=== PATIENT | female | born 1935 | race Caucasian/White ===

== ENCOUNTER 2022-03-22 15:18 | Inpatient (IN) ==
--- NOTE | 2022-03-22 15:30 | DR.SOBA ---
HPI Time Seen Time Seen by Provider: 03/22/22 15:38 Complaints Chief Complaint Doctors Comments: 86 y/o female, h/o COPD, CHF, brought in via EMS with respiratory distress. Pt awake, but in respiratory distress. Unable to verbalize complaints. Unknown how long she has been sick. Does not nod to quest ions. Pulse ox 75% on EMS arrival. 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 Social History Do you use any recreational Drugs:: No ROS Review of Systems Unable to Obtain Due To: Altered mental status PE Vital Signs Vitals: Temperature 97.7 F Pulse Rate 90 Respiratory Rate 25 Blood Pressure [Right Arm] 105/53 Blood Pressure 126/58 O2 Sat by Pulse Oximetry 98 General Limitations: Altered Mental Status General Appearance: In Distress and Other (awake, tachyneic) Eyes Eye exam: PERRL and EOMI ENT ENT Exam: Normal Exam Neck Neck Exam: Normal Inspection Chest Chest Inspection: Symmetric Chest Wall Rise Respiratory Respiratory Exam: Respiratory Distress Respiratory Exam: Left: Rales and Right: Decreased Breath Sounds Cardiovascular Cardiovascular Exam: Regular Rate, Normal Rhythm and Normal Heart Sounds Abdominal Exam Abdominal Exam: Soft; negative Tenderness Extremities Extremities Exam: negative Tenderness and Edema Neurologic Neurological Exam: Other (awake, non verbal) Skin Skin Exam: Warm and Dry MDM Differential Diagnosis Differential Diagnosis: COPD, Pneumonia, Pneumothorax, Pulmonary embolism, Respiratory Failure and Respiratory Insufficiency COURSE Treatment Treatment: 86 y/o female, with COPD, presents with respiratory distress. + altered, unable to provide history, complaints. W/u initiated. Taken off NRB, put on NC. Not oxygenating well on NC. Changed to bipap. 1657 - CXR shows R PTX, about 40%. Call put out to surgery for chest tube. Changed back to NRB for now. 1828 - Dr Vela placed R chest tube. Repeat CXR better. Good pulse ox on 3 L NC now. Call put otu to Dr Portillo, covering for Dr Posada, will admit. ROR Labs Reviewed Laboratory Results Reviewed?: Yes Result Diagrams: 03/22/22 15:50 03/22/22 15:50 Laboratory: WBC 8.0 X10^3/uL (3.6-10.0) 03/22/22 15:50 RBC 3.66 X10^6/uL (3.5-5.4) 03/22/22 15:50 Hgb 9.8 g/dL (12.0-16.0) L 03/22/22 15:50 Hct 30.7 % (36.0-47.0) L 03/22/22 15:50 MCV 83.8 fL (80.0-100.0) 03/22/22 15:50 MCH 26.7 pg (27.0-34.0) L 03/22/22 15:50 MCHC 31.8 g/dL (33.0-35.0) L 03/22/22 15:50 RDW 20.4 % (11.6-16.5) H 03/22/22 15:50 Plt Count 205 X10^3/uL (150.0-450.0) 03/22/22 15:50 Plt Count Comment Adequate (ADEQUATE) 03/22/22 15:50 MPV 9.3 fL (7.4-11.0) 03/22/22 15:50 Neut % (Auto) 46.2 % (42.0-75.0) 03/22/22 15:50 Lymph % (Auto) 41.3 % (21.0-51.0) 03/22/22 15:50 [place] % (Auto) 11.4 % (0.0-13.0) 03/22/22 15:50 Eos % (Auto) 0.8 % (0.9-2.9) L 03/22/22 15:50 Baso % (Auto) 0.3 % (0.2-1.0) 03/22/22 15:50 Neut # (Auto) 3.7 x10^3/uL (2.2-4.8) 03/22/22 15:50 Lymph # (Auto) 3.3 X10^3/uL (1.3-2.9) H 03/22/22 15:50 [place] # (Auto) 0.9 x10^3/uL (0.3-0.8) H 03/22/22 15:50 Eos # (Auto) 0.1 x10^3/uL (0.0-0.2) 03/22/22 15:50 Baso # (Auto) 0.0 X10^3/uL (0.0-0.1) 03/22/22 15:50 Absolute Nucleated RBC 0.2 /100WBC 03/22/22 15:50 Plt Morphology Comment Normal (NORMAL) 03/22/22 15:50 RBC Morphology Abnormal (NORMAL) A 03/22/22 15:50 Hypochromasia Slight A 03/22/22 15:50 Anisocytosis 1+ A 03/22/22 15:50 Sample Site Rbra 03/22/22 15:32 ABG pH 7.110 (7.35-7.45) L* 03/22/22 15:32 ABG pCO2 Not Reportable 03/22/22 15:32 ABG pO2 38.0 mmHg (80.0-100.0) L* 03/22/22 15:32 ABG HCO3 Not Reportable 03/22/22 15:32 ABG O2 Saturation Not Reportable 03/22/22 15:32 ABG Base Excess Not Reportable 03/22/22 15:32 Nabeel Test N/a 03/22/22 15:32 A-a Gradient Not Reportable 03/22/22 15:32 FiO2 32.0 03/22/22 15:32 Blood Gas Comments Pt soha well elj 03/22/22 15:32 Sodium 137 mmol/L (136-145) 03/22/22 15:50 Corrected Sodium 140 mmol/L (136-145) 03/22/22 15:50 Potassium 4.3 mmol/L (3.5-5.1) 03/22/22 15:50 Chloride 96 mmol/L (98-107) L 03/22/22 15:50 Carbon Dioxide 40.8 mmol/L (21-32) H 03/22/22 15:50 BUN 35 mg/dL (7-18) H 03/22/22 15:50 Creatinine 1.16 mg/dL (0.55-1.02) H 03/22/22 15:50 Est GFR (MDRD) Af Amer 57 (>60) L 03/22/22 15:50 Est GFR (MDRD) Non-Af 47 (>60) L 03/22/22 15:50 Glucose 221 mg/dL (65-99) H 03/22/22 15:50 Lactic Acid 1.7 mmol/L (0.4-2.0) 03/22/22 15:50 Calcium 8.6 mg/dL (8.5-10.1) 03/22/22 15:50 Corrected Calcium 9.2 mg/dL (8.5-10.1) 03/22/22 15:50 Total Bilirubin 0.40 mg/dL (0.2-1.0) 03/22/22 15:50 AST 26 Units/L (15-37) 03/22/22 15:50 ALT 14 Units/L (12-78) 03/22/22 15:50 Alkaline Phosphatase 68 Units/L (46-116) 03/22/22 15:50 Creatine Kinase 60 Units/L (26-192) 03/22/22 15:50 CK-MB (CK-2) < 1.0 ng/mL (0-4.0) 03/22/22 15:50 CK/CKMB % Calc 1.7 % (<4) 03/22/22 15:50 Troponin I High Sens 26.6 ng/L (4.0-60.0) 03/22/22 15:50 B-Natriuretic Peptide 125 pg/mL (0-79) H 03/22/22 15:50 Total Protein 7.2 g/dL (6.4-8.2) 03/22/22 15:50 Albumin 3.2 g/dL (3.4-5.0) L 03/22/22 15:50 Globulin 4.0 g/dL (2.5-4.5) 03/22/22 15:50 Albumin/Globulin Ratio 0.8 Ratio (1.1-2.1) L 03/22/22 15:50 SARS-CoV-2 (PCR) Negative (NEGATIVE) 03/22/22 16:10 Influenza Type A (PCR) Negative (NEGATIVE) 03/22/22 16:10 Influenza Type B (PCR) Negative (NEGATIVE) 03/22/22 16:10 RSV (PCR) Negative (NEGATIVE) 03/22/22 16:10 XRAY XRAY Interpreted by: Both X-ray Results: + R sided PTX, 40-50%. EKG Rate: 102 [place]: RAD Rhythm: ST Block: None ST: Nonsp Opioid Opioid Risk Tool Age (Burak box if 16-45): No History of Preadolescent Sexual Abuse: No Total: 0 Total Score Risk Category: Low Risk Copyright: Kahlil GAINES predicting aberrant behaviors Diagnosis Discharge Problem: Spontaneous pneumothorax, COPD exacerbation
[2022-03-22] MEDS ORDERED: SOLU-Medrol 125 MG VIAL IVP ONE (15:38)
[2022-03-22] MEDS ORDERED: DUONEB 0.5 MG/3 MG (3 mL) NEB ONE ×2 (15:38→15:47)
[2022-03-22] MEDS ORDERED: SOLU-Medrol 125 MG VIAL ONE (15:48)
[2022-03-22 16:17] LABS: BASOPHILS % (AUTO) 0.3 % (0.2-1.0); EOSINOPHILS # (AUTO) 0.1 x10^3/uL (0.0-0.2); EOSINOPHILS % (AUTO) 0.8 % (0.9-2.9); HEMATOCRIT 30.7 % (36.0-47.0); HEMOGLOBIN 9.8 g/dL (12.0-16.0); LYMPHOCYTES # (AUTO) 3.3 X10^3/uL (1.3-2.9); LYMPHOCYTES % (AUTO) 41.3 % (21.0-51.0); MEAN CORPUSCULAR HEMOGLOBIN 26.7 pg (27.0-34.0); MEAN CORPUSCULAR HGB CONC 31.8 g/dL (33.0-35.0); MEAN CORPUSCULAR VOLUME 83.8 fL (80.0-100.0); MEAN PLATELET VOLUME 9.3 fL (7.4-11.0); MONOCYTES # (AUTO) 0.9 x10^3/uL (0.3-0.8); MONOCYTES % (AUTO) 11.4 % (0.0-13.0); NEUTROPHILS # (AUTO) 3.7 x10^3/uL (2.2-4.8); NEUTROPHILS % (AUTO) 46.2 % (42.0-75.0); RED BLOOD COUNT 3.66 X10^6/uL (3.5-5.4); RED CELL DISTRIBUTION WIDTH 20.4 % (11.6-16.5)
[2022-03-22 16:41] LABS: ALANINE AMINOTRANSFERASE 14 Units/L (12-78); ALBUMIN 3.2 g/dL (3.4-5.0); ALKALINE PHOSPHATASE 68 Units/L (46-116); ASPARTATE AMINO TRANSFERASE 26 Units/L (15-37); BLOOD UREA NITROGEN 35 mg/dL (7-18); CALCIUM 8.6 mg/dL (8.5-10.1); CARBON DIOXIDE 40.8 mmol/L (21-32); CHLORIDE 96 mmol/L (98-107); CKMB % 1.7 % (<4); COR CA(FOR HYPOALB) 9.2 mg/dL (8.5-10.1); COR NA(FOR HYPERGLY) 140 mmol/L (136-145); CREATINE KINASE 60 Units/L (26-192); CREATINE KINASE MB < 1.0 ng/mL (0-4.0); CREATININE 1.16 mg/dL (0.55-1.02); SODIUM 137 mmol/L (136-145); TOTAL PROTEIN 7.2 g/dL (6.4-8.2); eGFR NON BLACK RACES 47 (>60)
[2022-03-22 16:50] LABS: PLATELET MORPHOLOGY COMMENT NORMAL (NORMAL)
[2022-03-22 16:51] LABS: ANISOCYTOSIS 1+; HYPOCHROMASIA SLIGHT
[2022-03-22 16:59] LABS: LACTIC ACID 1.7 mmol/L (0.4-2.0)
--- NOTE | 2022-03-22 17:38 | RAD ---
HISTORY:Shortness of breathStudy:Single-view chestComparison:09/24/2021Findings:There is a large right pneumothorax of approximately 50%. No mediastinal shift to suggest tension. Left lung is clear. Heart size is normal. Aorta is tortuous and calcified.IMPRESSION:Large right pneumothorax of approximately 50 %.Electronically signed by: KHUSHBU BROCK (Mar 22, 2022 17:37:26)
--- NOTE | 2022-03-22 18:07 | RAD ---
HISTORY:Chest tube placementStudy:Single-view chestComparison:Earlier same dayFindings:Interval placement of right chest tube and re-expansion of the right lung. Tube terminates at the right apex. There is no discernible pneumothorax seen. Left lung is clear.IMPRESSION:Interval right chest tube placement with resolution of right pneumothorax.Electronically signed by: KHUSHBU BROCK (Mar 22, 2022 18:06:23)
[2022-03-22 20:20] LABS: ABG BASE EXCESS 12.5 mmol/L (-2.0-2.0)
[2022-03-22 20:21] LABS: ABG ALLEN TEST POS; ABG HCO3 43.5 mmol/L (22-26)
[2022-03-22] MEDS: NS 1,000 ML IV 1,000 ML IV SCH (20:28)
[2022-03-22] MEDS: PULMICORT NEB TX 0.5 MG NEB SCH (20:51)
[2022-03-22] MEDS: DUONEB 0.5 MG/3 MG (3 mL) NEB SCH (20:51)
[2022-03-22] MEDS ORDERED: ATIVAN TAB 0.5 MG PO SCH (21:00)
[2022-03-22] MEDS ORDERED: ATIVAN INJ 2 MG VIAL IVP SCH (21:00)
[2022-03-22 21:35] LABS: CKMB % 1.8 % (<4); CREATINE KINASE MB 2.1 ng/mL (0-4.0)
--- NOTE | 2022-03-22 22:07 | RAD ---
STUDY: CHEST, 1 VIEWCOMPARISON: 03/22/2022HISTORY: chest tube placement, pneumothorax, copd exacerbationFINDINGS:A right chest tube has been placed with tip projecting over the right upper lung zone. Residual right-sided pneumothorax remains.Cardiomediastinal contour is stable. No pleural effusion is seen. No evidence of a left-sided pneumothorax.IMPRESSION:Right chest tube is been placed with residual right pneumothorax remainingElectronically signed by: Lobito Jain (Mar 22, 2022 22:05:52)
[2022-03-22] MEDS ORDERED: ATIVAN INJ 2 MG VIAL IVP PRN (23:45)
[2022-03-23] MEDS ORDERED: DUONEB 0.5 MG/3 MG (3 mL) NEB SCH
[2022-03-23] MEDS: DUONEB 0.5 MG/3 MG (3 mL) NEB SCH ×6 (00:27→20:30)
[2022-03-23] MEDS: ELIQUIS PO SCH ×3 (01:14→21:10)
[2022-03-23] MEDS: COREG TAB 3.125 MG PO SCH ×3 (01:14→21:09)
[2022-03-23] MEDS: LASIX PO SCH ×3 (01:15→21:10)
[2022-03-23] MEDS: LIPITOR TAB 10 MG PO SCH ×2 (01:16→21:10)
[2022-03-23 03:07] LABS: BASOPHILS % (AUTO) 0.1 % (0.2-1.0); HEMATOCRIT 27.2 % (36.0-47.0); HEMOGLOBIN 8.7 g/dL (12.0-16.0); LYMPHOCYTES # (AUTO) 0.7 X10^3/uL (1.3-2.9); LYMPHOCYTES % (AUTO) 8.8 % (21.0-51.0); MEAN CORPUSCULAR HEMOGLOBIN 26.5 pg (27.0-34.0); MEAN CORPUSCULAR HGB CONC 32.1 g/dL (33.0-35.0); MEAN CORPUSCULAR VOLUME 82.6 fL (80.0-100.0); MEAN PLATELET VOLUME 9.4 fL (7.4-11.0); MONOCYTES # (AUTO) 0.3 x10^3/uL (0.3-0.8); MONOCYTES % (AUTO) 3.7 % (0.0-13.0); NEUTROPHILS # (AUTO) 6.9 x10^3/uL (2.2-4.8); NEUTROPHILS % (AUTO) 87.4 % (42.0-75.0); RED BLOOD COUNT 3.29 X10^6/uL (3.5-5.4); RED CELL DISTRIBUTION WIDTH 20.3 % (11.6-16.5); WHITE BLOOD COUNT 7.9 X10^3/uL (3.6-10.0)
[2022-03-23 03:34] LABS: ALANINE AMINOTRANSFERASE 14 Units/L (12-78); ALBUMIN 2.9 g/dL (3.4-5.0); ALKALINE PHOSPHATASE 69 Units/L (46-116); ASPARTATE AMINO TRANSFERASE 24 Units/L (15-37); BLOOD UREA NITROGEN 37 mg/dL (7-18); CALCIUM 8.5 mg/dL (8.5-10.1); CARBON DIOXIDE 36.2 mmol/L (21-32); CHLORIDE 101 mmol/L (98-107); CKMB % 1.5 % (<4); COR CA(FOR HYPOALB) 9.4 mg/dL (8.5-10.1); COR NA(FOR HYPERGLY) 142 mmol/L (136-145); CREATINE KINASE 131 Units/L (26-192); CREATININE 0.79 mg/dL (0.55-1.02); PLATELET MORPHOLOGY COMMENT NORMAL (NORMAL); SODIUM 141 mmol/L (136-145); TOTAL PROTEIN 6.5 g/dL (6.4-8.2); eGFR NON BLACK RACES > 60 (>60)
[2022-03-23 03:35] LABS: ANISOCYTOSIS 1+; HYPOCHROMASIA SLIGHT
[2022-03-23 05:31] LABS: ABG BASE EXCESS 10.8 mmol/L (-2.0-2.0)
[2022-03-23 05:32] LABS: ABG ALLEN TEST POS; ABG HCO3 39.2 mmol/L (22-26)
[2022-03-23] MEDS: MORPHINE SULFATE INJ 4 MG IVP PRN (08:45)
[2022-03-23] MEDS: PULMICORT NEB TX 0.5 MG NEB SCH ×2 (09:05→20:30)
[2022-03-23] MEDS ORDERED: TYLENOL 325 MG TAB PO PRN (09:08)
[2022-03-23] MEDS: NS 1,000 ML IV 1,000 ML IV SCH (09:33)
--- NOTE | 2022-03-23 10:26 | RAD ---
HISTORYChest 2STUDYAP [id number]/23/2022FINDINGSStable position of right sub apical chest tube. No definite or significant pneumothorax or other extrapulmonary air identified. Heart size normal. No developing infiltrate, pleural fluid or atelectasis. Minimal subcutaneous emphysema right chest wall.IMPRESSIONNo significant pneumothorax demonstrated.Electronically signed by: JACKIE REED (Mar 23, 2022 10:26:14)
--- NOTE | 2022-03-23 11:51 | DR.PROGNOT ---
Hospital Progress Notes - Progress Note for Day of: Progress Note Date: 03/23/22 - Chief Complaint Chief Complaint: stable and comfortable .. s/p placement of RT chest tube for spontaneous pneumothorax .. chest X Ray showed small resedual pneumothorax today. afebrile and stale VSs. - Past Medical Family Social History Past Med/Fam/Surg Hx: No changes since H&P Allergies: Allergies codeine Allergy (Verified 09/24/21 07:06) - Review Of Systems ROS: No change since H&P - Vital Signs Vital Signs: Temperature 97.2 F Pulse Rate 97 Respiratory Rate 20 Blood Pressure [Right Arm] 105/53 Blood Pressure 110/56 O2 Sat by Pulse Oximetry 95 - Physical Exam Oriented: Normal Eyes: Normal Ear: Normal Nose: Normal Respiratory: Right (clear lung , chest tube in place with minimal fluid drainage .. ) Cardiovascular: Normal : Normal Speech Pattern: Clear, Appropriate - Laboratory and Diagnostics Result Diagrams: 03/23/22 02:40 03/23/22 02:40 Labs: Laboratory WBC 7.9 X10^3/uL (3.6-10.0) 03/23/22 02:40 RBC 3.29 X10^6/uL (3.5-5.4) L 03/23/22 02:40 Hgb 8.7 g/dL (12.0-16.0) L 03/23/22 02:40 Hct 27.2 % (36.0-47.0) L 03/23/22 02:40 MCV 82.6 fL (80.0-100.0) 03/23/22 02:40 MCH 26.5 pg (27.0-34.0) L 03/23/22 02:40 MCHC 32.1 g/dL (33.0-35.0) L 03/23/22 02:40 RDW 20.3 % (11.6-16.5) H 03/23/22 02:40 Plt Count 168 X10^3/uL (150.0-450.0) 03/23/22 02:40 Plt Count Comment Adequate (ADEQUATE) 03/23/22 02:40 MPV 9.4 fL (7.4-11.0) 03/23/22 02:40 Neut % (Auto) 87.4 % (42.0-75.0) H 03/23/22 02:40 Lymph % (Auto) 8.8 % (21.0-51.0) L 03/23/22 02:40 [place] % (Auto) 3.7 % (0.0-13.0) 03/23/22 02:40 Eos % (Auto) 0.0 % (0.9-2.9) L 03/23/22 02:40 Baso % (Auto) 0.1 % (0.2-1.0) L 03/23/22 02:40 Neut # (Auto) 6.9 x10^3/uL (2.2-4.8) H 03/23/22 02:40 Lymph # (Auto) 0.7 X10^3/uL (1.3-2.9) L 03/23/22 02:40 [place] # (Auto) 0.3 x10^3/uL (0.3-0.8) 03/23/22 02:40 Eos # (Auto) 0.0 x10^3/uL (0.0-0.2) 03/23/22 02:40 Baso # (Auto) 0.0 X10^3/uL (0.0-0.1) 03/23/22 02:40 Absolute Nucleated RBC 0.0 /100WBC 03/23/22 02:40 Plt Morphology Comment Normal (NORMAL) 03/23/22 02:40 RBC Morphology Abnormal (NORMAL) A 03/23/22 02:40 Hypochromasia Slight A 03/23/22 02:40 Anisocytosis 1+ A 03/23/22 02:40 Sample Site Lrad 03/23/22 05:25 ABG pH 7.350 (7.35-7.45) 03/23/22 05:25 ABG pCO2 71.0 mmHg (35.0-45.0) H* 03/23/22 05:25 ABG pO2 69.0 mmHg (80.0-100.0) L 03/23/22 05:25 ABG HCO3 39.2 mmol/L (22-26) H* 03/23/22 05:25 ABG O2 Saturation 93.0 % (90-100) 03/23/22 05:25 ABG Base Excess 10.8 mmol/L (-2.0-2.0) H 03/23/22 05:25 Nabeel Test Pos 03/23/22 05:25 A-a Gradient 92.0 mmHg 03/23/22 05:25 FiO2 35.0 03/23/22 05:25 Blood Gas Comments João well ms 03/23/22 05:25 Sodium 141 mmol/L (136-145) 03/23/22 02:40 Corrected Sodium 142 mmol/L (136-145) 03/23/22 02:40 Potassium 4.1 mmol/L (3.5-5.1) 03/23/22 02:40 Chloride 101 mmol/L (98-107) 03/23/22 02:40 Carbon Dioxide 36.2 mmol/L (21-32) H 03/23/22 02:40 BUN 37 mg/dL (7-18) H 03/23/22 02:40 Creatinine 0.79 mg/dL (0.55-1.02) 03/23/22 02:40 Est GFR (MDRD) Af Amer > 60 (>60) 03/23/22 02:40 Est GFR (MDRD) Non-Af > 60 (>60) 03/23/22 02:40 Glucose 125 mg/dL (65-99) H 03/23/22 02:40 Lactic Acid 1.7 mmol/L (0.4-2.0) 03/22/22 15:50 Calcium 8.5 mg/dL (8.5-10.1) 03/23/22 02:40 Corrected Calcium 9.4 mg/dL (8.5-10.1) 03/23/22 02:40 Total Bilirubin 0.40 mg/dL (0.2-1.0) 03/23/22 02:40 AST 24 Units/L (15-37) 03/23/22 02:40 ALT 14 Units/L (12-78) 03/23/22 02:40 Alkaline Phosphatase 69 Units/L (46-116) 03/23/22 02:40 Creatine Kinase 131 Units/L (26-192) 03/23/22 02:40 CK-MB (CK-2) 2.0 ng/mL (0-4.0) 03/23/22 02:40 CK/CKMB % Calc 1.5 % (<4) 03/23/22 02:40 Troponin I High Sens 81.4 ng/L (4.0-60.0) H* 03/23/22 02:40 B-Natriuretic Peptide 125 pg/mL (0-79) H 03/22/22 15:50 Total Protein 6.5 g/dL (6.4-8.2) 03/23/22 02:40 Albumin 2.9 g/dL (3.4-5.0) L 03/23/22 02:40 Globulin 3.6 g/dL (2.5-4.5) 03/23/22 02:40 Albumin/Globulin Ratio 0.8 Ratio (1.1-2.1) L 03/23/22 02:40 SARS-CoV-2 (PCR) Negative (NEGATIVE) 03/22/22 16:10 Influenza Type A (PCR) Negative (NEGATIVE) 03/22/22 16:10 Influenza Type B (PCR) Negative (NEGATIVE) 03/22/22 16:10 RSV (PCR) Negative (NEGATIVE) 03/22/22 16:10 - Assessment and Plan 1: recurrent spontaneous pneuomothorax .. ( had one years ago .. COPD . s/p placement of RT chest tube . same plan . - Problem Patient Problems: Patient Problems Spontaneous pneumothorax (Acute) J93.83 COPD exacerbation (Acute) J44.1
[2022-03-23] MEDS: ULTRAM PO PRN (17:14)
[2022-03-23] MEDS ORDERED: BUTT CREAM (COMPOUND) ONE (19:07)
[2022-03-23] MEDS: BUTT CREAM (COMPOUND) TOP PRN (19:15)
--- NOTE | 2022-03-23 20:36 | DR.H&P ---
H&P History & Physical for Day of: H&P Date: 03/23/22 Chief Complaint Chief Complaint: Respiratory distress. Allergies Allergies Allergy/AdvReac Type Severity Reaction Status Date / Time codeine Allergy Verified 09/24/21 07:06 History of Present Illness History of Present Illness: This is an 86-year-old white female who presented to [facility] emergency department via EMS for respiratory distress. She was noted to have to be hypoxic come in with SPO2 of 75% on room air. Chest x-ray was done and revealed she had a right-sided pneumothorax with approximately 50% collapsed lung. She is a poor historian and is difficult obtaining a history from her. Dr. Mc our general surgeon saw the patient in the emergency department and placed a chest tube in the right lung and repeat x-ray after that showed it had re-expanded. Not long after getting to the ICU she got into respiratory distress again and she was put back on BiPAP. Her O2 sats came back up after she was started on the BiPAP. Past Medical History Past Medical History: COPD Past Surgical History Surgical History: Hysterectomy and Ortho Surgery Family History Family Medical History: Cancer Social History Does patient currently use any type of tobacco product: Yes Have you used tobacco products in the last 12 months: Yes Type of Tobacco Use: VAPE Does any household member use tobacco: Yes Alcohol Use: None Drug Use: None Medications Home Medications: codeine Allergy (Verified 09/24/21 07:06) CONTINUE taking the following medications apixaban [Eliquis] 5 mg PO BID 03/22/22 [History] atorvastatin [Lipitor] 10 mg PO HS 03/22/22 [History] carvedilol [Coreg] 3.125 mg PO BID 03/22/22 [History] furosemide [Lasix] 20 mg PO BID 03/22/22 [History] lorazepam 0.5 mg PO BID 03/22/22 [History] potassium chloride 10 meq PO BID 03/22/22 [History] Labs Result Diagrams: 03/23/22 02:40 03/23/22 02:40 Labs: Laboratory WBC 7.9 X10^3/uL (3.6-10.0) 03/23/22 02:40 RBC 3.29 X10^6/uL (3.5-5.4) L 03/23/22 02:40 Hgb 8.7 g/dL (12.0-16.0) L 03/23/22 02:40 Hct 27.2 % (36.0-47.0) L 03/23/22 02:40 MCV 82.6 fL (80.0-100.0) 03/23/22 02:40 MCH 26.5 pg (27.0-34.0) L 03/23/22 02:40 MCHC 32.1 g/dL (33.0-35.0) L 03/23/22 02:40 RDW 20.3 % (11.6-16.5) H 03/23/22 02:40 Plt Count 168 X10^3/uL (150.0-450.0) 03/23/22 02:40 Plt Count Comment Adequate (ADEQUATE) 03/23/22 02:40 MPV 9.4 fL (7.4-11.0) 03/23/22 02:40 Neut % (Auto) 87.4 % (42.0-75.0) H 03/23/22 02:40 Lymph % (Auto) 8.8 % (21.0-51.0) L 03/23/22 02:40 [place] % (Auto) 3.7 % (0.0-13.0) 03/23/22 02:40 Eos % (Auto) 0.0 % (0.9-2.9) L 03/23/22 02:40 Baso % (Auto) 0.1 % (0.2-1.0) L 03/23/22 02:40 Neut # (Auto) 6.9 x10^3/uL (2.2-4.8) H 03/23/22 02:40 Lymph # (Auto) 0.7 X10^3/uL (1.3-2.9) L 03/23/22 02:40 [place] # (Auto) 0.3 x10^3/uL (0.3-0.8) 03/23/22 02:40 Eos # (Auto) 0.0 x10^3/uL (0.0-0.2) 03/23/22 02:40 Baso # (Auto) 0.0 X10^3/uL (0.0-0.1) 03/23/22 02:40 Absolute Nucleated RBC 0.0 /100WBC 03/23/22 02:40 Plt Morphology Comment Normal (NORMAL) 03/23/22 02:40 RBC Morphology Abnormal (NORMAL) A 03/23/22 02:40 Hypochromasia Slight A 03/23/22 02:40 Anisocytosis 1+ A 03/23/22 02:40 Sample Site Lrad 03/23/22 05:25 ABG pH 7.350 (7.35-7.45) 03/23/22 05:25 ABG pCO2 71.0 mmHg (35.0-45.0) H* 03/23/22 05:25 ABG pO2 69.0 mmHg (80.0-100.0) L 03/23/22 05:25 ABG HCO3 39.2 mmol/L (22-26) H* 03/23/22 05:25 ABG O2 Saturation 93.0 % (90-100) 03/23/22 05:25 ABG Base Excess 10.8 mmol/L (-2.0-2.0) H 03/23/22 05:25 Nabeel Test Pos 03/23/22 05:25 A-a Gradient 92.0 mmHg 03/23/22 05:25 FiO2 35.0 03/23/22 05:25 Blood Gas Comments João well ms 03/23/22 05:25 Sodium 141 mmol/L (136-145) 03/23/22 02:40 Corrected Sodium 142 mmol/L (136-145) 03/23/22 02:40 Potassium 4.1 mmol/L (3.5-5.1) 03/23/22 02:40 Chloride 101 mmol/L (98-107) 03/23/22 02:40 Carbon Dioxide 36.2 mmol/L (21-32) H 03/23/22 02:40 BUN 37 mg/dL (7-18) H 03/23/22 02:40 Creatinine 0.79 mg/dL (0.55-1.02) 03/23/22 02:40 Est GFR (MDRD) Af Amer > 60 (>60) 03/23/22 02:40 Est GFR (MDRD) Non-Af > 60 (>60) 03/23/22 02:40 Glucose 125 mg/dL (65-99) H 03/23/22 02:40 Lactic Acid 1.7 mmol/L (0.4-2.0) 03/22/22 15:50 Calcium 8.5 mg/dL (8.5-10.1) 03/23/22 02:40 Corrected Calcium 9.4 mg/dL (8.5-10.1) 03/23/22 02:40 Total Bilirubin 0.40 mg/dL (0.2-1.0) 03/23/22 02:40 AST 24 Units/L (15-37) 03/23/22 02:40 ALT 14 Units/L (12-78) 03/23/22 02:40 Alkaline Phosphatase 69 Units/L (46-116) 03/23/22 02:40 Creatine Kinase 131 Units/L (26-192) 03/23/22 02:40 CK-MB (CK-2) 2.0 ng/mL (0-4.0) 03/23/22 02:40 CK/CKMB % Calc 1.5 % (<4) 03/23/22 02:40 Troponin I High Sens 81.4 ng/L (4.0-60.0) H* 03/23/22 02:40 B-Natriuretic Peptide 125 pg/mL (0-79) H 03/22/22 15:50 Total Protein 6.5 g/dL (6.4-8.2) 03/23/22 02:40 Albumin 2.9 g/dL (3.4-5.0) L 03/23/22 02:40 Globulin 3.6 g/dL (2.5-4.5) 03/23/22 02:40 Albumin/Globulin Ratio 0.8 Ratio (1.1-2.1) L 03/23/22 02:40 SARS-CoV-2 (PCR) Negative (NEGATIVE) 03/22/22 16:10 Influenza Type A (PCR) Negative (NEGATIVE) 03/22/22 16:10 Influenza Type B (PCR) Negative (NEGATIVE) 03/22/22 16:10 RSV (PCR) Negative (NEGATIVE) 03/22/22 16:10 Review of Systems Constitutional: Weakness Eyes: No Symptoms Reported ENT: No Symptoms Reported Respiratory: Shortness of Breath Cardiovascular: No Symptoms Reported Gastrointestinal: No Symptoms Reported Genitourinary: No Symptoms Reported Musculoskeletal: Back Pain Skin: No Symptoms Reported Neurological: No Symptoms Reported Physical Exam Vital Signs: Temperature 97.5 F Pulse Rate 90 Respiratory Rate 25 Blood Pressure [Right Arm] 105/53 Blood Pressure 138/58 O2 Sat by Pulse Oximetry 97 Oriented: Normal Eyes: Normal Ear: Normal Nose: Normal Throat: Normal Respiratory: Diminished Throughout, RUL Diminished, RML Diminished and RLL Diminished Cardiovascular: Normal : Normal Auscultation: Bowel Sounds: Normal Palpation: Normal Tenderness: Normal Skin: Normal Musculoskeletal: Back:Thoracic and Back:Lumbar Psychiatric: Normal Mood Description: Calm Affect: Normal Speech Pattern: Appropriate Assessment/Plan (1) Spontaneous pneumothorax: Status: Acute Plan: Continue with chest tube at this time and repeat chest x-ray in the morning as well as an ABG. (2) COPD exacerbation: Status: Acute Plan: Jet nebs, IV Solu-Medrol and IV antibiotics. Review H&P Reviewed: Yes Patient was examined?: Yes
[2022-03-23] MEDS: SOLU-Medrol 125 MG VIAL IVP SCH (21:12)
[2022-03-24] MEDS: DUONEB 0.5 MG/3 MG (3 mL) NEB SCH ×7 (00:39→20:05)
[2022-03-24] MEDS: SOLU-Medrol 125 MG VIAL IVP SCH ×3 (05:19→21:06)
[2022-03-24 05:29] LABS: BASOPHILS % (AUTO) 0.1 % (0.2-1.0); HEMATOCRIT 23.7 % (36.0-47.0); HEMOGLOBIN 7.8 g/dL (12.0-16.0); LYMPHOCYTES # (AUTO) 0.7 X10^3/uL (1.3-2.9); LYMPHOCYTES % (AUTO) 10.7 % (21.0-51.0); MEAN CORPUSCULAR HEMOGLOBIN 26.9 pg (27.0-34.0); MEAN CORPUSCULAR VOLUME 81.5 fL (80.0-100.0); MEAN PLATELET VOLUME 9.4 fL (7.4-11.0); MONOCYTES # (AUTO) 0.1 x10^3/uL (0.3-0.8); MONOCYTES % (AUTO) 2.1 % (0.0-13.0); NEUTROPHILS # (AUTO) 5.5 x10^3/uL (2.2-4.8); NEUTROPHILS % (AUTO) 87.1 % (42.0-75.0); RED BLOOD COUNT 2.91 X10^6/uL (3.5-5.4); RED CELL DISTRIBUTION WIDTH 20.7 % (11.6-16.5); WHITE BLOOD COUNT 6.4 X10^3/uL (3.6-10.0)
[2022-03-24 05:33] LABS: ABG BASE EXCESS 15.6 mmol/L (-2.0-2.0)
[2022-03-24 05:34] LABS: ABG ALLEN TEST POS; ABG HCO3 41.7 mmol/L (22-26)
[2022-03-24 05:44] LABS: ANISOCYTOSIS 1+; HYPOCHROMASIA 1+; PLATELET MORPHOLOGY COMMENT NORMAL (NORMAL)
[2022-03-24 05:57] LABS: ALANINE AMINOTRANSFERASE 14 Units/L (12-78); ALBUMIN 2.5 g/dL (3.4-5.0); ALKALINE PHOSPHATASE 51 Units/L (46-116); ASPARTATE AMINO TRANSFERASE 21 Units/L (15-37); BLOOD UREA NITROGEN 29 mg/dL (7-18); CALCIUM 8.2 mg/dL (8.5-10.1); CARBON DIOXIDE 36.9 mmol/L (21-32); CHLORIDE 102 mmol/L (98-107); COR CA(FOR HYPOALB) 9.4 mg/dL (8.5-10.1); COR NA(FOR HYPERGLY) 145 mmol/L (136-145); CREATINE KINASE 105 Units/L (26-192); CREATINE KINASE MB < 1.0 ng/mL (0-4.0); CREATININE 0.62 mg/dL (0.55-1.02); SODIUM 144 mmol/L (136-145); TOTAL PROTEIN 5.8 g/dL (6.4-8.2); eGFR NON BLACK RACES > 60 (>60)
--- NOTE | 2022-03-24 06:25 | RAD ---
HISTORYHypoxia, pneumothoraxSTUDYChest AP [id number]/24/2022FINDINGSTher e is a right chest tube in place with its tip in the right apical hemithorax. No definite visible pneumothorax. Heart size is normal. [place] are normal. Lungs are hyperinflated but free of acute infiltrates. Minimal residual subcutaneous emphysema right upper hemithorax. Linear density paralleling the mid left chest wall is likely skin fold artifact. No pleural effusions are identified.IMPRESSIONNo residual or recurrent right pneumothoraxLungs hyperinflated but free of acute infiltratesElectronically signed by: MARISSA DICKERSON (Mar 24, 2022 06:25:29)
[2022-03-24] MEDS: LASIX PO SCH ×2 (08:31→20:36)
[2022-03-24] MEDS: ELIQUIS PO SCH ×2 (08:31→20:36)
[2022-03-24] MEDS: COREG TAB 3.125 MG PO SCH ×2 (08:31→20:36)
[2022-03-24] MEDS: LEVAQUIN PREMIX IV 500 MG 500 MG/100 ML BAG IV SCH (08:32)
[2022-03-24] MEDS: PULMICORT NEB TX 0.5 MG NEB SCH ×2 (08:53→20:05)
[2022-03-24] MEDS ORDERED: KLOR-CON PO PRN (09:36)
[2022-03-24] MEDS ORDERED: POTASSIUM CHL 60 MEQ/NS 0.45% 500 ML IV PRN (09:36)
[2022-03-24] MEDS ORDERED: POTASSIUM CHLORIDE LIQ 20 MEQ UDC PO PRN (09:36)
[2022-03-24] MEDS ORDERED: MICRO K EXTEN CAP 10 MEQ PO PRN (09:36)
[2022-03-24] MEDS ORDERED: K-RIDER 10 MEQ/NS 100 ML 10 MEQ/100 ML BAG IV PRN (09:36)
[2022-03-24] MEDS ORDERED: POTASSIUM CHL 40 MEQ/NS 0.45% 500 ML IV PRN (09:36)
[2022-03-24] MEDS: K-DUR TAB 20 MEQ PO PRN (11:04)
[2022-03-24] MEDS: NS 1,000 ML IV 1,000 ML IV SCH ×3 (11:04→20:14)
[2022-03-24] MEDS: ULTRAM PO PRN ×2 (11:07→21:06)
--- NOTE | 2022-03-24 15:34 | DR.PROGNOT ---
Hospital Progress Notes - Progress Note for Day of: Progress Note Date: 03/24/22 - Chief Complaint Chief Complaint: stable and comfortable .. s/p placement of RT chest tube for spontaneous pneumothorax .. chest X Ray showed no pneumothorax with expanded lung. afebrile and stale VSs. - Past Medical Family Social History Past Med/Fam/Surg Hx: No changes since H&P Allergies: Allergies codeine Allergy (Verified 09/24/21 07:06) - Review Of Systems ROS: No change since H&P - Vital Signs Vital Signs: Temperature 97.6 F Pulse Rate 98 Respiratory Rate 26 Blood Pressure [Right Arm] 105/53 Blood Pressure 148/66 O2 Sat by Pulse Oximetry 98 - Physical Exam Oriented: Normal Eyes: Normal Ear: Normal Nose: Normal Throat: Normal Respiratory: Right (clear lung , chest tube in place with minimal fluid drain age .. ) Cardiovascular: Normal : Normal GI:Auscultation: Normal GI:Palpation: Normal GI: Tenderness: Normal Skin: Normal Musculoskeletal: Back:Thoracic, Back:Lumbar Psychiatric: Normal Mood Description: Calm Affect: Normal Speech Pattern: Appropriate - Laboratory and Diagnostics Result Diagrams: 03/24/22 04:00 03/24/22 04:00 Labs: 03/22/22 15:50 Blood Blood Culture - Preliminary 03/22/22 16:02 Blood Blood Culture - Preliminary Laboratory WBC 6.4 X10^3/uL (3.6-10.0) 03/24/22 04:00 RBC 2.91 X10^6/uL (3.5-5.4) L 03/24/22 04:00 Hgb 7.8 g/dL (12.0-16.0) L 03/24/22 04:00 Hct 23.7 % (36.0-47.0) L 03/24/22 04:00 MCV 81.5 fL (80.0-100.0) 03/24/22 04:00 MCH 26.9 pg (27.0-34.0) L 03/24/22 04:00 MCHC 33.0 g/dL (33.0-35.0) 03/24/22 04:00 RDW 20.7 % (11.6-16.5) H 03/24/22 04:00 Plt Count 158 X10^3/uL (150.0-450.0) 03/24/22 04:00 Plt Count Comment Adequate (ADEQUATE) 03/24/22 04:00 MPV 9.4 fL (7.4-11.0) 03/24/22 04:00 Neut % (Auto) 87.1 % (42.0-75.0) H 03/24/22 04:00 Lymph % (Auto) 10.7 % (21.0-51.0) L 03/24/22 04:00 [place] % (Auto) 2.1 % (0.0-13.0) 03/24/22 04:00 Eos % (Auto) 0.0 % (0.9-2.9) L 03/24/22 04:00 Baso % (Auto) 0.1 % (0.2-1.0) L 03/24/22 04:00 Neut # (Auto) 5.5 x10^3/uL (2.2-4.8) H 03/24/22 04:00 Lymph # (Auto) 0.7 X10^3/uL (1.3-2.9) L 03/24/22 04:00 Trinity # (Auto) 0.1 x10^3/uL (0.3-0.8) L 03/24/22 04:00 Eos # (Auto) 0.0 x10^3/uL (0.0-0.2) 03/24/22 04:00 Baso # (Auto) 0.0 X10^3/uL (0.0-0.1) 03/24/22 04:00 Absolute Nucleated RBC 0.1 /100WBC 03/24/22 04:00 Plt Morphology Comment Normal (NORMAL) 03/24/22 04:00 RBC Morphology Abnormal (NORMAL) A 03/24/22 04:00 Hypochromasia 1+ A 03/24/22 04:00 Anisocytosis 1+ A 03/24/22 04:00 Sample Site Lr 03/24/22 05:00 ABG pH 7.480 (7.35-7.45) H 03/24/22 05:00 ABG pCO2 56.0 mmHg (35.0-45.0) H* 03/24/22 05:00 ABG pO2 72.0 mmHg (80.0-100.0) L 03/24/22 05:00 ABG HCO3 41.7 mmol/L (22-26) H* 03/24/22 05:00 ABG O2 Saturation 95.0 % (90-100) 03/24/22 05:00 ABG Base Excess 15.6 mmol/L (-2.0-2.0) H 03/24/22 05:00 Nabeel Test Pos 03/24/22 05:00 A-a Gradient 58.0 mmHg 03/24/22 05:00 FiO2 28.0 03/24/22 05:00 Blood Gas Comments João well sw 03/24/22 05:00 Sodium 144 mmol/L (136-145) 03/24/22 04:00 Corrected Sodium 145 mmol/L (136-145) 03/24/22 04:00 Potassium 3.6 mmol/L (3.5-5.1) 03/24/22 04:00 Chloride 102 mmol/L (98-107) 03/24/22 04:00 Carbon Dioxide 36.9 mmol/L (21-32) H 03/24/22 04:00 BUN 29 mg/dL (7-18) H 03/24/22 04:00 Creatinine 0.62 mg/dL (0.55-1.02) 03/24/22 04:00 Est GFR (MDRD) Af Amer > 60 (>60) 03/24/22 04:00 Est GFR (MDRD) Non-Af > 60 (>60) 03/24/22 04:00 Glucose 160 mg/dL (65-99) H 03/24/22 04:00 Lactic Acid 1.7 mmol/L (0.4-2.0) 03/22/22 15:50 Calcium 8.2 mg/dL (8.5-10.1) L 03/24/22 04:00 Corrected Calcium 9.4 mg/dL (8.5-10.1) 03/24/22 04:00 Total Bilirubin 0.20 mg/dL (0.2-1.0) 03/24/22 04:00 AST 21 Units/L (15-37) 03/24/22 04:00 ALT 14 Units/L (12-78) 03/24/22 04:00 Alkaline Phosphatase 51 Units/L (46-116) 03/24/22 04:00 Creatine Kinase 105 Units/L (26-192) 03/24/22 04:00 CK-MB (CK-2) < 1.0 ng/mL (0-4.0) 03/24/22 04:00 CK/CKMB % Calc 1.0 % (<4) 03/24/22 04:00 Troponin I High Sens 41.6 ng/L (4.0-60.0) 03/24/22 04:00 B-Natriuretic Peptide 125 pg/mL (0-79) H 03/22/22 15:50 Total Protein 5.8 g/dL (6.4-8.2) L 03/24/22 04:00 Albumin 2.5 g/dL (3.4-5.0) L 03/24/22 04:00 Globulin 3.3 g/dL (2.5-4.5) 03/24/22 04:00 Albumin/Globulin Ratio 0.8 Ratio (1.1-2.1) L 03/24/22 04:00 SARS-CoV-2 (PCR) Negative (NEGATIVE) 03/22/22 16:10 Influenza Type A (PCR) Negative (NEGATIVE) 03/22/22 16:10 Influenza Type B (PCR) Negative (NEGATIVE) 03/22/22 16:10 RSV (PCR) Negative (NEGATIVE) 03/22/22 16:10 - Assessment and Plan 1: recurrent spontaneous pneuomothorax .. ( had one years ago .. COPD . s/p placement of RT chest tube . same plan . - Problem Patient Problems: Patient Problems Spontaneous pneumothorax (Acute) J93.83 COPD exacerbation (Acute) J44.1
[2022-03-24 16:25] LABS: HEMATOCRIT 24.5 % (36.0-47.0); HEMOGLOBIN 7.9 g/dL (12.0-16.0)
[2022-03-24] MEDS: LIPITOR TAB 10 MG PO SCH (20:36)
[2022-03-25] MEDS: DUONEB 0.5 MG/3 MG (3 mL) NEB SCH ×6 (00:10→20:17)
[2022-03-25] MEDS: NS 1,000 ML IV 1,000 ML IV SCH ×2 (03:28→17:02)
[2022-03-25 04:59] LABS: BASOPHILS % (AUTO) 0.1 % (0.2-1.0); HEMATOCRIT 22.9 % (36.0-47.0); HEMOGLOBIN 7.4 g/dL (12.0-16.0); LYMPHOCYTES # (AUTO) 0.5 X10^3/uL (1.3-2.9); LYMPHOCYTES % (AUTO) 16.1 % (21.0-51.0); MEAN CORPUSCULAR HEMOGLOBIN 26.5 pg (27.0-34.0); MEAN CORPUSCULAR HGB CONC 32.3 g/dL (33.0-35.0); MEAN PLATELET VOLUME 9.4 fL (7.4-11.0); MONOCYTES # (AUTO) 0.2 x10^3/uL (0.3-0.8); MONOCYTES % (AUTO) 6.2 % (0.0-13.0); NEUTROPHILS # (AUTO) 2.6 x10^3/uL (2.2-4.8); NEUTROPHILS % (AUTO) 77.6 % (42.0-75.0); RED CELL DISTRIBUTION WIDTH 20.4 % (11.6-16.5); WHITE BLOOD COUNT 3.3 X10^3/uL (3.6-10.0)
[2022-03-25 05:05] LABS: ALANINE AMINOTRANSFERASE 10 Units/L (12-78); ALBUMIN 2.3 g/dL (3.4-5.0); ALKALINE PHOSPHATASE 44 Units/L (46-116); ASPARTATE AMINO TRANSFERASE 16 Units/L (15-37); BLOOD UREA NITROGEN 17 mg/dL (7-18); CALCIUM 7.9 mg/dL (8.5-10.1); CARBON DIOXIDE 38.6 mmol/L (21-32); CHLORIDE 104 mmol/L (98-107); COR CA(FOR HYPOALB) 9.3 mg/dL (8.5-10.1); COR NA(FOR HYPERGLY) 147 mmol/L (136-145); CREATININE 0.58 mg/dL (0.55-1.02); SODIUM 145 mmol/L (136-145); TOTAL PROTEIN 5.4 g/dL (6.4-8.2); eGFR NON BLACK RACES > 60 (>60)
[2022-03-25 05:09] LABS: ANISOCYTOSIS 1+; HYPOCHROMASIA 1+; PLATELET MORPHOLOGY COMMENT NORMAL (NORMAL)
--- NOTE | 2022-03-25 06:02 | RAD ---
HISTORYSOB Relevant Clinical InformationSTUDYCHEST, 1 [id number] trachea is midline. Right chest tube unchanged. The cardiac silhouette is unremarkable.Chronic interstitial lung changes with flattening of the diaphragm consistent with COPD is observed. No pneumothorax. The lungs are clear without focal infiltrate or effusion. The bony thorax is unremarkable.IMPRESSIONCOPD.Right chest tube unchanged.No pneumothorax..Electronically signed by: Sekou Bae (Mar 25, 2022 06:01:52)
[2022-03-25] MEDS: SOLU-Medrol 125 MG VIAL IVP SCH ×3 (06:07→21:04)
[2022-03-25] MEDS: PULMICORT NEB TX 0.5 MG NEB SCH ×2 (08:55→20:17)
[2022-03-25] MEDS: COREG TAB 3.125 MG PO SCH ×2 (09:30→21:41)
[2022-03-25] MEDS: ELIQUIS PO SCH ×2 (09:31→21:41)
[2022-03-25] MEDS: LASIX PO SCH ×2 (09:31→21:41)
[2022-03-25] MEDS: LEVAQUIN PREMIX IV 500 MG 500 MG/100 ML BAG IV SCH (09:31)
[2022-03-25] MEDS: K-DUR TAB 20 MEQ PO PRN (09:32)
--- NOTE | 2022-03-25 10:06 | PCM.PROG ---
Progress Note - Progress Note for Day of Date of Exam: 03/24/22 - Subjective Subjective: WAS ADMITTED FOR A SPONTANEOUS RIGHT SIDED PNEUMOTHORAX AND COPD EXACERBATION. INITIAL CHEST XRAY SHOWED A 50% COLLAPSED LUNG. SATURATIONS WERE IN THE 70s. INSERTED A CHEST TUBE. TODAY, SHE IS ALERT AND ORIENTED, LYING IN BED ON MORNING ROUNDS. SHE DENIES CURRENT COMPLA INTS. SHE IS CURRENTLY UTILIZING OXYGEN VIA NASAL CANNULA AT 2 LPM. ON EXAMINATION, HEART IS REGULAR IN RATE AND RHYTHM. BILATERAL LUNGS NOTED WITH DIMINISHED LUNG SOUNDS THROUGHOUT. RIGHT SIDED CHEST TUBE NOTED. HRE VITALS THIS MORNING ARE: 97.6-87-12-99%-116/57. LABS WERE OBTAINED. ABNORMAL LAB VALUES INCLUDED THE FOLLOWING: RBC 2.91, HGB 7.8, HCT 23.7, CARBON DIOXIDE 36.9, BUN 29, GLUCOSE 160, CALCIUM 8.2, TOTAL PROTEIN 5.8, ALBUMIN 2.5. ABG OBTAINED AND REVEALED: PH 7.480, PC02 56, P02 72, HC03 41.7, 02 SAT 95, A-A GRADIENT 58, FI02 28.0. BLOOD CULTURES ARE PENDING. A CHEST XRAY WAS OBTAINED AND REVEALED: No residual or recurrent right pneumothorax. Lungs hyperinflated but free of acute infiltrates. SHE IS CURRENTLY RECEIVING NORMAL SALINE AT 80 ML/HR, LEVAQUIN 500MG IV DAILY, SOLU-MEDROL 80MG IV Q8H, DUONEBS Q4H, PULMICORT NEBS BID, MORPHINE 2-5MG IV Q4H PRN, THE POTASSIUM PROTOCOL, AND HER HOME MEDICATIONS WERE RESUMED. WE WILL CONTINUE WITH CURRENT PLAN OF CARE TODAY. OTHERWISE, WE PLAN TO FOLLOW-UP WITH AM LABS AND CONTINUE TO MONITOR. TIME SPENT ON CLINICAL ASSESSMENT, REVIEWING LABS AND IMAGING, DECISION MAKING, AND DOCUMENTATION GREATER THAN 45 MINUTES. - Past Medical Family Social History Past Med/Fam/Surg Hx: No changes since H&P Allergies: Allergies codeine Allergy (Verified 09/24/21 07:06) - Review of Systems ROS: No change since H&P - Vital Signs and I&O's Vital Signs: Temperature 97.2 F Pulse Rate 89 Respiratory Rate 15 Blood Pressure [Right Arm] 105/53 Blood Pressure 137/61 O2 Sat by Pulse Oximetry 99 Intake and Output: Intake & Output 04/23/03/23/22 03/24/22 03/25/22 11:59 11:59 11:59 11:59 Intake Total 781 / 781 3009 / 3009 3523 / 3523 Output Total 562 / 562 722 / 722 1348 / 1348 Balance 219 / 219 2287 / 2287 2175 / 2175 - Physical Exam Oriented: Normal Eyes: Normal Ear: Normal Nose: Normal Throat: Normal Respiratory: Right (clear lung , chest tube in place with minimal fluid drainage .. ), Diminished Cardiovascular: Normal : Normal Auscultation: Bowel Sounds: Normal Palpation: Normal Tenderness: Normal Skin: Normal Musculoskeletal: Back:Thoracic, Back:Lumbar Psychiatric: Normal Mood Description: Calm Affect: Normal Speech Pattern: Clear, Appropriate - Laboratory and Diagnostics Result Diagrams: 03/25/22 04:15 03/25/22 04:15 Labs: 03/22/22 15:50 Blood Blood Culture - Preliminary 03/22/22 16:02 Blood Blood Culture - Preliminary Laboratory WBC 3.3 X10^3/uL (3.6-10.0) L 03/25/22 04:15 RBC 2.80 X10^6/uL (3.5-5.4) L 03/25/22 04:15 Hgb 7.4 g/dL (12.0-16.0) L 03/25/22 04:15 Hct 22.9 % (36.0-47.0) L 03/25/22 04:15 MCV 82.0 fL (80.0-100.0) 03/25/22 04:15 MCH 26.5 pg (27.0-34.0) L 03/25/22 04:15 MCHC 32.3 g/dL (33.0-35.0) L 03/25/22 04:15 RDW 20.4 % (11.6-16.5) H 03/25/22 04:15 Plt Count 169 X10^3/uL (150.0-450.0) 03/25/22 04:15 Plt Count Comment Adequate (ADEQUATE) 03/25/22 04:15 MPV 9.4 fL (7.4-11.0) 03/25/22 04:15 Neut % (Auto) 77.6 % (42.0-75.0) H 03/25/22 04:15 Lymph % (Auto) 16.1 % (21.0-51.0) L 03/25/22 04:15 [place] % (Auto) 6.2 % (0.0-13.0) 03/25/22 04:15 Eos % (Auto) 0.0 % (0.9-2.9) L 03/25/22 04:15 Baso % (Auto) 0.1 % (0.2-1.0) L 03/25/22 04:15 Neut # (Auto) 2.6 x10^3/uL (2.2-4.8) 03/25/22 04:15 Lymph # (Auto) 0.5 X10^3/uL (1.3-2.9) L 03/25/22 04:15 [place] # (Auto) 0.2 x10^3/uL (0.3-0.8) L 03/25/22 04:15 Eos # (Auto) 0.0 x10^3/uL (0.0-0.2) 03/25/22 04:15 Baso # (Auto) 0.0 X10^3/uL (0.0-0.1) 03/25/22 04:15 Absolute Nucleated RBC 0.1 /100WBC 03/25/22 04:15 Plt Morphology Comment Normal (NORMAL) 03/25/22 04:15 RBC Morphology Abnormal (NORMAL) A 03/25/22 04:15 Hypochromasia 1+ A 03/25/22 04:15 Anisocytosis 1+ A 03/25/22 04:15 Sample Site Lr 03/24/22 05:00 ABG pH 7.480 (7.35-7.45) H 03/24/22 05:00 ABG pCO2 56.0 mmHg (35.0-45.0) H* 03/24/22 05:00 ABG pO2 72.0 mmHg (80.0-100.0) L 03/24/22 05:00 ABG HCO3 41.7 mmol/L (22-26) H* 03/24/22 05:00 ABG O2 Saturation 95.0 % (90-100) 03/24/22 05:00 ABG Base Excess 15.6 mmol/L (-2.0-2.0) H 03/24/22 05:00 Nabeel Test Pos 03/24/22 05:00 A-a Gradient 58.0 mmHg 03/24/22 05:00 FiO2 28.0 03/24/22 05:00 Blood Gas Comments João well sw 03/24/22 05:00 Sodium 145 mmol/L (136-145) 03/25/22 04:15 Corrected Sodium 147 mmol/L (136-145) H 03/25/22 04:15 Potassium 3.3 mmol/L (3.5-5.1) L 03/25/22 04:15 Chloride 104 mmol/L (98-107) 03/25/22 04:15 Carbon Dioxide 38.6 mmol/L (21-32) H 03/25/22 04:15 BUN 17 mg/dL (7-18) 03/25/22 04:15 Creatinine 0.58 mg/dL (0.55-1.02) 03/25/22 04:15 Est GFR (MDRD) Af Amer > 60 (>60) 03/25/22 04:15 Est GFR (MDRD) Non-Af > 60 (>60) 03/25/22 04:15 Glucose 175 mg/dL (65-99) H 03/25/22 04:15 Lactic Acid 1.7 mmol/L (0.4-2.0) 03/22/22 15:50 Calcium 7.9 mg/dL (8.5-10.1) L 03/25/22 04:15 Corrected Calcium 9.3 mg/dL (8.5-10.1) 03/25/22 04:15 Total Bilirubin 0.20 mg/dL (0.2-1.0) 03/25/22 04:15 AST 16 Units/L (15-37) 03/25/22 04:15 ALT 10 Units/L (12-78) L 03/25/22 04:15 Alkaline Phosphatase 44 Units/L (46-116) L 03/25/22 04:15 Creatine Kinase 105 Units/L (26-192) 03/24/22 04:00 CK-MB (CK-2) < 1.0 ng/mL (0-4.0) 03/24/22 04:00 CK/CKMB % Calc 1.0 % (<4) 03/24/22 04:00 Troponin I High Sens 41.6 ng/L (4.0-60.0) 03/24/22 04:00 B-Natriuretic Peptide 125 pg/mL (0-79) H 03/22/22 15:50 Total Protein 5.4 g/dL (6.4-8.2) L 03/25/22 04:15 Albumin 2.3 g/dL (3.4-5.0) L 03/25/22 04:15 Globulin 3.1 g/dL (2.5-4.5) 03/25/22 04:15 Albumin/Globulin Ratio 0.7 Ratio (1.1-2.1) L 03/25/22 04:15 SARS-CoV-2 (PCR) Negative (NEGATIVE) 03/22/22 16:10 Influenza Type A (PCR) Negative (NEGATIVE) 03/22/22 16:10 Influenza Type B (PCR) Negative (NEGATIVE) 03/22/22 16:10 RSV (PCR) Negative (NEGATIVE) 03/22/22 16:10 - Plan (1) Spontaneous pneumothorax Status: Acute Plan: Continue with chest tube at this time and repeat chest x-ray in the morning. (2) COPD exacerbation Status: Acute Plan: Jet nebs, IV Solu-Medrol and IV antibiotics. (3) HTN (hypertension) Status: Chronic Qualifiers: Hypertension type: primary hypertension Qualified Code(s): I10 - Essential (primary) hypertension (4) CHF (congestive heart failure) Status: Chronic Qualifiers: Heart failure chronicity: chronic
--- NOTE | 2022-03-25 13:08 | PCM.PROG ---
Progress Note - Progress Note for Day of Date of Exam: 03/25/22 - Subjective Subjective: WAS ADMITTED FOR A SPONTANEOUS RIGHT SIDED PNEUMOTHORAX AND COPD EXACERBATION. INITIAL CHEST XRAY SHOWED A 50% COLLAPSED LUNG. SATURATIONS WERE IN THE 70s. INSERTED A CHEST TUBE. TODAY, SHE IS ALERT AND ORIENTED, LYING IN BED ON MORNING ROUNDS. SHE DENIES CURRENT COMPLA INTS. SHE IS CURRENTLY UTILIZING OXYGEN VIA NASAL CANNULA AT 2 LPM. ON EXAMINATION, HEART IS REGULAR IN RATE AND RHYTHM. BILATERAL LUNGS NOTED WITH DIMINISHED LUNG SOUNDS THROUGHOUT. RIGHT SIDED CHEST TUBE NOTED. HER VITALS THIS MORNING ARE: 97.2-93-24-92%-157/67. LABS WERE OBTAINED. ABNORMAL LAB VALUES INCLUDED THE FOLLOWING: WBC 3.3, RBC 2.80, HGB 7.4, HCT 22.9, POTASSIUM 3.3, CARBON DIOXIDE 38.6, GLUCOSE 175, CALCIUM 7.9, ALT 10, ALK PHOS 44, TOTAL PROTEIN 5.4, ALBUMIN 2.3. BLOOD CULTURES ARE PENDING. A CHEST XRAY WAS OBTAINED AND REVEALED: COPD. Right chest tube unchanged. No pneumothorax. SHE IS CURRENTLY RECEIVING NORMAL SALINE AT 80 ML/HR, LEVAQUIN 500MG IV DAILY, SOLU- MEDROL 80MG IV Q8H, DUONEBS Q4H, PULMICORT NEBS BID, MORPHINE 2-5MG IV Q4H PRN, THE POTASSIUM PROTOCOL, AND HER HOME MEDICATIONS WERE RESUMED. WE WILL CONTINUE WITH CURRENT PLAN OF CARE TODAY. OTHERWISE, WE PLAN TO FOLLOW-UP WITH AM LABS AND CONTINUE TO MONITOR. WILL CONTINUE TO FOLLOW PATIENT WELL. TIME SPENT ON CLINICAL ASSESSMENT, REVIEWING LABS AND IMAGING, DECISION MAKING, AND DOCUMENTATION GREATER THAN 45 MINUTES. - Past Medical Family Social History Past Med/Fam/Surg Hx: No changes since H&P Allergies: Allergies codeine Allergy (Verified 09/24/21 07:06) - Review of Systems ROS: No change since H&P - Vital Signs and I&O's Vital Signs: Temperature 97.2 F Pulse Rate 82 Respiratory Rate 14 Blood Pressure [Right Arm] 105/53 Blood Pressure 138/83 O2 Sat by Pulse Oximetry 100 Intake and Output: Intake & Output 03/23/22 03/24/22 03/25/22 03/26/22 11:59 11:59 11:59 11:59 Intake Total 781 / 781 3009 / 3009 3523 / 3523 Output Total 562 / 562 722 / 722 1348 / 1348 Balance 219 / 219 2287 / 2287 2175 / 2175 - Physical Exam Oriented: Normal Eyes: Normal Ear: Normal Nose: Normal Throat: Normal Respiratory: Right (clear lung , chest tube in place with minimal fluid drainage .. ), Diminished Cardiovascular: Normal : Normal Auscultation: Bowel Sounds: Normal Tenderness: Normal Skin: Normal Musculoskeletal: Back:Thoracic, Back:Lumbar Psychiatric: Normal Mood Description: Calm Affect: Normal Speech Pattern: Clear, Appropriate - Laboratory and Diagnostics Result Diagrams: 03/25/22 04:15 03/25/22 04:15 Labs: 03/22/22 15:50 Blood Blood Culture - Preliminary 03/22/22 16:02 Blood Blood Culture - Preliminary Laboratory WBC 3.3 X10^3/uL (3.6-10.0) L 03/25/22 04:15 RBC 2.80 X10^6/uL (3.5-5.4) L 03/25/22 04:15 Hgb 7.4 g/dL (12.0-16.0) L 03/25/22 04:15 Hct 22.9 % (36.0-47.0) L 03/25/22 04:15 MCV 82.0 fL (80.0-100.0) 03/25/22 04:15 MCH 26.5 pg (27.0-34.0) L 03/25/22 04:15 MCHC 32.3 g/dL (33.0-35.0) L 03/25/22 04:15 RDW 20.4 % (11.6-16.5) H 03/25/22 04:15 Plt Count 169 X10^3/uL (150.0-450.0) 03/25/22 04:15 Plt Count Comment Adequate (ADEQUATE) 03/25/22 04:15 MPV 9.4 fL (7.4-11.0) 03/25/22 04:15 Neut % (Auto) 77.6 % (42.0-75.0) H 03/25/22 04:15 Lymph % (Auto) 16.1 % (21.0-51.0) L 03/25/22 04:15 [place] % (Auto) 6.2 % (0.0-13.0) 03/25/22 04:15 Eos % (Auto) 0.0 % (0.9-2.9) L 03/25/22 04:15 Baso % (Auto) 0.1 % (0.2-1.0) L 03/25/22 04:15 Neut # (Auto) 2.6 x10^3/uL (2.2-4.8) 03/25/22 04:15 Lymph # (Auto) 0.5 X10^3/uL (1.3-2.9) L 03/25/22 04:15 [place] # (Auto) 0.2 x10^3/uL (0.3-0.8) L 03/25/22 04:15 Eos # (Auto) 0.0 x10^3/uL (0.0-0.2) 03/25/22 04:15 Baso # (Auto) 0.0 X10^3/uL (0.0-0.1) 03/25/22 04:15 Absolute Nucleated RBC 0.1 /100WBC 03/25/22 04:15 Plt Morphology Comment Normal (NORMAL) 03/25/22 04:15 RBC Morphology Abnormal (NORMAL) A 03/25/22 04:15 Hypochromasia 1+ A 03/25/22 04:15 Anisocytosis 1+ A 03/25/22 04:15 Sample Site Lr 03/24/22 05:00 ABG pH 7.480 (7.35-7.45) H 03/24/22 05:00 ABG pCO2 56.0 mmHg (35.0-45.0) H* 03/24/22 05:00 ABG pO2 72.0 mmHg (80.0-100.0) L 03/24/22 05:00 ABG HCO3 41.7 mmol/L (22-26) H* 03/24/22 05:00 ABG O2 Saturation 95.0 % (90-100) 03/24/22 05:00 ABG Base Excess 15.6 mmol/L (-2.0-2.0) H 03/24/22 05:00 Nabeel Test Pos 03/24/22 05:00 A-a Gradient 58.0 mmHg 03/24/22 05:00 FiO2 28.0 03/24/22 05:00 Blood Gas Comments João well sw 03/24/22 05:00 Sodium 145 mmol/L (136-145) 03/25/22 04:15 Corrected Sodium 147 mmol/L (136-145) H 03/25/22 04:15 Potassium 3.3 mmol/L (3.5-5.1) L 03/25/22 04:15 Chloride 104 mmol/L (98-107) 03/25/22 04:15 Carbon Dioxide 38.6 mmol/L (21-32) H 03/25/22 04:15 BUN 17 mg/dL (7-18) 03/25/22 04:15 Creatinine 0.58 mg/dL (0.55-1.02) 03/25/22 04:15 Est GFR (MDRD) Af Amer > 60 (>60) 03/25/22 04:15 Est GFR (MDRD) Non-Af > 60 (>60) 03/25/22 04:15 Glucose 175 mg/dL (65-99) H 03/25/22 04:15 Lactic Acid 1.7 mmol/L (0.4-2.0) 03/22/22 15:50 Calcium 7.9 mg/dL (8.5-10.1) L 03/25/22 04:15 Corrected Calcium 9.3 mg/dL (8.5-10.1) 03/25/22 04:15 Total Bilirubin 0.20 mg/dL (0.2-1.0) 03/25/22 04:15 AST 16 Units/L (15-37) 03/25/22 04:15 ALT 10 Units/L (12-78) L 03/25/22 04:15 Alkaline Phosphatase 44 Units/L (46-116) L 03/25/22 04:15 Creatine Kinase 105 Units/L (26-192) 03/24/22 04:00 CK-MB (CK-2) < 1.0 ng/mL (0-4.0) 03/24/22 04:00 CK/CKMB % Calc 1.0 % (<4) 03/24/22 04:00 Troponin I High Sens 41.6 ng/L (4.0-60.0) 03/24/22 04:00 B-Natriuretic Peptide 125 pg/mL (0-79) H 03/22/22 15:50 Total Protein 5.4 g/dL (6.4-8.2) L 03/25/22 04:15 Albumin 2.3 g/dL (3.4-5.0) L 03/25/22 04:15 Globulin 3.1 g/dL (2.5-4.5) 03/25/22 04:15 Albumin/Globulin Ratio 0.7 Ratio (1.1-2.1) L 03/25/22 04:15 SARS-CoV-2 (PCR) Negative (NEGATIVE) 03/22/22 16:10 Influenza Type A (PCR) Negative (NEGATIVE) 03/22/22 16:10 Influenza Type B (PCR) Negative (NEGATIVE) 03/22/22 16:10 RSV (PCR) Negative (NEGATIVE) 03/22/22 16:10 - Plan (1) Spontaneous pneumothorax Status: Acute Plan: Continue with chest tube at this time and repeat chest x-ray in the morning. (2) COPD exacerbation Status: Acute Plan: Jet nebs, IV Solu-Medrol and IV antibiotics. (3) HTN (hypertension) Status: Chronic Qualifiers: Hypertension type: primary hypertension Qualified Code(s): I10 - Essential (primary) hypertension (4) CHF (congestive heart failure) Status: Chronic Qualifiers: Heart failure chronicity: chronic
--- NOTE | 2022-03-25 14:34 | DR.PROGNOT ---
Hospital Progress Notes - Progress Note for Day of: Progress Note Date: 03/25/22 - Chief Complaint Chief Complaint: stable and comfortable .. s/p placement of RT chest tube for spontaneous pneumothorax .. chest X Ray showed no pneumothorax with expanded lung. afebrile and stable VSs. - Past Medical Family Social History Past Med/Fam/Surg Hx: No changes since H&P Allergies: Allergies codeine Allergy (Verified 09/24/21 07:06) - Review Of Systems ROS: No change since H&P - Vital Signs Vital Signs: Temperature 97.2 F Pulse Rate 82 Respiratory Rate 14 Blood Pressure [Right Arm] 105/53 Blood Pressure 138/83 O2 Sat by Pulse Oximetry 100 - Physical Exam Oriented: Normal Eyes: Normal Ear: Normal Nose: Normal Throat: Normal Respiratory: Right (clear lung , chest tube in place with minimal fluid shyam inage .. ), Diminished Cardiovascular: Normal : Normal GI:Auscultation: Normal GI:Palpation: Normal GI: Tenderness: Normal Skin: Normal Musculoskeletal: Back:Thoracic, Back:Lumbar Psychiatric: Normal Mood Description: Calm Affect: Normal Speech Pattern: Clear, Appropriate - Laboratory and Diagnostics Result Diagrams: 03/25/22 04:15 03/25/22 04:15 Labs: 03/22/22 15:50 Blood Blood Culture - Preliminary 03/22/22 16:02 Blood Blood Culture - Preliminary Laboratory WBC 3.3 X10^3/uL (3.6-10.0) L 03/25/22 04:15 RBC 2.80 X10^6/uL (3.5-5.4) L 03/25/22 04:15 Hgb 7.4 g/dL (12.0-16.0) L 03/25/22 04:15 Hct 22.9 % (36.0-47.0) L 03/25/22 04:15 MCV 82.0 fL (80.0-100.0) 03/25/22 04:15 MCH 26.5 pg (27.0-34.0) L 03/25/22 04:15 MCHC 32.3 g/dL (33.0-35.0) L 03/25/22 04:15 RDW 20.4 % (11.6-16.5) H 03/25/22 04:15 Plt Count 169 X10^3/uL (150.0-450.0) 03/25/22 04:15 Plt Count Comment Adequate (ADEQUATE) 03/25/22 04:15 MPV 9.4 fL (7.4-11.0) 03/25/22 04:15 Neut % (Auto) 77.6 % (42.0-75.0) H 03/25/22 04:15 Lymph % (Auto) 16.1 % (21.0-51.0) L 03/25/22 04:15 [place] % (Auto) 6.2 % (0.0-13.0) 03/25/22 04:15 Eos % (Auto) 0.0 % (0.9-2.9) L 03/25/22 04:15 Baso % (Auto) 0.1 % (0.2-1.0) L 03/25/22 04:15 Neut # (Auto) 2.6 x10^3/uL (2.2-4.8) 03/25/22 04:15 Lymph # (Auto) 0.5 X10^3/uL (1.3-2.9) L 03/25/22 04:15 [place] # (Auto) 0.2 x10^3/uL (0.3-0.8) L 03/25/22 04:15 Eos # (Auto) 0.0 x10^3/uL (0.0-0.2) 03/25/22 04:15 Baso # (Auto) 0.0 X10^3/uL (0.0-0.1) 03/25/22 04:15 Absolute Nucleated RBC 0.1 /100WBC 03/25/22 04:15 Plt Morphology Comment Normal (NORMAL) 03/25/22 04:15 RBC Morphology Abnormal (NORMAL) A 03/25/22 04:15 Hypochromasia 1+ A 03/25/22 04:15 Anisocytosis 1+ A 03/25/22 04:15 Sample Site Lr 03/24/22 05:00 ABG pH 7.480 (7.35-7.45) H 03/24/22 05:00 ABG pCO2 56.0 mmHg (35.0-45.0) H* 03/24/22 05:00 ABG pO2 72.0 mmHg (80.0-100.0) L 03/24/22 05:00 ABG HCO3 41.7 mmol/L (22-26) H* 03/24/22 05:00 ABG O2 Saturation 95.0 % (90-100) 03/24/22 05:00 ABG Base Excess 15.6 mmol/L (-2.0-2.0) H 03/24/22 05:00 Nabeel Test Pos 03/24/22 05:00 A-a Gradient 58.0 mmHg 03/24/22 05:00 FiO2 28.0 03/24/22 05:00 Blood Gas Comments João well sw 03/24/22 05:00 Sodium 145 mmol/L (136-145) 03/25/22 04:15 Corrected Sodium 147 mmol/L (136-145) H 03/25/22 04:15 Potassium 3.3 mmol/L (3.5-5.1) L 03/25/22 04:15 Chloride 104 mmol/L (98-107) 03/25/22 04:15 Carbon Dioxide 38.6 mmol/L (21-32) H 03/25/22 04:15 BUN 17 mg/dL (7-18) 03/25/22 04:15 Creatinine 0.58 mg/dL (0.55-1.02) 03/25/22 04:15 Est GFR (MDRD) Af Amer > 60 (>60) 03/25/22 04:15 Est GFR (MDRD) Non-Af > 60 (>60) 03/25/22 04:15 Glucose 175 mg/dL (65-99) H 03/25/22 04:15 Lactic Acid 1.7 mmol/L (0.4-2.0) 03/22/22 15:50 Calcium 7.9 mg/dL (8.5-10.1) L 03/25/22 04:15 Corrected Calcium 9.3 mg/dL (8.5-10.1) 03/25/22 04:15 Total Bilirubin 0.20 mg/dL (0.2-1.0) 03/25/22 04:15 AST 16 Units/L (15-37) 03/25/22 04:15 ALT 10 Units/L (12-78) L 03/25/22 04:15 Alkaline Phosphatase 44 Units/L (46-116) L 03/25/22 04:15 Creatine Kinase 105 Units/L (26-192) 03/24/22 04:00 CK-MB (CK-2) < 1.0 ng/mL (0-4.0) 03/24/22 04:00 CK/CKMB % Calc 1.0 % (<4) 03/24/22 04:00 Troponin I High Sens 41.6 ng/L (4.0-60.0) 03/24/22 04:00 B-Natriuretic Peptide 125 pg/mL (0-79) H 03/22/22 15:50 Total Protein 5.4 g/dL (6.4-8.2) L 03/25/22 04:15 Albumin 2.3 g/dL (3.4-5.0) L 03/25/22 04:15 Globulin 3.1 g/dL (2.5-4.5) 03/25/22 04:15 Albumin/Globulin Ratio 0.7 Ratio (1.1-2.1) L 03/25/22 04:15 SARS-CoV-2 (PCR) Negative (NEGATIVE) 03/22/22 16:10 Influenza Type A (PCR) Negative (NEGATIVE) 03/22/22 16:10 Influenza Type B (PCR) Negative (NEGATIVE) 03/22/22 16:10 RSV (PCR) Negative (NEGATIVE) 03/22/22 16:10 - Assessment and Plan 1: recurrent spontaneous pneuomothorax .. ( had one years ago .. COPD . s/p placement of RT chest tube . same plan . - Problem Patient Problems: Patient Problems HTN (hypertension) (Chronic) I10 CHF (congestive heart failure) (Chronic) I50.9 Spontaneous pneumothorax (Acute) J93.83 COPD exacerbation (Acute) J44.1
[2022-03-25 15:49] LABS: MAGNESIUM 1.8 mg/dL (1.7-2.9)
[2022-03-25] MEDS: MAGNESIUM SULFATE 1 GRAM/100 mL PREMIX 1 G/100 ML BAG IV PRN ×2 (16:52→22:36)
[2022-03-25] MEDS: MAGIC MOUTHWASH (Orig. Formula) MT PRN (17:55)
[2022-03-25] MEDS: ULTRAM PO PRN (21:30)
[2022-03-25] MEDS: LIPITOR TAB 10 MG PO SCH (21:41)
[2022-03-26] MEDS: DUONEB 0.5 MG/3 MG (3 mL) NEB SCH ×7 (00:26→20:41)
[2022-03-26] MEDS: MORPHINE SULFATE INJ 4 MG IVP PRN ×3 (04:35→22:06)
[2022-03-26] MEDS: NS 1,000 ML IV 1,000 ML IV SCH ×3 (04:46→21:07)
[2022-03-26] MEDS: SOLU-Medrol 125 MG VIAL IVP SCH ×3 (05:00→21:08)
[2022-03-26 05:11] LABS: BASOPHILS % (AUTO) 0.1 % (0.2-1.0); HEMATOCRIT 24.9 % (36.0-47.0); HEMOGLOBIN 8.2 g/dL (12.0-16.0); LYMPHOCYTES # (AUTO) 0.6 X10^3/uL (1.3-2.9); LYMPHOCYTES % (AUTO) 11.3 % (21.0-51.0); MEAN CORPUSCULAR HEMOGLOBIN 26.8 pg (27.0-34.0); MEAN CORPUSCULAR HGB CONC 32.9 g/dL (33.0-35.0); MEAN CORPUSCULAR VOLUME 81.5 fL (80.0-100.0); MEAN PLATELET VOLUME 8.9 fL (7.4-11.0); MONOCYTES # (AUTO) 0.3 x10^3/uL (0.3-0.8); NEUTROPHILS # (AUTO) 4.4 x10^3/uL (2.2-4.8); NEUTROPHILS % (AUTO) 82.6 % (42.0-75.0); RED BLOOD COUNT 3.06 X10^6/uL (3.5-5.4); RED CELL DISTRIBUTION WIDTH 20.6 % (11.6-16.5); WHITE BLOOD COUNT 5.4 X10^3/uL (3.6-10.0)
[2022-03-26 05:30] LABS: ALANINE AMINOTRANSFERASE 12 Units/L (12-78); ALBUMIN 2.4 g/dL (3.4-5.0); ALKALINE PHOSPHATASE 48 Units/L (46-116); ASPARTATE AMINO TRANSFERASE 17 Units/L (15-37); BLOOD UREA NITROGEN 14 mg/dL (7-18); CALCIUM 8.1 mg/dL (8.5-10.1); CARBON DIOXIDE 36.9 mmol/L (21-32); CHLORIDE 105 mmol/L (98-107); COR CA(FOR HYPOALB) 9.4 mg/dL (8.5-10.1); COR NA(FOR HYPERGLY) 146 mmol/L (136-145); CREATININE 0.69 mg/dL (0.55-1.02); MAGNESIUM 2.6 mg/dL (1.7-2.9); SODIUM 144 mmol/L (136-145); TOTAL PROTEIN 5.8 g/dL (6.4-8.2); eGFR NON BLACK RACES > 60 (>60)
[2022-03-26 05:33] LABS: ANISOCYTOSIS 1+; HYPOCHROMASIA SLIGHT; PLATELET MORPHOLOGY COMMENT NORMAL (NORMAL)
--- NOTE | 2022-03-26 06:37 | RAD ---
HISTORYFollow-up pneumoniaSTUDYChest AP [id number]/2022FINDINGSPati ent is rotated to the left. Heart size is normal. Aorta is calcified. [place] are normal. There is a right chest tube in place. No definite residual or recurrent pneumothorax is identified. Lungs are hyperinflated. Right lung and left upper lung girard appear free of acute infiltrates. There is increased density in the left lung base when compared to the prior examination. This may represent an early infiltrate. Follow-up of this area is recommended. No definite pleural effusions are identified. Bony thorax is unremarkable.IMPRESSIONIncreasing density in the left lung base suggestive of developing infiltrateRemainder of the lung girard are hyperinflated but clear.No residual or recurrent right pneumothoraxElectronically signed by: MARISSA DICKERSON (Mar 26, 2022 06:37:06)
[2022-03-26] MEDS: PULMICORT NEB TX 0.5 MG NEB SCH ×2 (08:05→20:41)
[2022-03-26] MEDS: MICRO K EXTEN CAP 10 MEQ PO SCH ×2 (09:50→20:45)
[2022-03-26] MEDS: COREG TAB 3.125 MG PO SCH ×2 (09:50→20:43)
[2022-03-26] MEDS: ELIQUIS PO SCH ×2 (09:51→20:43)
[2022-03-26] MEDS: LASIX PO SCH ×2 (09:53→20:44)
[2022-03-26] MEDS: LEVAQUIN PREMIX IV 500 MG 500 MG/100 ML BAG IV SCH (09:53)
[2022-03-26] MEDS: ULTRAM PO PRN ×2 (13:20→21:06)
[2022-03-26] MEDS ORDERED: NORCO 5/325 MG TAB PO PRN (14:45)
--- NOTE | 2022-03-26 16:08 | DR.PROGNOT ---
Hospital Progress Notes - Progress Note for Day of: Progress Note Date: 03/26/22 - Chief Complaint Chief Complaint: stable and comfortable .. s/p placement of RT chest tube for spontaneous pneumothorax .. chest X Ray showed no pneumothorax with expanded lung. afebrile and stable VSs. - Past Medical Family Social History Past Med/Fam/Surg Hx: No changes since H&P Allergies: Allergies codeine Allergy (Verified 09/24/21 07:06) - Review Of Systems ROS: No change since H&P - Vital Signs Vital Signs: Temperature 98.1 F Pulse Rate 83 Respiratory Rate 23 Blood Pressure [Right Arm] 105/53 Blood Pressure 134/78 O2 Sat by Pulse Oximetry 93 - Physical Exam Oriented: Normal Eyes: Normal Ear: Normal Nose: Normal Throat: Normal Respiratory: Right (clear lung , chest tube in place with minimal fluid shyam inage .. ), Diminished Cardiovascular: Normal : Normal GI:Auscultation: Normal GI:Palpation: Normal GI: Tenderness: Normal Skin: Normal Musculoskeletal: Back:Thoracic, Back:Lumbar Psychiatric: Normal Mood Description: Calm Affect: Normal Speech Pattern: Clear, Appropriate - Laboratory and Diagnostics Result Diagrams: 03/26/22 03:45 03/26/22 03:45 Labs: 03/22/22 15:50 Blood Blood Culture - Preliminary 03/22/22 16:02 Blood Blood Culture - Preliminary Laboratory WBC 5.4 X10^3/uL (3.6-10.0) 03/26/22 03:45 RBC 3.06 X10^6/uL (3.5-5.4) L 03/26/22 03:45 Hgb 8.2 g/dL (12.0-16.0) L 03/26/22 03:45 Hct 24.9 % (36.0-47.0) L 03/26/22 03:45 MCV 81.5 fL (80.0-100.0) 03/26/22 03:45 MCH 26.8 pg (27.0-34.0) L 03/26/22 03:45 MCHC 32.9 g/dL (33.0-35.0) L 03/26/22 03:45 RDW 20.6 % (11.6-16.5) H 03/26/22 03:45 Plt Count 208 X10^3/uL (150.0-450.0) 03/26/22 03:45 Plt Count Comment Adequate (ADEQUATE) 03/26/22 03:45 MPV 8.9 fL (7.4-11.0) 03/26/22 03:45 Neut % (Auto) 82.6 % (42.0-75.0) H 03/26/22 03:45 Lymph % (Auto) 11.3 % (21.0-51.0) L 03/26/22 03:45 Robeson % (Auto) 6.0 % (0.0-13.0) 03/26/22 03:45 Eos % (Auto) 0.0 % (0.9-2.9) L 03/26/22 03:45 Baso % (Auto) 0.1 % (0.2-1.0) L 03/26/22 03:45 Neut # (Auto) 4.4 x10^3/uL (2.2-4.8) 03/26/22 03:45 Lymph # (Auto) 0.6 X10^3/uL (1.3-2.9) L 03/26/22 03:45 Robeson # (Auto) 0.3 x10^3/uL (0.3-0.8) 03/26/22 03:45 Eos # (Auto) 0.0 x10^3/uL (0.0-0.2) 03/26/22 03:45 Baso # (Auto) 0.0 X10^3/uL (0.0-0.1) 03/26/22 03:45 Absolute Nucleated RBC 0.1 /100WBC 03/26/22 03:45 Plt Morphology Comment Normal (NORMAL) 03/26/22 03:45 RBC Morphology Abnormal (NORMAL) A 03/26/22 03:45 Hypochromasia Slight A 03/26/22 03:45 Anisocytosis 1+ A 03/26/22 03:45 Sample Site Lr 03/24/22 05:00 ABG pH 7.480 (7.35-7.45) H 03/24/22 05:00 ABG pCO2 56.0 mmHg (35.0-45.0) H* 03/24/22 05:00 ABG pO2 72.0 mmHg (80.0-100.0) L 03/24/22 05:00 ABG HCO3 41.7 mmol/L (22-26) H* 03/24/22 05:00 ABG O2 Saturation 95.0 % (90-100) 03/24/22 05:00 ABG Base Excess 15.6 mmol/L (-2.0-2.0) H 03/24/22 05:00 Nabeel Test Pos 03/24/22 05:00 A-a Gradient 58.0 mmHg 03/24/22 05:00 FiO2 28.0 03/24/22 05:00 Blood Gas Comments João well sw 03/24/22 05:00 Sodium 144 mmol/L (136-145) 03/26/22 03:45 Corrected Sodium 146 mmol/L (136-145) H 03/26/22 03:45 Potassium 3.9 mmol/L (3.5-5.1) 03/26/22 03:45 Chloride 105 mmol/L (98-107) 03/26/22 03:45 Carbon Dioxide 36.9 mmol/L (21-32) H 03/26/22 03:45 BUN 14 mg/dL (7-18) 03/26/22 03:45 Creatinine 0.69 mg/dL (0.55-1.02) 03/26/22 03:45 Est GFR (MDRD) Af Amer > 60 (>60) 03/26/22 03:45 Est GFR (MDRD) Non-Af > 60 (>60) 03/26/22 03:45 Glucose 187 mg/dL (65-99) H 03/26/22 03:45 Lactic Acid 1.7 mmol/L (0.4-2.0) 03/22/22 15:50 Calcium 8.1 mg/dL (8.5-10.1) L 03/26/22 03:45 Corrected Calcium 9.4 mg/dL (8.5-10.1) 03/26/22 03:45 Magnesium 2.6 mg/dL (1.7-2.9) 03/26/22 03:45 Total Bilirubin 0.20 mg/dL (0.2-1.0) 03/26/22 03:45 AST 17 Units/L (15-37) 03/26/22 03:45 ALT 12 Units/L (12-78) 03/26/22 03:45 Alkaline Phosphatase 48 Units/L (46-116) 03/26/22 03:45 Creatine Kinase 105 Units/L (26-192) 03/24/22 04:00 CK-MB (CK-2) < 1.0 ng/mL (0-4.0) 03/24/22 04:00 CK/CKMB % Calc 1.0 % (<4) 03/24/22 04:00 Troponin I High Sens 41.6 ng/L (4.0-60.0) 03/24/22 04:00 B-Natriuretic Peptide 433 pg/mL (0-79) H 03/26/22 03:45 Total Protein 5.8 g/dL (6.4-8.2) L 03/26/22 03:45 Albumin 2.4 g/dL (3.4-5.0) L 03/26/22 03:45 Globulin 3.4 g/dL (2.5-4.5) 03/26/22 03:45 Albumin/Globulin Ratio 0.7 Ratio (1.1-2.1) L 03/26/22 03:45 SARS-CoV-2 (PCR) Negative (NEGATIVE) 03/22/22 16:10 Influenza Type A (PCR) Negative (NEGATIVE) 03/22/22 16:10 Influenza Type B (PCR) Negative (NEGATIVE) 03/22/22 16:10 RSV (PCR) Negative (NEGATIVE) 03/22/22 16:10 - Assessment and Plan 1: recurrent spontaneous pneuomothorax .. s/p placement of RT chest tube . to clamp chest tube in am .. - Problem Patient Problems: Patient Problems HTN (hypertension) (Chronic) I10 CHF (congestive heart failure) (Chronic) I50.9 Spontaneous pneumothorax (Acute) J93.83 COPD exacerbation (Acute) J44.1
[2022-03-26] MEDS: LIPITOR TAB 10 MG PO SCH (20:44)
[2022-03-27] MEDS: DUONEB 0.5 MG/3 MG (3 mL) NEB SCH ×6 (00:34→21:20)
[2022-03-27] MEDS: ULTRAM PO PRN ×3 (04:15→14:48)
[2022-03-27 05:04] LABS: BASOPHILS % (AUTO) 0.1 % (0.2-1.0); HEMATOCRIT 24.5 % (36.0-47.0); HEMOGLOBIN 7.9 g/dL (12.0-16.0); LYMPHOCYTES # (AUTO) 0.6 X10^3/uL (1.3-2.9); LYMPHOCYTES % (AUTO) 10.8 % (21.0-51.0); MEAN CORPUSCULAR HEMOGLOBIN 26.1 pg (27.0-34.0); MEAN CORPUSCULAR HGB CONC 32.1 g/dL (33.0-35.0); MEAN CORPUSCULAR VOLUME 81.4 fL (80.0-100.0); MEAN PLATELET VOLUME 9.1 fL (7.4-11.0); MONOCYTES # (AUTO) 0.7 x10^3/uL (0.3-0.8); MONOCYTES % (AUTO) 12.4 % (0.0-13.0); NEUTROPHILS # (AUTO) 4.3 x10^3/uL (2.2-4.8); NEUTROPHILS % (AUTO) 76.7 % (42.0-75.0); RED BLOOD COUNT 3.01 X10^6/uL (3.5-5.4); RED CELL DISTRIBUTION WIDTH 21.1 % (11.6-16.5); WHITE BLOOD COUNT 5.6 X10^3/uL (3.6-10.0)
[2022-03-27] MEDS: NS 1,000 ML IV 1,000 ML IV SCH ×3 (05:11→17:45)
[2022-03-27] MEDS: SOLU-Medrol 125 MG VIAL IVP SCH (05:12)
[2022-03-27 05:16] LABS: ALANINE AMINOTRANSFERASE 15 Units/L (12-78); ALBUMIN 2.3 g/dL (3.4-5.0); ALKALINE PHOSPHATASE 45 Units/L (46-116); ASPARTATE AMINO TRANSFERASE 15 Units/L (15-37); BLOOD UREA NITROGEN 16 mg/dL (7-18); CARBON DIOXIDE 36.7 mmol/L (21-32); CHLORIDE 104 mmol/L (98-107); COR CA(FOR HYPOALB) 9.4 mg/dL (8.5-10.1); COR NA(FOR HYPERGLY) 144 mmol/L (136-145); SODIUM 143 mmol/L (136-145); TOTAL PROTEIN 5.4 g/dL (6.4-8.2); eGFR NON BLACK RACES > 60 (>60)
[2022-03-27 05:28] LABS: ANISOCYTOSIS 1+; HYPOCHROMASIA SLIGHT; PLATELET MORPHOLOGY COMMENT NORMAL (NORMAL)
--- NOTE | 2022-03-27 06:17 | RAD ---
HISTORYShortness of breath, follow-up pneumothoraxSTUDYChest AP [id number]/27/2022FINDINGSHear t size is normal. Ladonna are normal. Aorta is calcified. There is a right chest tube in place. No definite residual or recurrent pneumothorax is identified. Lungs are hyperinflated. Right lung and left upper lung girard are clear. Once again noted is a small left lower lobe infiltrate present and unchanged. There is now small left pleural effusion present. No pneumothorax identified. Bony thorax is unremarkable.IMPRESSIONSmall left lower lobe infiltrate unchangedNew small left pleural effusionNo definite significant recurrent right pneumothoraxElectronically signed by: MARISSA DICKERSON (Mar 27, 2022 06:17:06)
[2022-03-27] MEDS: PULMICORT NEB TX 0.5 MG NEB SCH ×2 (08:05→21:20)
--- NOTE | 2022-03-27 09:09 | DR.PROGNOT ---
Hospital Progress Notes - Progress Note for Day of: Progress Note Date: 03/27/22 - Chief Complaint Chief Complaint: stable and comfortable .. s/p placement of RT chest tube for spontaneous pneumothorax .. chest X Ray showed no pneumothorax with expanded lung. chest tube was clamped . - Past Medical Family Social History Past Med/Fam/Surg Hx: No changes since H&P Allergies: Allergies codeine Allergy (Verified 09/24/21 07:06) - Review Of Systems ROS: No change since H&P - Vital Signs Vital Signs: Temperature 97.8 F Pulse Rate 79 Respiratory Rate 10 Blood Pressure [Right Arm] 105/53 Blood Pressure 152/68 O2 Sat by Pulse Oximetry 97 - Physical Exam Oriented: Normal Eyes: Normal Ear: Normal Nose: Normal Throat: Normal Respiratory: Right (clear lung , chest tube in place with minimal fluid drai nage .. ), Diminished Cardiovascular: Normal : Normal GI:Auscultation: Normal GI:Palpation: Normal GI: Tenderness: Normal Skin: Normal Musculoskeletal: Back:Thoracic, Back:Lumbar Psychiatric: Normal Mood Description: Calm Affect: Normal Speech Pattern: Clear, Appropriate - Laboratory and Diagnostics Result Diagrams: 03/27/22 03:53 03/27/22 03:53 Labs: 03/22/22 15:50 Blood Blood Culture - Preliminary 03/22/22 16:02 Blood Blood Culture - Preliminary Laboratory WBC 5.6 X10^3/uL (3.6-10.0) 03/27/22 03:53 RBC 3.01 X10^6/uL (3.5-5.4) L 03/27/22 03:53 Hgb 7.9 g/dL (12.0-16.0) L 03/27/22 03:53 Hct 24.5 % (36.0-47.0) L 03/27/22 03:53 MCV 81.4 fL (80.0-100.0) 03/27/22 03:53 MCH 26.1 pg (27.0-34.0) L 03/27/22 03:53 MCHC 32.1 g/dL (33.0-35.0) L 03/27/22 03:53 RDW 21.1 % (11.6-16.5) H 03/27/22 03:53 Plt Count 239 X10^3/uL (150.0-450.0) 03/27/22 03:53 Plt Count Comment Adequate (ADEQUATE) 03/27/22 03:53 MPV 9.1 fL (7.4-11.0) 03/27/22 03:53 Neut % (Auto) 76.7 % (42.0-75.0) H 03/27/22 03:53 Lymph % (Auto) 10.8 % (21.0-51.0) L 03/27/22 03:53 [place] % (Auto) 12.4 % (0.0-13.0) 03/27/22 03:53 Eos % (Auto) 0.0 % (0.9-2.9) L 03/27/22 03:53 Baso % (Auto) 0.1 % (0.2-1.0) L 03/27/22 03:53 Neut # (Auto) 4.3 x10^3/uL (2.2-4.8) 03/27/22 03:53 Lymph # (Auto) 0.6 X10^3/uL (1.3-2.9) L 03/27/22 03:53 [place] # (Auto) 0.7 x10^3/uL (0.3-0.8) 03/27/22 03:53 Eos # (Auto) 0.0 x10^3/uL (0.0-0.2) 03/27/22 03:53 Baso # (Auto) 0.0 X10^3/uL (0.0-0.1) 03/27/22 03:53 Absolute Nucleated RBC 0.3 /100WBC 03/27/22 03:53 Plt Morphology Comment Normal (NORMAL) 03/27/22 03:53 RBC Morphology Abnormal (NORMAL) A 03/27/22 03:53 Hypochromasia Slight A 03/27/22 03:53 Anisocytosis 1+ A 03/27/22 03:53 Sample Site Lr 03/24/22 05:00 ABG pH 7.480 (7.35-7.45) H 03/24/22 05:00 ABG pCO2 56.0 mmHg (35.0-45.0) H* 03/24/22 05:00 ABG pO2 72.0 mmHg (80.0-100.0) L 03/24/22 05:00 ABG HCO3 41.7 mmol/L (22-26) H* 03/24/22 05:00 ABG O2 Saturation 95.0 % (90-100) 03/24/22 05:00 ABG Base Excess 15.6 mmol/L (-2.0-2.0) H 03/24/22 05:00 Nabeel Test Pos 03/24/22 05:00 A-a Gradient 58.0 mmHg 03/24/22 05:00 FiO2 28.0 03/24/22 05:00 Blood Gas Comments João well sw 03/24/22 05:00 Sodium 143 mmol/L (136-145) 03/27/22 03:53 Corrected Sodium 144 mmol/L (136-145) 03/27/22 03:53 Potassium 3.6 mmol/L (3.5-5.1) 03/27/22 03:53 Chloride 104 mmol/L (98-107) 03/27/22 03:53 Carbon Dioxide 36.7 mmol/L (21-32) H 03/27/22 03:53 BUN 16 mg/dL (7-18) 03/27/22 03:53 Creatinine 0.60 mg/dL (0.55-1.02) 03/27/22 03:53 Est GFR (MDRD) Af Amer > 60 (>60) 03/27/22 03:53 Est GFR (MDRD) Non-Af > 60 (>60) 03/27/22 03:53 Glucose 150 mg/dL (65-99) H 03/27/22 03:53 Lactic Acid 1.7 mmol/L (0.4-2.0) 03/22/22 15:50 Calcium 8.0 mg/dL (8.5-10.1) L 03/27/22 03:53 Corrected Calcium 9.4 mg/dL (8.5-10.1) 03/27/22 03:53 Magnesium 2.6 mg/dL (1.7-2.9) 03/26/22 03:45 Total Bilirubin 0.30 mg/dL (0.2-1.0) 03/27/22 03:53 AST 15 Units/L (15-37) 03/27/22 03:53 ALT 15 Units/L (12-78) 03/27/22 03:53 Alkaline Phosphatase 45 Units/L (46-116) L 03/27/22 03:53 Creatine Kinase 105 Units/L (26-192) 03/24/22 04:00 CK-MB (CK-2) < 1.0 ng/mL (0-4.0) 03/24/22 04:00 CK/CKMB % Calc 1.0 % (<4) 03/24/22 04:00 Troponin I High Sens 41.6 ng/L (4.0-60.0) 03/24/22 04:00 B-Natriuretic Peptide 433 pg/mL (0-79) H 03/26/22 03:45 Total Protein 5.4 g/dL (6.4-8.2) L 03/27/22 03:53 Albumin 2.3 g/dL (3.4-5.0) L 03/27/22 03:53 Globulin 3.1 g/dL (2.5-4.5) 03/27/22 03:53 Albumin/Globulin Ratio 0.7 Ratio (1.1-2.1) L 03/27/22 03:53 SARS-CoV-2 (PCR) Negative (NEGATIVE) 03/22/22 16:10 Influenza Type A (PCR) Negative (NEGATIVE) 03/22/22 16:10 Influenza Type B (PCR) Negative (NEGATIVE) 03/22/22 16:10 RSV (PCR) Negative (NEGATIVE) 03/22/22 16:10 - Assessment and Plan 1: recurrent spontaneous pneuomothorax .. s/p placement of RT chest tube . to clamp chest tube this am and repeat chest xray at noon ... - Problem Patient Problems: Patient Problems HTN (hypertension) (Chronic) I10 CHF (congestive heart failure) (Chronic) I50.9 Spontaneous pneumothorax (Acute) J93.83 COPD exacerbation (Acute) J44.1
[2022-03-27] MEDS: ELIQUIS PO SCH ×2 (09:24→20:18)
[2022-03-27] MEDS: LEVAQUIN PREMIX IV 500 MG 500 MG/100 ML BAG IV SCH (09:25)
[2022-03-27] MEDS: COREG TAB 3.125 MG PO SCH ×2 (09:25→20:17)
[2022-03-27] MEDS: MICRO K EXTEN CAP 10 MEQ PO SCH ×2 (09:25→20:18)
[2022-03-27] MEDS: LASIX PO SCH ×2 (09:26→20:18)
--- NOTE | 2022-03-27 12:56 | RAD ---
HISTORYChest tube placementSTUDYAP chestCOMPARISON4:44 a.m. 03/27/2022FINDINGSSimilar appearance of right chest tube without significant pneumothorax. Persistent small left pleural effusion with infiltrate. Increasing airspace involvement in the medial right lower lobe. Heart size remains normal.IMPRESSIONNo interval change except for apparent increasing airspace involvement in the right lower lung which may reflect pneumonia/atelectasis. Stable appearance of infiltrate and pleural fluid at the left base. Continued follow-up suggested.Electronically signed by: JACKIE REED (Mar 27, 2022 12:55:54)
--- NOTE | 2022-03-27 13:26 | PCM.PROG ---
Progress Note - Progress Note for Day of Date of Exam: 03/26/22 - Subjective Subjective: WAS ADMITTED FOR A SPONTANEOUS RIGHT SIDED PNEUMOTHORAX AND COPD EXACERBATION. INITIAL CHEST XRAY SHOWED A 50% COLLAPSED LUNG. SATURATIONS WERE IN THE 70s. INSERTED A CHEST TUBE. TODAY, SHE IS ALERT AND ORIENTED, LYING IN BED ON MORNING ROUNDS. SHE REPORTS SLIGHT INCREASE IN SHORTNESS OF BREATH TODAY. SHE IS CURRENTLY UTILIZING OXYGEN VIA NASAL CANNULA AT 2 LPM. ON EXAMINATION, HEART IS REGULAR IN RATE AND RHYTHM. BILATERAL LUNGS NOTED WITH DIMINISHED LUNG SOUNDS THROUGHOUT. RIGHT SIDED CHEST TUBE NOTED. HER VITALS THIS MORNING ARE: 97.7-70-18-92%-138/62. LABS WERE OBTAINED. ABNORMAL LAB VALUES INCLUDED THE FOLLOWING: RBC 3.06, HGB 8.2, HCT 24.9, CORRECTED SODIUM 146, CARBON DIOXIDE 36.9, GLUCOSE 187, CALCIUM 8.1, BNP 433, TOTAL PROTEIN 5.8, ALBUMIN 2.4. BLOOD CULTURES ARE PENDING. A CHEST XRAY WAS OBTAINED AND REVEALED: Increasing density in the left lung base suggestive of developing infiltrate. Remainder of the lung girard are hyperinflated but clear. No residual or recurrent right pneumothorax. SHE IS CURRENTLY RECEIVING NORMAL SALINE AT 80 ML/HR, LEVAQUIN 500MG IV DAILY, SOLU-MEDROL 80MG IV Q8H, DUONEBS Q4H, PULMICORT NEBS BID, MORPHINE 2-5MG IV Q4H PRN, THE POTASSIUM PROTOCOL, AND HER HOME MEDICATIONS WERE RESUMED. WE WILL CONTINUE WITH CURRENT PLAN OF CARE TODAY. OTHERWISE, WE PLAN TO FOLLOW-UP WITH AM LABS AND CONTINUE TO MONITOR. WILL CONTINUE TO FOLLOW PATIENT WELL. TIME SPENT ON CLINICAL ASSESSMENT, REVIEWING LABS AND IMAGING, DECISION MAKING, AND DOCUMENTATION GREATER THAN 45 MINUTES. - Past Medical Family Social History Past Med/Fam/Surg Hx: No changes since H&P Allergies: Allergies codeine Allergy (Verified 09/24/21 07:06) - Review of Systems ROS: No change since H&P - Vital Signs and I&O's Vital Signs: Temperature 98.1 F Pulse Rate 85 Respiratory Rate 18 Blood Pressure [Right Arm] 105/53 Blood Pressure 159/65 O2 Sat by Pulse Oximetry 93 Intake and Output: Intake & Output 03/25/22 03/26/22 03/27/22 03/28/22 11:59 11:59 11:59 11:59 Intake Total 3523 / 3523 2529 / 2529 1445 / 1445 Output Total 1348 / 1348 1518 / 1518 1352 / 1352 Balance 2175 / 2175 1011 / 1011 / 93 - Physical Exam Oriented: Normal Eyes: Normal Ear: Normal Nose: Normal Throat: Normal Respiratory: Right (clear lung , chest tube in place with minimal fluid drainage .. ), Diminished Cardiovascular: Normal : Normal Auscultation: Bowel Sounds: Normal Tenderness: Normal Skin: Normal Musculoskeletal: Back:Thoracic, Back:Lumbar Psychiatric: Normal Mood Description: Calm Affect: Normal Speech Pattern: Clear, Appropriate - Laboratory and Diagnostics Result Diagrams: 03/27/22 03:53 03/27/22 03:53 Labs: 03/22/22 15:50 Blood Blood Culture - Preliminary 03/22/22 16:02 Blood Blood Culture - Preliminary Laboratory WBC 5.6 X10^3/uL (3.6-10.0) 03/27/22 03:53 RBC 3.01 X10^6/uL (3.5-5.4) L 03/27/22 03:53 Hgb 7.9 g/dL (12.0-16.0) L 03/27/22 03:53 Hct 24.5 % (36.0-47.0) L 03/27/22 03:53 MCV 81.4 fL (80.0-100.0) 03/27/22 03:53 MCH 26.1 pg (27.0-34.0) L 03/27/22 03:53 MCHC 32.1 g/dL (33.0-35.0) L 03/27/22 03:53 RDW 21.1 % (11.6-16.5) H 03/27/22 03:53 Plt Count 239 X10^3/uL (150.0-450.0) 03/27/22 03:53 Plt Count Comment Adequate (ADEQUATE) 03/27/22 03:53 MPV 9.1 fL (7.4-11.0) 03/27/22 03:53 Neut % (Auto) 76.7 % (42.0-75.0) H 03/27/22 03:53 Lymph % (Auto) 10.8 % (21.0-51.0) L 03/27/22 03:53 [place] % (Auto) 12.4 % (0.0-13.0) 03/27/22 03:53 Eos % (Auto) 0.0 % (0.9-2.9) L 03/27/22 03:53 Baso % (Auto) 0.1 % (0.2-1.0) L 03/27/22 03:53 Neut # (Auto) 4.3 x10^3/uL (2.2-4.8) 03/27/22 03:53 Lymph # (Auto) 0.6 X10^3/uL (1.3-2.9) L 03/27/22 03:53 [place] # (Auto) 0.7 x10^3/uL (0.3-0.8) 03/27/22 03:53 Eos # (Auto) 0.0 x10^3/uL (0.0-0.2) 03/27/22 03:53 Baso # (Auto) 0.0 X10^3/uL (0.0-0.1) 03/27/22 03:53 Absolute Nucleated RBC 0.3 /100WBC 03/27/22 03:53 Plt Morphology Comment Normal (NORMAL) 03/27/22 03:53 RBC Morphology Abnormal (NORMAL) A 03/27/22 03:53 Hypochromasia Slight A 03/27/22 03:53 Anisocytosis 1+ A 03/27/22 03:53 Sample Site Lr 03/24/22 05:00 ABG pH 7.480 (7.35-7.45) H 03/24/22 05:00 ABG pCO2 56.0 mmHg (35.0-45.0) H* 03/24/22 05:00 ABG pO2 72.0 mmHg (80.0-100.0) L 03/24/22 05:00 ABG HCO3 41.7 mmol/L (22-26) H* 03/24/22 05:00 ABG O2 Saturation 95.0 % (90-100) 03/24/22 05:00 ABG Base Excess 15.6 mmol/L (-2.0-2.0) H 03/24/22 05:00 Nabeel Test Pos 03/24/22 05:00 A-a Gradient 58.0 mmHg 03/24/22 05:00 FiO2 28.0 03/24/22 05:00 Blood Gas Comments João well sw 03/24/22 05:00 Sodium 143 mmol/L (136-145) 03/27/22 03:53 Corrected Sodium 144 mmol/L (136-145) 03/27/22 03:53 Potassium 3.6 mmol/L (3.5-5.1) 03/27/22 03:53 Chloride 104 mmol/L (98-107) 03/27/22 03:53 Carbon Dioxide 36.7 mmol/L (21-32) H 03/27/22 03:53 BUN 16 mg/dL (7-18) 03/27/22 03:53 Creatinine 0.60 mg/dL (0.55-1.02) 03/27/22 03:53 Est GFR (MDRD) Af Amer > 60 (>60) 03/27/22 03:53 Est GFR (MDRD) Non-Af > 60 (>60) 03/27/22 03:53 Glucose 150 mg/dL (65-99) H 03/27/22 03:53 Lactic Acid 1.7 mmol/L (0.4-2.0) 03/22/22 15:50 Calcium 8.0 mg/dL (8.5-10.1) L 03/27/22 03:53 Corrected Calcium 9.4 mg/dL (8.5-10.1) 03/27/22 03:53 Magnesium 2.6 mg/dL (1.7-2.9) 03/26/22 03:45 Total Bilirubin 0.30 mg/dL (0.2-1.0) 03/27/22 03:53 AST 15 Units/L (15-37) 03/27/22 03:53 ALT 15 Units/L (12-78) 03/27/22 03:53 Alkaline Phosphatase 45 Units/L (46-116) L 03/27/22 03:53 Creatine Kinase 105 Units/L (26-192) 03/24/22 04:00 CK-MB (CK-2) < 1.0 ng/mL (0-4.0) 03/24/22 04:00 CK/CKMB % Calc 1.0 % (<4) 03/24/22 04:00 Troponin I High Sens 41.6 ng/L (4.0-60.0) 03/24/22 04:00 B-Natriuretic Peptide 433 pg/mL (0-79) H 03/26/22 03:45 Total Protein 5.4 g/dL (6.4-8.2) L 03/27/22 03:53 Albumin 2.3 g/dL (3.4-5.0) L 03/27/22 03:53 Globulin 3.1 g/dL (2.5-4.5) 03/27/22 03:53 Albumin/Globulin Ratio 0.7 Ratio (1.1-2.1) L 03/27/22 03:53 SARS-CoV-2 (PCR) Negative (NEGATIVE) 03/22/22 16:10 Influenza Type A (PCR) Negative (NEGATIVE) 03/22/22 16:10 Influenza Type B (PCR) Negative (NEGATIVE) 03/22/22 16:10 RSV (PCR) Negative (NEGATIVE) 03/22/22 16:10 - Plan (1) Spontaneous pneumothorax Status: Acute Plan: Continue with chest tube at this time and repeat chest x-ray in the morning. (2) COPD exacerbation Status: Acute Plan: Jet nebs, IV Solu-Medrol and IV antibiotics. (3) HTN (hypertension) Status: Chronic Qualifiers: Hypertension type: primary hypertension Qualified Code(s): I10 - Essential (primary) hypertension (4) CHF (congestive heart failure) Status: Chronic Qualifiers: Heart failure chronicity: chronic
[2022-03-27] MEDS: SOLU-Medrol 40 MG VIAL IVP SCH ×2 (14:48→21:12)
--- NOTE | 2022-03-27 15:00 | RAD ---
HISTORYStatus post chest tube removalSTUDYChest AP [id number] April 2022 11:49 a.m.FINDINGSHeart size is normal. Ladonna are normal. Right lung and left upper lung girard are now clear. The subtle increased density in the right base on the prior examination is no longer identified. Small left lower lobe infiltrate and small left pleural effusion are unchanged. The right chest tube has been removed. No recurrent pneumothorax is identified. Bony thorax is unremarkable.IMPRESSIONNo recurrent right pneumothorax status post removal of right chest tubeNo change small left basilar lung infiltrate and small left pleural effusionRight lung base now clearElectronically signed by: MARISSA DICKERSON (Mar 27, 2022 15:00:21)
--- NOTE | 2022-03-27 15:06 | DR.PROGNOT ---
Hospital Progress Notes - Progress Note for Day of: Progress Note Date: 03/27/22 - Chief Complaint Chief Complaint: stable and comfortable .. no pneumothorax after clamping the tube .. it was removed with good expanded lung on X Ray .. - Past Medical Family Social History Past Med/Fam/Surg Hx: No changes since H&P Allergies: Allergies codeine Allergy (Verified 09/24/21 07:06) - Review Of Systems ROS: No change since H&P - Vital Signs Vital Signs: Temperature 98.1 F Pulse Rate 85 Respiratory Rate 23 Blood Pressure [Right Arm] 105/53 Blood Pressure 159/65 O2 Sat by Pulse Oximetry 93 - Physical Exam Oriented: Normal Eyes: Normal Ear: Normal Nose: Normal Throat: Normal Respiratory: Right (clear lung , chest tube in place with minimal fluid drainage .. ), Diminished Cardiovascular: Normal : Normal GI:Auscultation: Normal GI:Palpation: Normal GI: Tenderness: Normal Skin: Normal Musculoskeletal: Back:Thoracic, Back:Lumbar Psychiatric: Normal Mood Description: Calm Affect: Normal Speech Pattern: Clear, Appropriate - Laboratory and Diagnostics Result Diagrams: 03/27/22 03:53 03/27/22 03:53 Labs: 03/22/22 15:50 Blood Blood Culture - Preliminary 03/22/22 16:02 Blood Blood Culture - Preliminary Laboratory WBC 5.6 X10^3/uL (3.6-10.0) 03/27/22 03:53 RBC 3.01 X10^6/uL (3.5-5.4) L 03/27/22 03:53 Hgb 7.9 g/dL (12.0-16.0) L 03/27/22 03:53 Hct 24.5 % (36.0-47.0) L 03/27/22 03:53 MCV 81.4 fL (80.0-100.0) 03/27/22 03:53 MCH 26.1 pg (27.0-34.0) L 03/27/22 03:53 MCHC 32.1 g/dL (33.0-35.0) L 03/27/22 03:53 RDW 21.1 % (11.6-16.5) H 03/27/22 03:53 Plt Count 239 X10^3/uL (150.0-450.0) 03/27/22 03:53 Plt Count Comment Adequate (ADEQUATE) 03/27/22 03:53 MPV 9.1 fL (7.4-11.0) 03/27/22 03:53 Neut % (Auto) 76.7 % (42.0-75.0) H 03/27/22 03:53 Lymph % (Auto) 10.8 % (21.0-51.0) L 03/27/22 03:53 [place] % (Auto) 12.4 % (0.0-13.0) 03/27/22 03:53 Eos % (Auto) 0.0 % (0.9-2.9) L 03/27/22 03:53 Baso % (Auto) 0.1 % (0.2-1.0) L 03/27/22 03:53 Neut # (Auto) 4.3 x10^3/uL (2.2-4.8) 03/27/22 03:53 Lymph # (Auto) 0.6 X10^3/uL (1.3-2.9) L 03/27/22 03:53 [place] # (Auto) 0.7 x10^3/uL (0.3-0.8) 03/27/22 03:53 Eos # (Auto) 0.0 x10^3/uL (0.0-0.2) 03/27/22 03:53 Baso # (Auto) 0.0 X10^3/uL (0.0-0.1) 03/27/22 03:53 Absolute Nucleated RBC 0.3 /100WBC 03/27/22 03:53 Plt Morphology Comment Normal (NORMAL) 03/27/22 03:53 RBC Morphology Abnormal (NORMAL) A 03/27/22 03:53 Hypochromasia Slight A 03/27/22 03:53 Anisocytosis 1+ A 03/27/22 03:53 Sample Site Lr 03/24/22 05:00 ABG pH 7.480 (7.35-7.45) H 03/24/22 05:00 ABG pCO2 56.0 mmHg (35.0-45.0) H* 03/24/22 05:00 ABG pO2 72.0 mmHg (80.0-100.0) L 03/24/22 05:00 ABG HCO3 41.7 mmol/L (22-26) H* 03/24/22 05:00 ABG O2 Saturation 95.0 % (90-100) 03/24/22 05:00 ABG Base Excess 15.6 mmol/L (-2.0-2.0) H 03/24/22 05:00 Nabeel Test Pos 03/24/22 05:00 A-a Gradient 58.0 mmHg 03/24/22 05:00 FiO2 28.0 03/24/22 05:00 Blood Gas Comments João well sw 03/24/22 05:00 Sodium 143 mmol/L (136-145) 03/27/22 03:53 Corrected Sodium 144 mmol/L (136-145) 03/27/22 03:53 Potassium 3.6 mmol/L (3.5-5.1) 03/27/22 03:53 Chloride 104 mmol/L (98-107) 03/27/22 03:53 Carbon Dioxide 36.7 mmol/L (21-32) H 03/27/22 03:53 BUN 16 mg/dL (7-18) 03/27/22 03:53 Creatinine 0.60 mg/dL (0.55-1.02) 03/27/22 03:53 Est GFR (MDRD) Af Amer > 60 (>60) 03/27/22 03:53 Est GFR (MDRD) Non-Af > 60 (>60) 03/27/22 03:53 Glucose 150 mg/dL (65-99) H 03/27/22 03:53 Lactic Acid 1.7 mmol/L (0.4-2.0) 03/22/22 15:50 Calcium 8.0 mg/dL (8.5-10.1) L 03/27/22 03:53 Corrected Calcium 9.4 mg/dL (8.5-10.1) 03/27/22 03:53 Magnesium 2.6 mg/dL (1.7-2.9) 03/26/22 03:45 Total Bilirubin 0.30 mg/dL (0.2-1.0) 03/27/22 03:53 AST 15 Units/L (15-37) 03/27/22 03:53 ALT 15 Units/L (12-78) 03/27/22 03:53 Alkaline Phosphatase 45 Units/L (46-116) L 03/27/22 03:53 Creatine Kinase 105 Units/L (26-192) 03/24/22 04:00 CK-MB (CK-2) < 1.0 ng/mL (0-4.0) 03/24/22 04:00 CK/CKMB % Calc 1.0 % (<4) 03/24/22 04:00 Troponin I High Sens 41.6 ng/L (4.0-60.0) 03/24/22 04:00 B-Natriuretic Peptide 433 pg/mL (0-79) H 03/26/22 03:45 Total Protein 5.4 g/dL (6.4-8.2) L 03/27/22 03:53 Albumin 2.3 g/dL (3.4-5.0) L 03/27/22 03:53 Globulin 3.1 g/dL (2.5-4.5) 03/27/22 03:53 Albumin/Globulin Ratio 0.7 Ratio (1.1-2.1) L 03/27/22 03:53 SARS-CoV-2 (PCR) Negative (NEGATIVE) 03/22/22 16:10 Influenza Type A (PCR) Negative (NEGATIVE) 03/22/22 16:10 Influenza Type B (PCR) Negative (NEGATIVE) 03/22/22 16:10 RSV (PCR) Negative (NEGATIVE) 03/22/22 16:10 - Assessment and Plan 1: recurrent spontaneous pneuomothorax .. lung is clear after removing C- T . to observe today and could be D/C in am .. - Problem Patient Problems: Patient Problems HTN (hypertension) (Chronic) I10 CHF (congestive heart failure) (Chronic) I50.9 Spontaneous pneumothorax (Acute) J93.83 COPD exacerbation (Acute) J44.1
[2022-03-27] MEDS: LIPITOR TAB 10 MG PO SCH (20:18)
[2022-03-27] MEDS: XANAX PO PRN (20:19)
[2022-03-28] MEDS: DUONEB 0.5 MG/3 MG (3 mL) NEB SCH ×6 (00:05→21:33)
[2022-03-28 05:03] LABS: BASOPHILS % (AUTO) 0.1 % (0.2-1.0); HEMATOCRIT 24.6 % (36.0-47.0); LYMPHOCYTES # (AUTO) 0.7 X10^3/uL (1.3-2.9); LYMPHOCYTES % (AUTO) 13.5 % (21.0-51.0); MEAN CORPUSCULAR HEMOGLOBIN 26.3 pg (27.0-34.0); MEAN CORPUSCULAR HGB CONC 32.4 g/dL (33.0-35.0); MEAN CORPUSCULAR VOLUME 81.2 fL (80.0-100.0); MEAN PLATELET VOLUME 8.6 fL (7.4-11.0); MONOCYTES # (AUTO) 0.5 x10^3/uL (0.3-0.8); MONOCYTES % (AUTO) 9.9 % (0.0-13.0); NEUTROPHILS # (AUTO) 4.2 x10^3/uL (2.2-4.8); NEUTROPHILS % (AUTO) 76.5 % (42.0-75.0); RED BLOOD COUNT 3.03 X10^6/uL (3.5-5.4); RED CELL DISTRIBUTION WIDTH 20.8 % (11.6-16.5); WHITE BLOOD COUNT 5.5 X10^3/uL (3.6-10.0)
[2022-03-28 05:16] LABS: ALANINE AMINOTRANSFERASE 14 Units/L (12-78); ALBUMIN 2.2 g/dL (3.4-5.0); ALKALINE PHOSPHATASE 45 Units/L (46-116); ASPARTATE AMINO TRANSFERASE 18 Units/L (15-37); BLOOD UREA NITROGEN 16 mg/dL (7-18); CALCIUM 7.7 mg/dL (8.5-10.1); CARBON DIOXIDE 37.4 mmol/L (21-32); CHLORIDE 102 mmol/L (98-107); COR CA(FOR HYPOALB) 9.1 mg/dL (8.5-10.1); COR NA(FOR HYPERGLY) 142 mmol/L (136-145); CREATININE 0.61 mg/dL (0.55-1.02); MAGNESIUM 2.1 mg/dL (1.7-2.9); SODIUM 141 mmol/L (136-145); TOTAL PROTEIN 5.1 g/dL (6.4-8.2); eGFR NON BLACK RACES > 60 (>60)
[2022-03-28] MEDS: SOLU-Medrol 40 MG VIAL IVP SCH (05:31)
[2022-03-28 05:45] LABS: ANISOCYTOSIS SLIGHT; HYPOCHROMASIA SLIGHT; PLATELET MORPHOLOGY COMMENT NORMAL (NORMAL); TARGET CELLS PRESENT
--- NOTE | 2022-03-28 05:53 | RAD ---
HISTORYSOB Relevant Clinical InformationSTUDYCHEST, 1 [id number]/28/2022FINDINGSThe trachea is midline. The cardiac silhouette is unremarkable. COPD. There is blunting of the left costophrenic angle again noted due to small effusion. No pneumothorax. The bony thorax is unremarkable.IMPRESSIONCOPD.Small left pleural effusion.No pneumothorax.Electronically signed by: Sekou Bae (Mar 28, 2022 05:52:25)
[2022-03-28] MEDS: NS 1,000 ML IV 1,000 ML IV SCH ×3 (06:10→20:21)
[2022-03-28] MEDS: PULMICORT NEB TX 0.5 MG NEB SCH ×2 (08:15→21:33)
[2022-03-28] MEDS: LASIX PO SCH ×2 (09:29→20:20)
[2022-03-28] MEDS: COREG TAB 3.125 MG PO SCH ×2 (09:29→20:19)
[2022-03-28] MEDS: LEVAQUIN PREMIX IV 500 MG 500 MG/100 ML BAG IV SCH (09:29)
[2022-03-28] MEDS: ELIQUIS PO SCH ×2 (09:29→20:19)
[2022-03-28] MEDS: MICRO K EXTEN CAP 10 MEQ PO SCH ×2 (09:29→20:19)
--- NOTE | 2022-03-28 12:22 | PCM.PROG ---
Progress Note - Progress Note for Day of Date of Exam: 03/27/22 - Subjective Subjective: WAS ADMITTED FOR A SPONTANEOUS RIGHT SIDED PNEUMOTHORAX AND COPD EXACERBATION. INITIAL CHEST XRAY SHOWED A 50% COLLAPSED LUNG. SATURATIONS WERE IN THE 70s. INSERTED A CHEST TUBE. TODAY, SHE IS ALERT AND ORIENTED, LYING IN BED ON MORNING ROUNDS. SHE REPORTS SLIGHT INCREASE IN SHORTNESS OF BREATH TODAY. SHE IS CURRENTLY UTILIZING OXYGEN VIA NASAL CANNULA AT 2 LPM. ON EXAMINATION, HEART IS REGULAR IN RATE AND RHYTHM. BILATERAL LUNGS NOTED WITH DIMINISHED LUNG SOUNDS THROUGHOUT. RIGHT SIDED CHEST TUBE NOTED. HER VITALS THIS MORNING ARE: 98.1-88-13-95%-171/80. LABS WERE OBTAINED. ABNORMAL LAB VALUES INCLUDED THE FOLLOWING: RBC 3.01, HGB 7.9, HCT 24.5, CARBON DIOXIDE 36.7, GLUCOSE 150, CALCIUM 8.0, ALK PHOS 45, TOTAL PROTEIN 5.4, ALBUMIN 2.3. BLOOD CULTURES ARE PENDING. A CHEST XRAY WAS OBTAINED AND REVEALED: Small left lower lobe infiltrate unchanged. New small left pleural effusion. No definite significant recurrent right pneumothorax. SHE IS CURRENTLY RECEIVING NORMAL SALINE AT 80 ML/HR, LEVAQUIN 500MG IV DAILY, SOLU-MEDROL 80MG IV Q8H, DUONEBS Q4H, PULMICORT NEBS BID, MORPHINE 2-5MG IV Q4H PRN, THE POTASSIUM PROTOCOL, AND HER HOME MEDICATIONS WERE RESUMED. WE WILL CONTINUE WITH CURRENT PLAN OF CARE TODAY. PLANS TO REMOVE CHEST TUBE TODAY. WE ARE IN AGREEMENT WITH PLANS. OTHERWISE, WE PLAN TO FOLLOW-UP WITH AM LABS AND CONTINUE TO MONITOR. TIME SPENT ON CLINICAL ASSESSMENT, REVIEWING LABS AND IMAGING, DECISION MAKING, AND DOCUMENTATION GREATER THAN 45 MINUTES. - Past Medical Family Social History Past Med/Fam/Surg Hx: No changes since H&P Allergies: Allergies codeine Allergy (Verified 09/24/21 07:06) - Review of Systems ROS: No change since H&P - Vital Signs and I&O's Vital Signs: Temperature 97.6 F Pulse Rate 106 Respiratory Rate 12 Blood Pressure [Right Arm] 105/53 Blood Pressure 122/65 O2 Sat by Pulse Oximetry 90 Intake and Output: Intake & Output 03/26/22 03/27/22 03/28/22 03/29/22 11:59 11:59 11:59 11:59 Intake Total 2529 / 2529 1445 / 1445 1235 / 1235 Output Total 1518 / 1518 1352 / 1352 2300 / 2300 Balance 1011 / 1011 93 / 93 -1065 / -1065 - Physical Exam Oriented: Normal Eyes: Normal Ear: Normal Nose: Normal Throat: Normal Respiratory: Diminished Cardiovascular: Normal : Normal Auscultation: Bowel Sounds: Normal Palpation: Normal Tenderness: Normal Skin: Normal Musculoskeletal: Back:Thoracic, Back:Lumbar Psychiatric: Normal Mood Description: Calm Affect: Normal Speech Pattern: Clear, Appropriate - Laboratory and Diagnostics Result Diagrams: 03/28/22 04:48 03/28/22 04:48 Labs: 03/22/22 16:02 Blood Blood Culture - Final 03/22/22 15:50 Blood Blood Culture - Final Laboratory WBC 5.5 X10^3/uL (3.6-10.0) 03/28/22 04:48 RBC 3.03 X10^6/uL (3.5-5.4) L 03/28/22 04:48 Hgb 8.0 g/dL (12.0-16.0) L 03/28/22 04:48 Hct 24.6 % (36.0-47.0) L 03/28/22 04:48 MCV 81.2 fL (80.0-100.0) 03/28/22 04:48 MCH 26.3 pg (27.0-34.0) L 03/28/22 04:48 MCHC 32.4 g/dL (33.0-35.0) L 03/28/22 04:48 RDW 20.8 % (11.6-16.5) H 03/28/22 04:48 Plt Count 234 X10^3/uL (150.0-450.0) 03/28/22 04:48 Plt Count Comment Adequate (ADEQUATE) 03/28/22 04:48 MPV 8.6 fL (7.4-11.0) 03/28/22 04:48 Neut % (Auto) 76.5 % (42.0-75.0) H 03/28/22 04:48 Lymph % (Auto) 13.5 % (21.0-51.0) L 03/28/22 04:48 [place] % (Auto) 9.9 % (0.0-13.0) 03/28/22 04:48 Eos % (Auto) 0.0 % (0.9-2.9) L 03/28/22 04:48 Baso % (Auto) 0.1 % (0.2-1.0) L 03/28/22 04:48 Neut # (Auto) 4.2 x10^3/uL (2.2-4.8) 03/28/22 04:48 Lymph # (Auto) 0.7 X10^3/uL (1.3-2.9) L 03/28/22 04:48 [place] # (Auto) 0.5 x10^3/uL (0.3-0.8) 03/28/22 04:48 Eos # (Auto) 0.0 x10^3/uL (0.0-0.2) 03/28/22 04:48 Baso # (Auto) 0.0 X10^3/uL (0.0-0.1) 03/28/22 04:48 Absolute Nucleated RBC 0.2 /100WBC 03/28/22 04:48 Plt Morphology Comment Normal (NORMAL) 03/28/22 04:48 RBC Morphology Abnormal (NORMAL) A 03/28/22 04:48 Hypochromasia Slight A 03/28/22 04:48 Anisocytosis Slight A 03/28/22 04:48 Target Cells Present 03/28/22 04:48 Sample Site Lr 03/24/22 05:00 ABG pH 7.480 (7.35-7.45) H 03/24/22 05:00 ABG pCO2 56.0 mmHg (35.0-45.0) H* 03/24/22 05:00 ABG pO2 72.0 mmHg (80.0-100.0) L 03/24/22 05:00 ABG HCO3 41.7 mmol/L (22-26) H* 03/24/22 05:00 ABG O2 Saturation 95.0 % (90-100) 03/24/22 05:00 ABG Base Excess 15.6 mmol/L (-2.0-2.0) H 03/24/22 05:00 Nabeel Test Pos 03/24/22 05:00 A-a Gradient 58.0 mmHg 03/24/22 05:00 FiO2 28.0 03/24/22 05:00 Blood Gas Comments Jooã well sw 03/24/22 05:00 Sodium 141 mmol/L (136-145) 03/28/22 04:48 Corrected Sodium 142 mmol/L (136-145) 03/28/22 04:48 Potassium 3.8 mmol/L (3.5-5.1) 03/28/22 04:48 Chloride 102 mmol/L (98-107) 03/28/22 04:48 Carbon Dioxide 37.4 mmol/L (21-32) H 03/28/22 04:48 BUN 16 mg/dL (7-18) 03/28/22 04:48 Creatinine 0.61 mg/dL (0.55-1.02) 03/28/22 04:48 Est GFR (MDRD) Af Amer > 60 (>60) 03/28/22 04:48 Est GFR (MDRD) Non-Af > 60 (>60) 03/28/22 04:48 Glucose 130 mg/dL (65-99) H 03/28/22 04:48 Lactic Acid 1.7 mmol/L (0.4-2.0) 03/22/22 15:50 Calcium 7.7 mg/dL (8.5-10.1) L 03/28/22 04:48 Corrected Calcium 9.1 mg/dL (8.5-10.1) 03/28/22 04:48 Magnesium 2.1 mg/dL (1.7-2.9) 03/28/22 04:48 Total Bilirubin 0.30 mg/dL (0.2-1.0) 03/28/22 04:48 AST 18 Units/L (15-37) 03/28/22 04:48 ALT 14 Units/L (12-78) 03/28/22 04:48 Alkaline Phosphatase 45 Units/L (46-116) L 03/28/22 04:48 Creatine Kinase 105 Units/L (26-192) 03/24/22 04:00 CK-MB (CK-2) < 1.0 ng/mL (0-4.0) 03/24/22 04:00 CK/CKMB % Calc 1.0 % (<4) 03/24/22 04:00 Troponin I High Sens 41.6 ng/L (4.0-60.0) 03/24/22 04:00 B-Natriuretic Peptide 433 pg/mL (0-79) H 03/26/22 03:45 Total Protein 5.1 g/dL (6.4-8.2) L 03/28/22 04:48 Albumin 2.2 g/dL (3.4-5.0) L 03/28/22 04:48 Globulin 2.9 g/dL (2.5-4.5) 03/28/22 04:48 Albumin/Globulin Ratio 0.8 Ratio (1.1-2.1) L 03/28/22 04:48 SARS-CoV-2 (PCR) Negative (NEGATIVE) 03/22/22 16:10 Influenza Type A (PCR) Negative (NEGATIVE) 03/22/22 16:10 Influenza Type B (PCR) Negative (NEGATIVE) 03/22/22 16:10 RSV (PCR) Negative (NEGATIVE) 03/22/22 16:10 - Plan (1) Spontaneous pneumothorax Status: Acute Plan: Continue with chest tube at this time and repeat chest x-ray in the morning. (2) COPD exacerbation Status: Acute Plan: Jet nebs, IV Solu-Medrol and IV antibiotics. (3) HTN (hypertension) Status: Chronic Qualifiers: Hypertension type: primary hypertension Qualified Code(s): I10 - Essential (primary) hypertension (4) CHF (congestive heart failure) Status: Chronic Qualifiers: Heart failure chronicity: chronic
[2022-03-28] MEDS: K-DUR TAB 20 MEQ PO PRN (16:43)
[2022-03-28] MEDS: XANAX PO PRN (20:19)
[2022-03-28] MEDS: LIPITOR TAB 10 MG PO SCH (20:19)
[2022-03-28] MEDS: MAGIC MOUTHWASH (Orig. Formula) MT PRN (20:34)
[2022-03-28] MEDS: BUTT CREAM (COMPOUND) TOP PRN (20:35)
--- NOTE | 2022-03-28 23:19 | PCM.PROG ---
Progress Note - Progress Note for Day of Date of Exam: 03/28/22 - Subjective Subjective: WAS ADMITTED FOR A SPONTANEOUS RIGHT SIDED PNEUMOTHORAX AND COPD EXACERBATION. INITIAL CHEST XRAY SHOWED A 50% COLLAPSED LUNG. SATURATIONS WERE IN THE 70s. INSERTED A CHEST TUBE. CHEST TUBE WAS REMOVED YESTERDAY. TODAY, SHE IS ALERT AND ORIENTED, LYING IN BED ON MORNING ROUNDS. SHE CONTINUES WITH COMPLAINTS OF SHORTNESS OF BREATH AND GENERALIZED WEAKNESS. SHE IS CURRENTLY UTILIZING OXYGEN VIA NASAL CANNULA AT 2 LPM. ON EXAMINATION, HEART IS REGULAR IN RATE AND RHYTHM. BILATERAL LUNGS NOTED WITH DIMINISHED LUNG SOUNDS THROUGHOUT. RIGHT SIDED CHEST TUBE NOTED. HER VITALS THIS MORNING ARE: 97.9-84-25-95%-154/62. LABS WERE OBTAINED. ABNORMAL LAB VALUES INCLUDED THE FOLLOWING: RBC 3.03, HGB 8.0, HCT 24.6, CARBON DIOXIDE 37.4, GLUCOSE 130, CALCIUM 7.7, ALK PHOS 45, TOTAL PROTEIN 5.1, ALBUMIN 2.2. A CHEST XRAY WAS OBTAINED AND REVEALED: COPD. Small left pleural effusion. No pneumothorax. SHE IS CURRENTLY RECEIVING NORMAL SALINE AT 80 ML/HR, LEVAQUIN 500MG IV DAILY, SOLU-MEDROL 80MG IV Q8H, DUONEBS Q4H, PULMICORT NEBS BID, MORPHINE 2-5MG IV Q4H PRN, THE POTASSIUM PROTOCOL, AND HER HOME MEDICATIONS WERE RESUMED. WE WILL CONTINUE WITH CURRENT PLAN OF CARE TODAY. PHYSICAL THERAPY HAS BEEN WORKING WITH PATIENT AND FEELS THAT SHE WOULD BENEFIT FROM AN EXTENDED P [place]RI[place] OF INPATIENT PHYSICAL THERAPY. WE WILL PLAN TO TRANSITION PATIENT TO SWINGBED STATUS FOR PHYSICAL THERAPY AND REHAB WHEN SHE IS STABLE. OTHERWISE, WE PLAN TO FOLLOW-UP WITH AM LABS AND CHEST XRAY AND CONTINUE TO MONITOR. TIME SPENT ON CLINICAL ASSESSMENT, REVIEWING LABS AND IMAGING, DECISION MAKING, AND DOCUMENTATION GREATER THAN 45 MINUTES. - Past Medical Family Social History Past Med/Fam/Surg Hx: No changes since H&P Allergies: Allergies codeine Allergy (Verified 09/24/21 07:06) - Review of Systems ROS: No change since H&P - Vital Signs and I&O's Vital Signs: Temperature 99.4 F Pulse Rate 86 Respiratory Rate 24 Blood Pressure [Right Arm] 105/53 Blood Pressure 170/72 O2 Sat by Pulse Oximetry 95 Intake and Output: Intake & Output 03/26/22 03/27/22 03/28/22 03/29/22 11:59 11:59 11:59 11:59 Intake Total 2529 / 2529 1445 / 1445 1235 / 1235 591 / 591 Output Total 1518 / 1518 1352 / 1352 2300 / 2300 400 / 400 Balance 1011 / 1011 93 / 93 -1065 / -1065 191 / 191 - Physical Exam Oriented: Normal Eyes: Normal Ear: Normal Nose: Normal Throat: Normal Respiratory: Diminished Cardiovascular: Normal : Normal Auscultation: Bowel Sounds: Normal Palpation: Normal Tenderness: Normal Skin: Normal Musculoskeletal: Back:Thoracic, Back:Lumbar Psychiatric: Normal Mood Description: Calm Affect: Normal Speech Pattern: Clear, Appropriate - Laboratory and Diagnostics Result Diagrams: 03/28/22 04:48 03/28/22 04:48 Labs: 03/22/22 16:02 Blood Blood Culture - Final 03/22/22 15:50 Blood Blood Culture - Final Laboratory WBC 5.5 X10^3/uL (3.6-10.0) 03/28/22 04:48 RBC 3.03 X10^6/uL (3.5-5.4) L 03/28/22 04:48 Hgb 8.0 g/dL (12.0-16.0) L 03/28/22 04:48 Hct 24.6 % (36.0-47.0) L 03/28/22 04:48 MCV 81.2 fL (80.0-100.0) 03/28/22 04:48 MCH 26.3 pg (27.0-34.0) L 03/28/22 04:48 MCHC 32.4 g/dL (33.0-35.0) L 03/28/22 04:48 RDW 20.8 % (11.6-16.5) H 03/28/22 04:48 Plt Count 234 X10^3/uL (150.0-450.0) 03/28/22 04:48 Plt Count Comment Adequate (ADEQUATE) 03/28/22 04:48 MPV 8.6 fL (7.4-11.0) 03/28/22 04:48 Neut % (Auto) 76.5 % (42.0-75.0) H 03/28/22 04:48 Lymph % (Auto) 13.5 % (21.0-51.0) L 03/28/22 04:48 [place] % (Auto) 9.9 % (0.0-13.0) 03/28/22 04:48 Eos % (Auto) 0.0 % (0.9-2.9) L 03/28/22 04:48 Baso % (Auto) 0.1 % (0.2-1.0) L 03/28/22 04:48 Neut # (Auto) 4.2 x10^3/uL (2.2-4.8) 03/28/22 04:48 Lymph # (Auto) 0.7 X10^3/uL (1.3-2.9) L 03/28/22 04:48 [place] # (Auto) 0.5 x10^3/uL (0.3-0.8) 03/28/22 04:48 Eos # (Auto) 0.0 x10^3/uL (0.0-0.2) 03/28/22 04:48 Baso # (Auto) 0.0 X10^3/uL (0.0-0.1) 03/28/22 04:48 Absolute Nucleated RBC 0.2 /100WBC 03/28/22 04:48 Plt Morphology Comment Normal (NORMAL) 03/28/22 04:48 RBC Morphology Abnormal (NORMAL) A 03/28/22 04:48 Hypochromasia Slight A 03/28/22 04:48 Anisocytosis Slight A 03/28/22 04:48 Target Cells Present 03/28/22 04:48 Sample Site Lr 03/24/22 05:00 ABG pH 7.480 (7.35-7.45) H 03/24/22 05:00 ABG pCO2 56.0 mmHg (35.0-45.0) H* 03/24/22 05:00 ABG pO2 72.0 mmHg (80.0-100.0) L 03/24/22 05:00 ABG HCO3 41.7 mmol/L (22-26) H* 03/24/22 05:00 ABG O2 Saturation 95.0 % (90-100) 03/24/22 05:00 ABG Base Excess 15.6 mmol/L (-2.0-2.0) H 03/24/22 05:00 Nabeel Test Pos 03/24/22 05:00 A-a Gradient 58.0 mmHg 03/24/22 05:00 FiO2 28.0 03/24/22 05:00 Blood Gas Comments João well sw 03/24/22 05:00 Sodium 141 mmol/L (136-145) 03/28/22 04:48 Corrected Sodium 142 mmol/L (136-145) 03/28/22 04:48 Potassium 3.8 mmol/L (3.5-5.1) 03/28/22 04:48 Chloride 102 mmol/L (98-107) 03/28/22 04:48 Carbon Dioxide 37.4 mmol/L (21-32) H 03/28/22 04:48 BUN 16 mg/dL (7-18) 03/28/22 04:48 Creatinine 0.61 mg/dL (0.55-1.02) 03/28/22 04:48 Est GFR (MDRD) Af Amer > 60 (>60) 03/28/22 04:48 Est GFR (MDRD) Non-Af > 60 (>60) 03/28/22 04:48 Glucose 130 mg/dL (65-99) H 03/28/22 04:48 Lactic Acid 1.7 mmol/L (0.4-2.0) 03/22/22 15:50 Calcium 7.7 mg/dL (8.5-10.1) L 03/28/22 04:48 Corrected Calcium 9.1 mg/dL (8.5-10.1) 03/28/22 04:48 Magnesium 2.1 mg/dL (1.7-2.9) 03/28/22 04:48 Total Bilirubin 0.30 mg/dL (0.2-1.0) 03/28/22 04:48 AST 18 Units/L (15-37) 03/28/22 04:48 ALT 14 Units/L (12-78) 03/28/22 04:48 Alkaline Phosphatase 45 Units/L (46-116) L 03/28/22 04:48 Creatine Kinase 105 Units/L (26-192) 03/24/22 04:00 CK-MB (CK-2) < 1.0 ng/mL (0-4.0) 03/24/22 04:00 CK/CKMB % Calc 1.0 % (<4) 03/24/22 04:00 Troponin I High Sens 41.6 ng/L (4.0-60.0) 03/24/22 04:00 B-Natriuretic Peptide 433 pg/mL (0-79) H 03/26/22 03:45 Total Protein 5.1 g/dL (6.4-8.2) L 03/28/22 04:48 Albumin 2.2 g/dL (3.4-5.0) L 03/28/22 04:48 Globulin 2.9 g/dL (2.5-4.5) 03/28/22 04:48 Albumin/Globulin Ratio 0.8 Ratio (1.1-2.1) L 03/28/22 04:48 SARS-CoV-2 (PCR) Negative (NEGATIVE) 03/22/22 16:10 Influenza Type A (PCR) Negative (NEGATIVE) 03/22/22 16:10 Influenza Type B (PCR) Negative (NEGATIVE) 03/22/22 16:10 RSV (PCR) Negative (NEGATIVE) 03/22/22 16:10 - Plan (1) Spontaneous pneumothorax Status: Acute Plan: repeat chest x-ray in the morning to monitor for recurrent pneumothorax (2) COPD exacerbation Status: Acute Plan: Jet nebs, IV Solu-Medrol and IV antibiotics. (3) HTN (hypertension) Status: Chronic Qualifiers: Hypertension type: primary hypertension Qualified Code(s): I10 - Essential (primary) hypertension (4) CHF (congestive heart failure) Status: Chronic Qualifiers: Heart failure chronicity: chronic
[2022-03-29] MEDS: DUONEB 0.5 MG/3 MG (3 mL) NEB SCH ×6 (00:42→21:39)
[2022-03-29 06:28] LABS: BASOPHILS % (AUTO) 0.1 % (0.2-1.0); EOSINOPHILS # (AUTO) 0.1 x10^3/uL (0.0-0.2); EOSINOPHILS % (AUTO) 2.2 % (0.9-2.9); HEMATOCRIT 25.2 % (36.0-47.0); HEMOGLOBIN 8.1 g/dL (12.0-16.0); LYMPHOCYTES # (AUTO) 1.1 X10^3/uL (1.3-2.9); LYMPHOCYTES % (AUTO) 17.7 % (21.0-51.0); MEAN CORPUSCULAR VOLUME 81.1 fL (80.0-100.0); MEAN PLATELET VOLUME 9.1 fL (7.4-11.0); MONOCYTES # (AUTO) 0.7 x10^3/uL (0.3-0.8); MONOCYTES % (AUTO) 10.2 % (0.0-13.0); NEUTROPHILS # (AUTO) 4.5 x10^3/uL (2.2-4.8); NEUTROPHILS % (AUTO) 69.8 % (42.0-75.0); RED BLOOD COUNT 3.11 X10^6/uL (3.5-5.4); RED CELL DISTRIBUTION WIDTH 21.1 % (11.6-16.5); WHITE BLOOD COUNT 6.4 X10^3/uL (3.6-10.0)
[2022-03-29 06:33] LABS: ALANINE AMINOTRANSFERASE 13 Units/L (12-78); ALKALINE PHOSPHATASE 43 Units/L (46-116); ASPARTATE AMINO TRANSFERASE 17 Units/L (15-37); BLOOD UREA NITROGEN 15 mg/dL (7-18); CALCIUM 7.4 mg/dL (8.5-10.1); CHLORIDE 107 mmol/L (98-107); SODIUM 146 mmol/L (136-145); TOTAL PROTEIN 4.6 g/dL (6.4-8.2); eGFR NON BLACK RACES > 60 (>60)
[2022-03-29 06:48] LABS: ANISOCYTOSIS 1+; HYPOCHROMASIA SLIGHT; PLATELET MORPHOLOGY COMMENT NORMAL (NORMAL)
[2022-03-29] MEDS: PULMICORT NEB TX 0.5 MG NEB SCH ×2 (07:53→21:39)
[2022-03-29] MEDS: XANAX PO PRN (07:55)
[2022-03-29] MEDS: COREG TAB 3.125 MG PO SCH ×2 (08:16→20:45)
[2022-03-29] MEDS: MICRO K EXTEN CAP 10 MEQ PO SCH ×2 (08:17→20:45)
[2022-03-29] MEDS: LEVAQUIN PREMIX IV 500 MG 500 MG/100 ML BAG IV SCH (08:17)
[2022-03-29] MEDS: ELIQUIS PO SCH ×2 (08:17→20:45)
[2022-03-29] MEDS: LASIX PO SCH ×2 (08:17→20:46)
[2022-03-29] MEDS: NS 1,000 ML IV 1,000 ML IV SCH ×2 (08:18→21:31)
--- NOTE | 2022-03-29 08:41 | RAD ---
HISTORYSOBSTUDYCHEST, 1 [id number] trachea is midline. The cardiac silhouette is unremarkable . The lungs demonstrate interstitial coarsening, upper lobe predominant increased lucency and hyperexpansion which are consistent with changes associated with COPD. The lungs are clear without focal infiltrate or effusion. The bony thorax is unremarkable.IMPRESSIONCOPD without acute cardiopulmonary abnormality or significant change from prior examination.Electronically signed by: GERRI BELL (Mar 29, 2022 08:40:37)
[2022-03-29] MEDS: ALBUMIN HUMAN 25%- 100 ML 100 ML IV SCH (12:19)
--- NOTE | 2022-03-29 18:50 | PCM.PROG ---
Progress Note - Progress Note for Day of Date of Exam: 03/29/22 - Subjective Subjective: WAS ADMITTED FOR A SPONTANEOUS RIGHT SIDED PNEUMOTHORAX AND COPD EXACERBATION. PNEUMOTHORAX HAS RESOLVED AND CHEST TUBE WAS REMOVED YESTERDAY. TODAY, SHE IS ALERT AND ORIENTED, LYING IN BED ON MORNING ROUNDS. SHE CONTINUES WITH COMPLAINTS OF SHORTNESS OF BREATH AND GENERALIZED WEAKNESS. SHE IS CURRENTLY UTILIZING OXYGEN VIA NASAL CANNULA AT 2 LPM. ON EXAMINATION, HEART IS REGULAR IN RATE AND RHYTHM. BILATERAL LUNGS NOTED WITH DIMINISHED LUNG SOUNDS THROUGHOUT. RIGHT SIDED CHEST TUBE NOTED. HER VITALS THIS MORNING ARE: 98.6-77-22-96%-145/65. LABS WERE OBTAINED. ABNORMAL LAB VALUES INCLUDED THE FOLLOWING: RBC 3.11, HGB 8.1, HCT 25.2, SODIUM 146, CARBON DIOXIDE 34.0, CALCIUM 7.4, ALK PHOS 43, TOTAL PROTEIN 4.6, ALBUMIN 2.0. A CHEST XRAY WAS OBTAINED AND REVEALED: COPD without acute cardiopulmonary abnormality or significant change from prior examination. SHE IS CURRENTLY RECEIVING NORMAL SALINE AT 80 ML/HR, LEVAQUIN 500MG IV DAILY, SOLU-MEDROL 80MG IV Q8H, DUONEBS Q4H, PULMICORT NEBS BID, MORPHINE 2-5MG IV Q4H PRN, THE POTASSIUM PROTOCOL, AND HER HOME MEDICATIONS WERE RESUMED. WE WILL CONTINUE WITH CURRENT PLAN OF CARE TODAY AND ADD ALBUMIN 25% IV DAILY. PHYSICAL THERAPY HAS BEEN WORKING WITH PATIENT AND FEELS THAT SHE WOULD BENEFIT FROM AN EXTENDED PERIOD OF INPATIENT PHYSICAL THERAPY. WE WILL PLAN TO TRANSITION PATIENT TO SWINGBED STATUS FOR PHYSICAL THERAPY AND REHAB WHEN SHE IS STABLE. OTHERWISE, WE PLAN TO FOLLOW-UP WITH AM LABS AND CHEST XRAY AND CONTINUE TO MONITOR. TIME SPENT ON CLINICAL ASSESSMENT, REVIEWING LABS AND IMAGING, DECISION MAKING, AND DOCUMENTATION GREATER THAN 45 MINUTES. - Past Medical Family Social History Past Med/Fam/Surg Hx: No changes since H&P Allergies: Allergies codeine Allergy (Verified 09/24/21 07:06) - Review of Systems ROS: No change since H&P - Vital Signs and I&O's Vital Signs: Temperature 98.6 F Pulse Rate 82 Respiratory Rate 18 Blood Pressure [Right Arm] 105/53 Blood Pressure 103/51 O2 Sat by Pulse Oximetry 100 Intake and Output: Intake & Output 03/27/22 03/28/22 03/29/22 03/30/22 11:59 11:59 11:59 11:59 Intake Total 1445 / 1445 1235 / 1235 1149 / 1149 120 / 120 Output Total 1352 / 1352 2300 / 2300 400 / 400 Balance 93 / 93 -1065 / -1065 749 / 749 120 / 120 - Physical Exam Oriented: Normal Eyes: Normal Ear: Normal Nose: Normal Throat: Normal Respiratory: Diminished Cardiovascular: Normal : Normal Auscultation: Bowel Sounds: Normal Palpation: Normal Tenderness: Normal Skin: Normal Musculoskeletal: Back:Thoracic, Back:Lumbar Psychiatric: Normal Mood Description: Calm Affect: Normal Speech Pattern: Clear, Appropriate - Laboratory and Diagnostics Result Diagrams: 03/29/22 05:25 03/29/22 05:25 Labs: 03/22/22 16:02 Blood Blood Culture - Final 03/22/22 15:50 Blood Blood Culture - Final Laboratory WBC 6.4 X10^3/uL (3.6-10.0) 03/29/22 05:25 RBC 3.11 X10^6/uL (3.5-5.4) L 03/29/22 05:25 Hgb 8.1 g/dL (12.0-16.0) L 03/29/22 05:25 Hct 25.2 % (36.0-47.0) L 03/29/22 05:25 MCV 81.1 fL (80.0-100.0) 03/29/22 05:25 MCH 26.0 pg (27.0-34.0) L 03/29/22 05:25 MCHC 32.0 g/dL (33.0-35.0) L 03/29/22 05:25 RDW 21.1 % (11.6-16.5) H 03/29/22 05:25 Plt Count 236 X10^3/uL (150.0-450.0) 03/29/22 05:25 Plt Count Comment Adequate (ADEQUATE) 03/29/22 05:25 MPV 9.1 fL (7.4-11.0) 03/29/22 05:25 Neut % (Auto) 69.8 % (42.0-75.0) 03/29/22 05:25 Lymph % (Auto) 17.7 % (21.0-51.0) L 03/29/22 05:25 [place] % (Auto) 10.2 % (0.0-13.0) 03/29/22 05:25 Eos % (Auto) 2.2 % (0.9-2.9) 03/29/22 05:25 Baso % (Auto) 0.1 % (0.2-1.0) L 03/29/22 05:25 Neut # (Auto) 4.5 x10^3/uL (2.2-4.8) 03/29/22 05:25 Lymph # (Auto) 1.1 X10^3/uL (1.3-2.9) L 03/29/22 05:25 [place] # (Auto) 0.7 x10^3/uL (0.3-0.8) 03/29/22 05:25 Eos # (Auto) 0.1 x10^3/uL (0.0-0.2) 03/29/22 05:25 Baso # (Auto) 0.0 X10^3/uL (0.0-0.1) 03/29/22 05:25 Absolute Nucleated RBC 0.2 /100WBC 03/29/22 05:25 Plt Morphology Comment Normal (NORMAL) 03/29/22 05:25 RBC Morphology Abnormal (NORMAL) A 03/29/22 05:25 Hypochromasia Slight A 03/29/22 05:25 Anisocytosis 1+ A 03/29/22 05:25 Target Cells Present 03/28/22 04:48 Sample Site Lr 03/24/22 05:00 ABG pH 7.480 (7.35-7.45) H 03/24/22 05:00 ABG pCO2 56.0 mmHg (35.0-45.0) H* 03/24/22 05:00 ABG pO2 72.0 mmHg (80.0-100.0) L 03/24/22 05:00 ABG HCO3 41.7 mmol/L (22-26) H* 03/24/22 05:00 ABG O2 Saturation 95.0 % (90-100) 03/24/22 05:00 ABG Base Excess 15.6 mmol/L (-2.0-2.0) H 03/24/22 05:00 Nabeel Test Pos 03/24/22 05:00 A-a Gradient 58.0 mmHg 03/24/22 05:00 FiO2 28.0 03/24/22 05:00 Blood Gas Comments João well sw 03/24/22 05:00 Sodium 146 mmol/L (136-145) H 03/29/22 05:25 Corrected Sodium TNP 03/29/22 05:25 Potassium 3.6 mmol/L (3.5-5.1) 03/29/22 05:25 Chloride 107 mmol/L (98-107) 03/29/22 05:25 Carbon Dioxide 34.0 mmol/L (21-32) H 03/29/22 05:25 BUN 15 mg/dL (7-18) 03/29/22 05:25 Creatinine 0.60 mg/dL (0.55-1.02) 03/29/22 05:25 Est GFR (MDRD) Af Amer > 60 (>60) 03/29/22 05:25 Est GFR (MDRD) Non-Af > 60 (>60) 03/29/22 05:25 Glucose 89 mg/dL (65-99) 03/29/22 05:25 Lactic Acid 1.7 mmol/L (0.4-2.0) 03/22/22 15:50 Calcium 7.4 mg/dL (8.5-10.1) L 03/29/22 05:25 Corrected Calcium 9.0 mg/dL (8.5-10.1) 03/29/22 05:25 Magnesium 2.1 mg/dL (1.7-2.9) 03/28/22 04:48 Total Bilirubin 0.20 mg/dL (0.2-1.0) 03/29/22 05:25 AST 17 Units/L (15-37) 03/29/22 05:25 ALT 13 Units/L (12-78) 03/29/22 05:25 Alkaline Phosphatase 43 Units/L (46-116) L 03/29/22 05:25 Creatine Kinase 105 Units/L (26-192) 03/24/22 04:00 CK-MB (CK-2) < 1.0 ng/mL (0-4.0) 03/24/22 04:00 CK/CKMB % Calc 1.0 % (<4) 03/24/22 04:00 Troponin I High Sens 41.6 ng/L (4.0-60.0) 03/24/22 04:00 B-Natriuretic Peptide 433 pg/mL (0-79) H 03/26/22 03:45 Total Protein 4.6 g/dL (6.4-8.2) L 03/29/22 05:25 Albumin 2.0 g/dL (3.4-5.0) L 03/29/22 05:25 Globulin 2.6 g/dL (2.5-4.5) 03/29/22 05:25 Albumin/Globulin Ratio 0.8 Ratio (1.1-2.1) L 03/29/22 05:25 SARS-CoV-2 (PCR) Negative (NEGATIVE) 03/22/22 16:10 Influenza Type A (PCR) Negative (NEGATIVE) 03/22/22 16:10 Influenza Type B (PCR) Negative (NEGATIVE) 03/22/22 16:10 RSV (PCR) Negative (NEGATIVE) 03/22/22 16:10 - Plan (1) Spontaneous pneumothorax Status: Acute Plan: repeat chest x-ray in the morning to monitor for recurrent pneumothorax (2) COPD exacerbation Status: Acute Plan: Jet nebs, IV Solu-Medrol and IV antibiotics. (3) HTN (hypertension) Status: Chronic Qualifiers: Hypertension type: primary hypertension Qualified Code(s): I10 - Essential (primary) hypertension (4) CHF (congestive heart failure) Status: Chronic Qualifiers: Heart failure chronicity: chronic
[2022-03-29] MEDS: LIPITOR TAB 10 MG PO SCH (20:47)
[2022-03-29] MEDS: BUTT CREAM (COMPOUND) TOP PRN (20:49)
[2022-03-30] MEDS: DUONEB 0.5 MG/3 MG (3 mL) NEB SCH ×6 (00:10→20:11)
[2022-03-30] MEDS: ULTRAM PO PRN ×2 (05:00→12:38)
[2022-03-30 05:16] LABS: BASOPHILS % (AUTO) 0.1 % (0.2-1.0); EOSINOPHILS # (AUTO) 0.3 x10^3/uL (0.0-0.2); EOSINOPHILS % (AUTO) 3.1 % (0.9-2.9); HEMATOCRIT 23.4 % (36.0-47.0); HEMOGLOBIN 7.7 g/dL (12.0-16.0); LYMPHOCYTES % (AUTO) 8.8 % (21.0-51.0); MEAN CORPUSCULAR HGB CONC 32.9 g/dL (33.0-35.0); MEAN CORPUSCULAR VOLUME 82.1 fL (80.0-100.0); MEAN PLATELET VOLUME 8.4 fL (7.4-11.0); MONOCYTES # (AUTO) 0.8 x10^3/uL (0.3-0.8); MONOCYTES % (AUTO) 7.3 % (0.0-13.0); NEUTROPHILS # (AUTO) 8.7 x10^3/uL (2.2-4.8); NEUTROPHILS % (AUTO) 80.7 % (42.0-75.0); RED BLOOD COUNT 2.85 X10^6/uL (3.5-5.4); RED CELL DISTRIBUTION WIDTH 21.2 % (11.6-16.5); WHITE BLOOD COUNT 10.8 X10^3/uL (3.6-10.0)
[2022-03-30 05:37] LABS: ALANINE AMINOTRANSFERASE 11 Units/L (12-78); ALBUMIN 2.4 g/dL (3.4-5.0); ALKALINE PHOSPHATASE 42 Units/L (46-116); ASPARTATE AMINO TRANSFERASE 16 Units/L (15-37); BLOOD UREA NITROGEN 11 mg/dL (7-18); CALCIUM 7.7 mg/dL (8.5-10.1); CARBON DIOXIDE 34.2 mmol/L (21-32); CHLORIDE 106 mmol/L (98-107); CREATININE 0.57 mg/dL (0.55-1.02); SODIUM 145 mmol/L (136-145); TOTAL PROTEIN 4.9 g/dL (6.4-8.2); eGFR NON BLACK RACES > 60 (>60)
--- NOTE | 2022-03-30 06:40 | RAD ---
HISTORYSOBSTUDYCHEST, 1 [id number]/30/2022FINDINGSTrachea midline. Cardiac silhouette unremarkable. No significant change coarsened interstitium and COPD changes of the lungs. There is no new airspace disease or pleural effusion. No acute osseous abnormality.IMPRESSIONStable COPD changes with chronic interstitial lung changes. No significant change from prior examination.Electronically signed by: GERRI BELL (March 30, 2022 06:40:17)
[2022-03-30 07:14] LABS: PLATELET MORPHOLOGY COMMENT NORMAL (NORMAL)
[2022-03-30 07:15] LABS: ANISOCYTOSIS 1+; HYPOCHROMASIA SLIGHT
[2022-03-30] MEDS: LEVAQUIN PREMIX IV 500 MG 500 MG/100 ML BAG IV SCH (09:04)
[2022-03-30] MEDS: ALBUMIN HUMAN 25%- 100 ML 100 ML IV SCH (09:04)
[2022-03-30] MEDS: COREG TAB 3.125 MG PO SCH ×2 (09:05→21:46)
[2022-03-30] MEDS: MICRO K EXTEN CAP 10 MEQ PO SCH ×2 (09:06→21:47)
[2022-03-30] MEDS: LASIX PO SCH ×2 (09:06→21:47)
[2022-03-30] MEDS: ELIQUIS PO SCH ×2 (09:06→21:47)
[2022-03-30] MEDS: PULMICORT NEB TX 0.5 MG NEB SCH ×2 (09:25→20:11)
--- NOTE | 2022-03-30 11:45 | PCM.PROG ---
Progress Note - Progress Note for Day of Date of Exam: 03/30/22 - Subjective Subjective: WAS ADMITTED FOR A SPONTANEOUS RIGHT SIDED PNEUMOTHORAX AND COPD EXACERBATION. PNEUMOTHORAX HAS RESOLVED AND CHEST TUBE WAS REMOVED TWO DAYS AGO. TODAY, SHE IS ALERT AND ORIENTED, LYING IN BED ON MORNING ROUNDS. SHE CONTINUES WITH COMPLAINTS OF SHORTNESS OF BREATH AND GENERALIZED WEAKNESS. SHE IS CURRENTLY UTILIZING OXYGEN VIA NASAL CANNULA AT 2 LPM. ON EXAMINATION, HEART IS REGULAR IN RATE AND RHYTHM. BILATERAL LUNGS NOTED WITH DIMINISHED LUNG SOUNDS THROUGHOUT. RIGHT SIDED CHEST TUBE NOTED. HER VITALS THIS MORNING ARE: 97.6-82-20-100%-105/54. LABS WERE OBTAINED. ABNORMAL LAB VALUES INCLUDED THE FOLLOWING: WBC 10.8, RBC 2.85, HGB 7.7, HCT 23.4, CARBON DIOXIDE 34.2, CALCIUM 7.7, ALT 11, ALK PHOS 42, TOTAL PROTEIN 4.9, ALBUMIIN 2.4. A CHEST XRAY WAS OBTAINED AND REVEALED: Stable COPD changes with chronic interstitial lung changes. No significant change from prior examination. SHE IS CURRENTLY RECEIVING NORMAL SALINE AT 80 ML/HR, ALBUMIN 25% IV DAILY, LEVAQUIN 500MG IV DAILY, SOLU-MEDROL 80MG IV Q8H, DUONEBS Q4H, PULMICORT NEBS BID, MORPHINE 2-5MG IV Q4H PRN, THE POTASSIUM PROTOCOL, AND HER HOME MEDICATIONS WERE RESUMED. WE WILL CONTINUE WITH CURRENT PLAN OF CARE TODAY. PHYSICAL THERAPY HAS BEEN WORKING WITH PATIENT AND FEELS THAT SHE WOULD BENEFIT FROM AN EXTENDED PERIOD OF INPATIENT PHYSICAL THERAPY. WE WILL PLAN TO TRANSITION PATIENT TO SWINGBED STATUS FOR PHYSICAL THERAPY AND REHAB WHEN SHE IS STABLE. OTHERWISE, WE PLAN TO FOLLOW-UP WITH AM LABS AND CHEST XRAY AND CONTINUE TO MONITOR. TIME SPENT ON CLINICAL ASSESSMENT, REVIEWING LABS AND IMAGING, DECISION MAKING, AND DOCUMENTATION GREATER THAN 45 MINUTES. - Past Medical Family Social History Past Med/Fam/Surg Hx: No changes since H&P Allergies: Allergies codeine Allergy (Verified 09/24/21 07:06) - Review of Systems ROS: No change since H&P - Vital Signs and I&O's Vital Signs: Temperature 97.6 F Pulse Rate 82 Respiratory Rate 20 Blood Pressure [Right Arm] 105/53 Blood Pressure 105/54 O2 Sat by Pulse Oximetry 99 Intake and Output: Intake & Output 04/2803/28/22 03/29/22 03/30/22 11:59 11:59 11:59 11:59 Intake Total 1445 / 1445 1235 / 1235 1149 / 1149 1796 / 1796 Output Total 1352 / 1352 2300 / 2300 400 / 400 Balance 93 / 93 -1065 / -1065 749 / 749 1796 / 1796 - Physical Exam Oriented: Normal Eyes: Normal Ear: Normal Nose: Normal Throat: Normal Respiratory: Diminished Cardiovascular: Normal : Normal Auscultation: Bowel Sounds: Normal Tenderness: Normal Skin: Normal Musculoskeletal: Back:Thoracic, Back:Lumbar Psychiatric: Normal Mood Description: Calm Affect: Normal Speech Pattern: Clear, Appropriate - Laboratory and Diagnostics Result Diagrams: 03/30/22 04:55 03/30/22 04:55 Labs: 03/22/22 16:02 Blood Blood Culture - Final 03/22/22 15:50 Blood Blood Culture - Final Laboratory WBC 10.8 X10^3/uL (3.6-10.0) H 03/30/22 04:55 RBC 2.85 X10^6/uL (3.5-5.4) L 03/30/22 04:55 Hgb 7.7 g/dL (12.0-16.0) L 03/30/22 04:55 Hct 23.4 % (36.0-47.0) L 03/30/22 04:55 MCV 82.1 fL (80.0-100.0) 03/30/22 04:55 MCH 27.0 pg (27.0-34.0) 03/30/22 04:55 MCHC 32.9 g/dL (33.0-35.0) L 03/30/22 04:55 RDW 21.2 % (11.6-16.5) H 03/30/22 04:55 Plt Count 234 X10^3/uL (150.0-450.0) 03/30/22 04:55 Plt Count Comment Adequate (ADEQUATE) 03/30/22 04:55 MPV 8.4 fL (7.4-11.0) 03/30/22 04:55 Neut % (Auto) 80.7 % (42.0-75.0) H 03/30/22 04:55 Lymph % (Auto) 8.8 % (21.0-51.0) L 03/30/22 04:55 [place] % (Auto) 7.3 % (0.0-13.0) 03/30/22 04:55 Eos % (Auto) 3.1 % (0.9-2.9) H 03/30/22 04:55 Baso % (Auto) 0.1 % (0.2-1.0) L 03/30/22 04:55 Neut # (Auto) 8.7 x10^3/uL (2.2-4.8) H 03/30/22 04:55 Lymph # (Auto) 1.0 X10^3/uL (1.3-2.9) L 03/30/22 04:55 [place] # (Auto) 0.8 x10^3/uL (0.3-0.8) 03/30/22 04:55 Eos # (Auto) 0.3 x10^3/uL (0.0-0.2) H 03/30/22 04:55 Baso # (Auto) 0.0 X10^3/uL (0.0-0.1) 03/30/22 04:55 Absolute Nucleated RBC 0.0 /100WBC 03/30/22 04:55 Plt Morphology Comment Normal (NORMAL) 03/30/22 04:55 RBC Morphology Abnormal (NORMAL) A 03/30/22 04:55 Hypochromasia Slight A 03/30/22 04:55 Anisocytosis 1+ A 03/30/22 04:55 Target Cells Present 03/28/22 04:48 Sample Site Lr 03/24/22 05:00 ABG pH 7.480 (7.35-7.45) H 03/24/22 05:00 ABG pCO2 56.0 mmHg (35.0-45.0) H* 03/24/22 05:00 ABG pO2 72.0 mmHg (80.0-100.0) L 03/24/22 05:00 ABG HCO3 41.7 mmol/L (22-26) H* 03/24/22 05:00 ABG O2 Saturation 95.0 % (90-100) 03/24/22 05:00 ABG Base Excess 15.6 mmol/L (-2.0-2.0) H 03/24/22 05:00 Nabeel Test Pos 03/24/22 05:00 A-a Gradient 58.0 mmHg 03/24/22 05:00 FiO2 28.0 03/24/22 05:00 Blood Gas Comments João well sw 03/24/22 05:00 Sodium 145 mmol/L (136-145) 03/30/22 04:55 Corrected Sodium TNP 03/30/22 04:55 Potassium 3.5 mmol/L (3.5-5.1) 03/30/22 04:55 Chloride 106 mmol/L (98-107) 03/30/22 04:55 Carbon Dioxide 34.2 mmol/L (21-32) H 03/30/22 04:55 BUN 11 mg/dL (7-18) 03/30/22 04:55 Creatinine 0.57 mg/dL (0.55-1.02) 03/30/22 04:55 Est GFR (MDRD) Af Amer > 60 (>60) 03/30/22 04:55 Est GFR (MDRD) Non-Af > 60 (>60) 03/30/22 04:55 Glucose 96 mg/dL (65-99) 03/30/22 04:55 Lactic Acid 1.7 mmol/L (0.4-2.0) 03/22/22 15:50 Calcium 7.7 mg/dL (8.5-10.1) L 03/30/22 04:55 Corrected Calcium 9.0 mg/dL (8.5-10.1) 03/30/22 04:55 Magnesium 2.1 mg/dL (1.7-2.9) 03/28/22 04:48 Total Bilirubin 0.30 mg/dL (0.2-1.0) 03/30/22 04:55 AST 16 Units/L (15-37) 03/30/22 04:55 ALT 11 Units/L (12-78) L 03/30/22 04:55 Alkaline Phosphatase 42 Units/L (46-116) L 03/30/22 04:55 Creatine Kinase 105 Units/L (26-192) 03/24/22 04:00 CK-MB (CK-2) < 1.0 ng/mL (0-4.0) 03/24/22 04:00 CK/CKMB % Calc 1.0 % (<4) 03/24/22 04:00 Troponin I High Sens 41.6 ng/L (4.0-60.0) 03/24/22 04:00 B-Natriuretic Peptide 433 pg/mL (0-79) H 03/26/22 03:45 Total Protein 4.9 g/dL (6.4-8.2) L 03/30/22 04:55 Albumin 2.4 g/dL (3.4-5.0) L 03/30/22 04:55 Globulin 2.5 g/dL (2.5-4.5) 03/30/22 04:55 Albumin/Globulin Ratio 1.0 Ratio (1.1-2.1) L 03/30/22 04:55 SARS-CoV-2 (PCR) Negative (NEGATIVE) 03/22/22 16:10 Influenza Type A (PCR) Negative (NEGATIVE) 03/22/22 16:10 Influenza Type B (PCR) Negative (NEGATIVE) 03/22/22 16:10 RSV (PCR) Negative (NEGATIVE) 03/22/22 16:10 - Plan (1) Spontaneous pneumothorax Status: Acute Plan: repeat chest x-ray in the morning to monitor for recurrent pneumothorax (2) COPD exacerbation Status: Acute Plan: Jet nebs, IV Solu-Medrol and IV antibiotics. (3) HTN (hypertension) Status: Chronic Qualifiers: Hypertension type: primary hypertension Qualified Code(s): I10 - Essential (primary) hypertension (4) CHF (congestive heart failure) Status: Chronic Qualifiers: Heart failure chronicity: chronic
[2022-03-30 18:24] VITALS: BMI 22.3
[2022-03-30] MEDS: LIPITOR TAB 10 MG PO SCH (21:46)
[2022-03-31] MEDS: DUONEB 0.5 MG/3 MG (3 mL) NEB SCH ×3 (00:36→08:20)
[2022-03-31] MEDS: NS 1,000 ML IV 1,000 ML IV SCH (01:14)
[2022-03-31 04:55] LABS: BASOPHILS % (AUTO) 0.2 % (0.2-1.0); EOSINOPHILS # (AUTO) 0.3 x10^3/uL (0.0-0.2); EOSINOPHILS % (AUTO) 3.5 % (0.9-2.9); HEMATOCRIT 23.6 % (36.0-47.0); HEMOGLOBIN 7.8 g/dL (12.0-16.0); LYMPHOCYTES # (AUTO) 1.3 X10^3/uL (1.3-2.9); LYMPHOCYTES % (AUTO) 13.9 % (21.0-51.0); MEAN CORPUSCULAR HGB CONC 33.2 g/dL (33.0-35.0); MEAN CORPUSCULAR VOLUME 81.3 fL (80.0-100.0); MEAN PLATELET VOLUME 8.4 fL (7.4-11.0); MONOCYTES # (AUTO) 0.9 x10^3/uL (0.3-0.8); NEUTROPHILS # (AUTO) 6.6 x10^3/uL (2.2-4.8); NEUTROPHILS % (AUTO) 72.4 % (42.0-75.0); WHITE BLOOD COUNT 9.1 X10^3/uL (3.6-10.0)
[2022-03-31 05:08] LABS: ALANINE AMINOTRANSFERASE 12 Units/L (12-78); ALBUMIN 2.8 g/dL (3.4-5.0); ALKALINE PHOSPHATASE 40 Units/L (46-116); ASPARTATE AMINO TRANSFERASE 12 Units/L (15-37); BLOOD UREA NITROGEN 9 mg/dL (7-18); CALCIUM 7.9 mg/dL (8.5-10.1); CHLORIDE 100 mmol/L (98-107); COR CA(FOR HYPOALB) 8.9 mg/dL (8.5-10.1); CREATININE 0.56 mg/dL (0.55-1.02); SODIUM 139 mmol/L (136-145); TOTAL PROTEIN 5.2 g/dL (6.4-8.2); eGFR NON BLACK RACES > 60 (>60)
[2022-03-31 06:19] LABS: ANISOCYTOSIS 1+; HYPOCHROMASIA SLIGHT; PLATELET MORPHOLOGY COMMENT NORMAL (NORMAL)
--- NOTE | 2022-03-31 06:25 | RAD ---
HISTORYShortness of breath, pneumothoraxSTUDYChest AP [id number]/01/2022FINDINGSHear t is upper limits normal in size. [place] are normal. Aorta is calcified. Lungs are hyperinflated but free of acute infiltrates. There is now haziness in the right lung base which may indicate pleural effusion or developing infiltrate. Follow-up of this area is recommended. Remainder of the lung girard are clear.IMPRESSIONHyperinflationHaziness at the right lung base which may indicate developing small pleural effusion or early infiltrate. Follow-up of this area is recommended.Electronically signed by: MARISSA DICKERSON (March 31, 2022 06:24:33)
[2022-03-31 07:48] VITALS: BP 118/74
[2022-03-31] MEDS: PULMICORT NEB TX 0.5 MG NEB SCH (08:20)
[2022-03-31] MEDS: LEVAQUIN PREMIX IV 500 MG 500 MG/100 ML BAG IV SCH (08:51)
[2022-03-31] MEDS: COREG TAB 3.125 MG PO SCH (08:52)
[2022-03-31] MEDS: ALBUMIN HUMAN 25%- 100 ML 100 ML IV SCH (08:52)
[2022-03-31] MEDS: ELIQUIS PO SCH (08:52)
[2022-03-31] MEDS: LASIX PO SCH (08:52)
[2022-03-31] MEDS: MICRO K EXTEN CAP 10 MEQ PO SCH (08:53)
== END 2022-03-31 09:00 | disposition swing bed (61) | DRG 200 ==
LOC: ER 15:18 → ICU 18:33 → MED/SURG 03-28 16:14
PROVIDERS: ADMIT Family Medicine; ATTEND Internal Medicine
DX: J93.11 Primary spontaneous pneumothorax; J44.1 Chronic obstructive pulmonary disease with (acute) exacerbation; Z20.822 Contact with and (suspected) exposure to COVID-19; R94.31 Abnormal electrocardiogram [ECG] [EKG]; I11.0 Hypertensive heart disease with heart failure; I50.9 Heart failure, unspecified; R06.02 Shortness of breath

== ENCOUNTER 2022-03-31 09:01 | Inpatient (IN) ==
[2022-03-31] MEDS ORDERED: BUTT CREAM (COMPOUND) TOP PRN (11:13)
[2022-03-31] MEDS ORDERED: ULTRAM PO PRN (11:13)
[2022-03-31] MEDS ORDERED: MAGIC MOUTHWASH (Orig. Formula) MT PRN (11:13)
[2022-03-31] MEDS ORDERED: TYLENOL 325 MG TAB PO PRN (11:13)
[2022-03-31] MEDS ORDERED: ATIVAN TAB 0.5 MG PO PRN (11:13)
--- NOTE | 2022-03-31 11:24 | DR.UPDATE ---
H&P Update History and Physical Update: History and Physical reviewed and patient examined. Changes noted: Yes with the following: TIME SPENT ON CLINICAL ASSESSMENT, REVIEWING LABS AND IMAGING, DECISION MAKING, AND DOCUMENTATION GREATER THAN 45 MINUTES. WAS INITIALLY ADMITTED FOR A SPONTANEOUS RIGHT SIDED PNEUMOTHORAX, COPD EXACERBATION, AND PNEUMONIA ON 03/22/22. PNEUMOTHORAX HAS RESOLVED AND CHEST TUBE WAS REMOVED ON 03/27/22. SHE CONTINUED TO RECEIVE ANTIBIOTICS AND NEBULIZER TREATMENTS FOR TREATMENT OF PNEUMONIA. PHYSICAL THERAPY VISITED AND WORKED WITH PATIENT DAILY. THEY SUGGESTED THAT PATIENT WOULD BENEFIT FROM PHYSICAL THERAPY AND REHAB, INPATIENT, PRIORT TO RETURNING HOME. PATIENT REQUIRES ASSISTANCE WITH MOBILITY AND ADLs. SHE WAS CHANGED TO SWINGBED STATUS TODAY, 03/31/22. SHE WILL CONTINUE TO RECEIVE ANTIBIOTICS AND NEBULIZER TREATMENTS FOR PNEUMONIA. PHYSICAL AND OCCUPATIONAL THERAPY WILL WORK WITH PATIENT DAILY. WE WILL MONITOR LABS AND CHEST XRAY 2-3 TIMES A WEEK. OTHERWISE, WE WILL MONITOR PATIENT AND MAKE CHANGES APPROPRIATE. TIME SPENT ON CLINICAL ASSESSMENT, REVIEWING LABS AND IMAGING, DECISION MAKING, AND DOCUMENTATION GREATER THAN 45 MINUTES. Prescription drug monitoring program results: PDMP was not reviewed H&P Reviewed: Yes Patient was examined?: Yes
[2022-03-31 11:28] VITALS: BMI 20.2
[2022-03-31] MEDS: DUONEB 0.5 MG/3 MG (3 mL) NEB SCH ×3 (13:15→20:19)
--- NOTE | 2022-03-31 16:02 | PT/OTEVAL ---
PT/OT OBJECTIVES - HISTORY Prescription: PT Consult Diagnosis: s/p R Sided Pneumothorax, COPD Exacerbation, Pneumonia Precautions: Fall Risk, Respiratory PMH: COPD, Hysterectomy Prior Level of Function: Independent Other, comment: Pt reports that she resides alone in single story home with no steps. Other: PLOF: Independent with mobility tasks within home with rollator. Reports that she has family members in and out to check on her throughout the day. - COGNITION Mental Status: Alert, Oriented, Name, Date, Place, Purpose Communication Status: Verbal Ability to Follow Directions: 2 Step Memory Loss: None - PAIN Right Chest Pain Scale: Moderate (5-6) Comments: "The right side of my chest, it still hurts where that tube was" - BED MOBILITY Rolling: Supervision Rolling Comment: Increased complaints of pain noted to R side chest Scooting: Minimal - TRANSFERS Supine to Sit: Minimal Sit to Stand: Not Tested Sit to Stand Comment: Pt declined despite education on benefits of completing task Sit or Stand Pivot: Not Tested Sit or Stand Pivot Comment: Pt declined. - BALANCE Static Sitting: Good Standing: Not Tested Dynamic Sitting: Good Standing: Not Tested - NEUROMOTOR/SENSATION Nicola. Lower Ext Sensation: WFL Coordination: WFL Proprioception: WFL - HAND DOMINANCE Extremity Function: Hand Dominance: Right - ROM Bilateral LE ROM: WFL Muscle Tone: WFL - STRENGTH Bilateral LE Strength Number: 4 Other comment: 4-/5 PT/OT ASSESSMENT - PT Problem List: Decreased Bed Mobility, Decreased Transfers, Decreased Gait, Decreased Balance, Decreased LE Strength - PT GOALS Short Term Goals Days: 10 Mobility: Pt will perform bed mobility tasks with supervision Transfers: Pt will perform functional transfers with CGA Gait: Pt will ambulate 75ft with rollator with CGA Balance: Pt will increase static standing balance to fair+/good- [facility] Goals Days: 20 Mobility: Pt will perform bed mobility tasks with mod I Transfers: Pt will perform functional transfers with mod I Gait: Pt will ambulate 150ft with rollator with mod I Balance: Pt will increase dynamic standing balance to fair+ ROM/Strength: Pt will increase BLE muscle strength to 5/5 - PATIENT GOALS Patient/Family Goals: "Go home" Goals Discussed with Patient/Family: Yes Rehabilitation Potential: Good to meet stated goals Justification for Potential: Facilitate highest level of function & safe discharge planning Weakness and Barriers: Decreased Participation If yes, explain: At times, pt requires increased education & motivation for participation - PLAN Suggested Treatment Plan: Bed Mobility Training, Therapeutic Activity, Gait Training, Neuro Re-education, Therapeutic Ex with HEP, Patient Education - FREQUENCY AND DURATION PT: 5x per week x 20 days Expected Continuation of Care at Discharge: Home Health
--- NOTE | 2022-03-31 16:47 | PT/OTEVAL ---
PT/OT OBJECTIVES - HISTORY Prescription: OT consult Diagnosis: S/p spontaneous pneumothorax Precautions: Fall risk, respiratory PMH: COPD Prior Level of Function: Independent Other: Patient reports she lived alone with family very close by who checks in on her. She reports she was independent with BADLs. Her goal for swingbed is to get back home and be independent with everything like she was before. Patient used a rollator prior to hospitalization. - COGNITION Mental Status: Alert, Oriented, Name, Date, Place, Purpose Communication Status: Verbal Ability to Follow Directions: 2 Step Memory Loss: None - PAIN Right Chest Pain Scale: Moderate (5-6) Comments: "The right side of my chest, it still hurts where that tube was" - BED MOBILITY Rolling: Moderate - TRANSFERS Supine to Sit: Minimal Sit to Stand: Not Tested Sit to Stand Comment: Patient refused, but has been Min-Mod while in ICU Sit or Stand Pivot: Not Tested Sit or Stand Pivot Comment: Patient refused, but has been Min-Mod while in ICU - ADL'S Feeding: Independent, Setup Grooming: Setup, Minimum - BALANCE Static Sitting: Good Standing: Not Tested Dynamic Sitting: Good Standing: Not Tested - NEUROMOTOR/SENSATION Nicola. Lower Ext Sensation: WFL Coordination: WFL Proprioception: WFL Nicola. Upper Ext Sensation: WFL Coordination: WFL Proprioception: WFL - ROM Left UE ROM: WFL Muscle Tone: WFL Comment: Pain when she moves RUE - STRENGTH Bilateral LE Strength Number: 4 Other comment: 4-/5 Left UE Strength Number: 3 PT/OT ASSESSMENT - OT Problem List: Decreased Mobility ADL's, Decreased Dressing, Decreased UE Strength, Other Other, comment: Decreased functional activity tolerance - PT GOALS Short Term Goals Days: 10 Mobility: Pt will perform bed mobility tasks with supervision Transfers: Pt will perform functional transfers with CGA Gait: Pt will ambulate 75ft with rollator with CGA Balance: Pt will increase static standing balance to fair+/good- [facility] Goals Days: 20 Mobility: Pt will perform bed mobility tasks with mod I Transfers: Pt will perform functional transfers with mod I Gait: Pt will ambulate 150ft with rollator with mod I Balance: Pt will increase dynamic standing balance to fair+ ROM/Strength: Pt will increase BLE muscle strength to 5/5 - OT GOALS Short Term Goals Days: 10 Mobility for ADL's: Will demonstrate safe functional transfers for BADLs w/ rollator w/ CGA. Upper Ext. Strength/Use: Will improve BUE strength to 4/5 for BADLs. Other: Will demonstrate F.A.T. to >15 min for light BADLs w/ minimal SOB or pain. [facility] Goals Days: 20 Mobility for ADL's: Will demonstrate safe functional transfers for BADLs w/ r ollator w/ Mod Ind Dressing: Will perform UB and LB dressing with set up. Upper Ext. Strength/Use: Will improve BUE strength to 5/5 for BADLs. Other: Will demonstrate F.A.T. to >20 min for BADLs w/ minimal SOB or pain. - PATIENT GOALS Patient/Family Goals: To go home Goals Discussed with Patient/Family: Yes Rehabilitation Potential: Good Justification for Potential: Higher PLOF, motivated to return home, supportive family Weakness and Barriers: None - PLAN Suggested Treatment Plan: Therapeutic Activity, Self Care Training, Therapeutic Ex with HEP, Patient Education - FREQUENCY AND DURATION OT: 5x/wk x hospital stay Expected Continuation of Care at Discharge: Home, Home Health
[2022-03-31] MEDS: PULMICORT NEB TX 0.5 MG NEB SCH (20:19)
[2022-03-31] MEDS: COREG TAB 3.125 MG PO SCH (20:57)
[2022-03-31] MEDS: LASIX PO SCH (20:58)
[2022-03-31] MEDS: ELIQUIS PO SCH (20:59)
[2022-03-31] MEDS: LIPITOR TAB 10 MG PO SCH (20:59)
[2022-03-31] MEDS: MICRO K EXTEN CAP 10 MEQ PO SCH (21:00)
[2022-04-01] MEDS: DUONEB 0.5 MG/3 MG (3 mL) NEB SCH ×6 (00:55→20:54)
[2022-04-01] MEDS: PULMICORT NEB TX 0.5 MG NEB SCH ×2 (08:34→20:54)
[2022-04-01] MEDS: COREG TAB 3.125 MG PO SCH ×2 (08:59→20:11)
[2022-04-01] MEDS: ELIQUIS PO SCH ×2 (09:00→20:11)
[2022-04-01] MEDS: LASIX PO SCH ×2 (09:00→20:10)
[2022-04-01] MEDS: MICRO K EXTEN CAP 10 MEQ PO SCH ×2 (09:00→20:10)
[2022-04-01] MEDS: LEVAQUIN TAB 500 MG PO SCH (09:00)
[2022-04-01] MEDS: LIPITOR TAB 10 MG PO SCH (20:10)
[2022-04-01] MEDS: CHLORASEPTIC SPRAY MT PRN (20:24)
[2022-04-02] MEDS: DUONEB 0.5 MG/3 MG (3 mL) NEB SCH ×6 (00:15→21:05)
[2022-04-02] MEDS: LASIX PO SCH ×2 (08:32→21:29)
[2022-04-02] MEDS: LEVAQUIN TAB 500 MG PO SCH (08:32)
[2022-04-02] MEDS: ELIQUIS PO SCH ×2 (08:32→21:28)
[2022-04-02] MEDS: COREG TAB 3.125 MG PO SCH ×2 (08:32→21:28)
[2022-04-02] MEDS: MICRO K EXTEN CAP 10 MEQ PO SCH ×2 (08:32→21:28)
[2022-04-02] MEDS: PULMICORT NEB TX 0.5 MG NEB SCH ×2 (09:25→21:05)
[2022-04-02] MEDS ORDERED: ROBITUSSIN DM PO PRN (11:24)
[2022-04-02] MEDS: LIPITOR TAB 10 MG PO SCH (21:28)
[2022-04-02] MEDS: CHLORASEPTIC SPRAY MT PRN (23:00)
[2022-04-03] MEDS: DUONEB 0.5 MG/3 MG (3 mL) NEB SCH ×6 (00:21→21:21)
[2022-04-03 06:10] LABS: BASOPHILS % (AUTO) 0.3 % (0.2-1.0); EOSINOPHILS # (AUTO) 0.2 x10^3/uL (0.0-0.2); EOSINOPHILS % (AUTO) 1.9 % (0.9-2.9); HEMATOCRIT 23.2 % (36.0-47.0); HEMOGLOBIN 7.7 g/dL (12.0-16.0); LYMPHOCYTES # (AUTO) 1.2 X10^3/uL (1.3-2.9); LYMPHOCYTES % (AUTO) 11.9 % (21.0-51.0); MEAN CORPUSCULAR HEMOGLOBIN 26.9 pg (27.0-34.0); MEAN CORPUSCULAR HGB CONC 33.2 g/dL (33.0-35.0); MEAN CORPUSCULAR VOLUME 81.2 fL (80.0-100.0); MEAN PLATELET VOLUME 8.5 fL (7.4-11.0); MONOCYTES # (AUTO) 1.4 x10^3/uL (0.3-0.8); MONOCYTES % (AUTO) 13.8 % (0.0-13.0); NEUTROPHILS # (AUTO) 7.2 x10^3/uL (2.2-4.8); NEUTROPHILS % (AUTO) 72.1 % (42.0-75.0); RED BLOOD COUNT 2.85 X10^6/uL (3.5-5.4)
[2022-04-03 06:35] LABS: ALANINE AMINOTRANSFERASE 10 Units/L (12-78); ALBUMIN 2.8 g/dL (3.4-5.0); ALKALINE PHOSPHATASE 47 Units/L (46-116); ASPARTATE AMINO TRANSFERASE 11 Units/L (15-37); BLOOD UREA NITROGEN 11 mg/dL (7-18); CALCIUM 8.3 mg/dL (8.5-10.1); CARBON DIOXIDE 34.3 mmol/L (21-32); CHLORIDE 99 mmol/L (98-107); COR CA(FOR HYPOALB) 9.3 mg/dL (8.5-10.1); CREATININE 0.56 mg/dL (0.55-1.02); SODIUM 140 mmol/L (136-145); TOTAL PROTEIN 5.8 g/dL (6.4-8.2); eGFR NON BLACK RACES > 60 (>60)
[2022-04-03 06:45] LABS: ANISOCYTOSIS 1+; PLATELET MORPHOLOGY COMMENT NORMAL (NORMAL)
[2022-04-03 06:46] LABS: HYPOCHROMASIA SLIGHT
--- NOTE | 2022-04-03 07:23 | RAD ---
HISTORYSOBSTUDYCHEST, 1 [id number]/02/2022.TECHNIQUEAP view of the chestFINDINGSCardiac and mediastinal contours are within normal limits. Moderate atherosclerotic plaque at the aortic knob. Similar appearing right base pleural parenchymal opacity. Lungs are hyperexpanded. Blunted left costophrenic sulcus as well. No pneumothoraxIMPRESSIONCOPD. Stable right base pleural parenchymal opacity consistent with pleural effusion and atelectasis versus pneumonia. Blunted left costophrenic sulcus may be due to pleural effusion or pleural parenchymal scarring.Electronically signed by: Angelo Villa (April 03, 2022 07:21:34)
[2022-04-03] MEDS: COREG TAB 3.125 MG PO SCH ×2 (09:04→20:40)
[2022-04-03] MEDS: LASIX PO SCH ×2 (09:04→20:41)
[2022-04-03] MEDS: ELIQUIS PO SCH ×2 (09:04→20:41)
[2022-04-03] MEDS: LEVAQUIN TAB 500 MG PO SCH (09:04)
[2022-04-03] MEDS: MICRO K EXTEN CAP 10 MEQ PO SCH ×2 (09:04→20:41)
[2022-04-03] MEDS: PULMICORT NEB TX 0.5 MG NEB SCH ×2 (09:35→21:21)
[2022-04-03] MEDS ORDERED: NS 250 ML IV 250 ML IV PRN (12:07)
[2022-04-03] MEDS ORDERED: BENADRYL CAP/TAB 25 MG PO PRN (12:13)
[2022-04-03 19:07] LABS: HEMATOCRIT 29.3 % (36.0-47.0)
[2022-04-03 19:11] LABS: HEMOGLOBIN 10.1 g/dL (12.0-16.0)
[2022-04-03] MEDS: LIPITOR TAB 10 MG PO SCH (20:41)
[2022-04-04] MEDS: DUONEB 0.5 MG/3 MG (3 mL) NEB SCH ×6 (00:30→20:35)
[2022-04-04 01:49] LABS: HEMATOCRIT 33.9 % (36.0-47.0); HEMOGLOBIN 11.6 g/dL (12.0-16.0)
[2022-04-04] MEDS: LEVAQUIN TAB 500 MG PO SCH (08:25)
[2022-04-04] MEDS: ELIQUIS PO SCH ×2 (08:25→20:24)
[2022-04-04] MEDS: COREG TAB 3.125 MG PO SCH ×2 (08:25→20:24)
[2022-04-04] MEDS: LASIX PO SCH ×2 (08:25→20:24)
[2022-04-04] MEDS: MICRO K EXTEN CAP 10 MEQ PO SCH ×2 (08:25→20:25)
[2022-04-04] MEDS: PULMICORT NEB TX 0.5 MG NEB SCH ×2 (09:09→20:35)
--- NOTE | 2022-04-04 11:24 | PCM.PROG ---
Progress Note - Progress Note for Day of Date of Exam: 04/03/22 - Subjective Subjective: IS CURRENTLY SWINGBED STATUS FOR PHYSICAL THERAPY AND REHABILITATION. SHE WAS RECENTLY INPATIENT STATUS FOR TREATMENT OF RIGHT SIDED PNEUMOTHORAX, ANEMIA, COPD EXACERBATION, AND PNEUMONIA. SHE CONTINUES TO RECEIVE ANTIBIOTICS FOR PNEUMONIA. TODAY, SHE IS ALERT AND ORIENTED, LYING IN BED ON MORNING ROUNDS. SHE CONTINUES WITH COMPLAINTS OF SHORTNESS OF BREATH AND GENERALIZED WEAKNESS. SHORTNESS OF BREATH IS SLIGHTLY WORSE TODAY. SHE ALSO REPORTS DIZZINESS WHEN STANDING. SHE IS CURRENTLY UTILIZING OXYGEN VIA NASAL CANNULA AT 2 LPM. ON EXAMINATION, HEART IS REGULAR IN RATE AND RHYTHM. BILATERAL LUNGS NOTED WITH DIMINISHED LUNG SOUNDS THROUGHOUT. HER VITALS THIS MORNING ARE: 98.1-84-25-97%-105/51. LABS WERE OBTAINED. ABNORMAL LAB VALUES INCLUDED THE FOLLOWING: RBC 2.85, HGB 7.7, HCT 23.2, POTASSIUM 3.3, CARBON DIOXIDE 34.3, CALCIUM 8.3, AST 11, ALT 10, TOTAL PROTEIN 5.8, ALBUMIN 2.8. A CHEST XRAY WAS OBTAINED AND REVEALED: COPD. Stable right base pleural parenchymal opacity consistent with pleural effusion and atelectasis versus pneumonia. Blunted left costophrenic sulcus may be due to pleural effusion or pleural parenchymal scarring. SHE IS CURRENTLY RECEIVING LEVAQUIN 500MG PO DAILY, DUONEBS QID, PULMICORT NEBS BID, ROBITUSSIN DM 10ML PO QID PRN, CHLORASEPTIC SPRAY 2 SPRAY Q2H PRN, MILK OF MAGNESIA 15ML PO QID, COLACE 100MG PO BID, MIRALAX 17G PO DAILY, AND HER HOME MEDICATIONS WERE RESUMED. WE WILL CONTINUE WITH CURRENT PLAN OF CARE TODAY. WE WILL TRANSFUSE 2 UNITS OF PRBC. SHE HAS BEEN COOPERATIVE WITH PHYSICAL THERAPY. THEY WILL CONTINUE TO WORK WITH HER DAILY. OTHERWISE, WE PLAN TO REPEAT LABS 2-3 TIMES A WEEK AND MAKE CHANGES ACCORDINGLY. TIME SPENT ON CLINICAL ASSESSMENT, REVIEWING LABS AND IMAGING, DECISION MAKING, AND DOCUMENTATION GREATER THAN 45 MINUTES. - Past Medical Family Social History Past Med/Fam/Surg Hx: No changes since H&P Allergies: Allergies codeine Allergy (Verified 09/24/21 07:06) - Review of Systems ROS: No change since H&P - Vital Signs and I&O's Vital Signs: Temperature 97.2 F Pulse Rate [Left Radial] 81 Pulse Rate 85 Respiratory Rate 22 Blood Pressure [Right Arm] 128/57 Blood Pressure 118/74 O2 Sat by Pulse Oximetry 96 Intake and Output: Intake & Output 04/01/22 04/02/22 04/03/22 04/04/22 11:59 11:59 11:59 11:59 Intake Total 490 / 490 960 / 960 1030 / 1030 1850 / 1850 Balance 490 / 490 960 / 960 1030 / 1030 1850 / 1850 - Physical Exam Oriented: Normal Eyes: Normal Ear: Normal Nose: Normal Throat: Normal Respiratory: Diminished Cardiovascular: Normal : Normal Auscultation: Bowel Sounds: Normal Palpation: Normal Tenderness: Normal Skin: Normal Musculoskeletal: Normal Psychiatric: Normal Mood Description: Calm Affect: Normal Speech Pattern: Clear, Appropriate - Laboratory and Diagnostics Result Diagrams: 04/04/22 01:30 04/03/22 05:20 Labs: Laboratory WBC 10.0 X10^3/uL (3.6-10.0) 04/03/22 05:20 RBC 2.85 X10^6/uL (3.5-5.4) L 04/03/22 05:20 Hgb 11.6 g/dL (12.0-16.0) L 04/04/22 01:30 Hct 33.9 % (36.0-47.0) L 04/04/22 01:30 MCV 81.2 fL (80.0-100.0) 04/03/22 05:20 MCH 26.9 pg (27.0-34.0) L 04/03/22 05:20 MCHC 33.2 g/dL (33.0-35.0) 04/03/22 05:20 RDW 22.0 % (11.6-16.5) H 04/03/22 05:20 Plt Count 288 X10^3/uL (150.0-450.0) 04/03/22 05:20 Plt Count Comment Adequate (ADEQUATE) 04/03/22 05:20 MPV 8.5 fL (7.4-11.0) 04/03/22 05:20 Neut % (Auto) 72.1 % (42.0-75.0) 04/03/22 05:20 Lymph % (Auto) 11.9 % (21.0-51.0) L 04/03/22 05:20 [place] % (Auto) 13.8 % (0.0-13.0) H 04/03/22 05:20 Eos % (Auto) 1.9 % (0.9-2.9) 04/03/22 05:20 Baso % (Auto) 0.3 % (0.2-1.0) 04/03/22 05:20 Neut # (Auto) 7.2 x10^3/uL (2.2-4.8) H 04/03/22 05:20 Lymph # (Auto) 1.2 X10^3/uL (1.3-2.9) L 04/03/22 05:20 [place] # (Auto) 1.4 x10^3/uL (0.3-0.8) H 04/03/22 05:20 Eos # (Auto) 0.2 x10^3/uL (0.0-0.2) 04/03/22 05:20 Baso # (Auto) 0.0 X10^3/uL (0.0-0.1) 04/03/22 05:20 Absolute Nucleated RBC 0.0 /100WBC 04/03/22 05:20 Plt Morphology Comment Normal (NORMAL) 04/03/22 05:20 RBC Morphology Abnormal (NORMAL) A 04/03/22 05:20 Hypochromasia Slight A 04/03/22 05:20 Anisocytosis 1+ A 04/03/22 05:20 Sodium 140 mmol/L (136-145) 04/03/22 05:20 Corrected Sodium TNP 04/03/22 05:20 Potassium 3.3 mmol/L (3.5-5.1) L 04/03/22 05:20 Chloride 99 mmol/L (98-107) 04/03/22 05:20 Carbon Dioxide 34.3 mmol/L (21-32) H 04/03/22 05:20 BUN 11 mg/dL (7-18) 04/03/22 05:20 Creatinine 0.56 mg/dL (0.55-1.02) 04/03/22 05:20 Est GFR (MDRD) Af Amer > 60 (>60) 04/03/22 05:20 Est GFR (MDRD) Non-Af > 60 (>60) 04/03/22 05:20 Glucose 89 mg/dL (65-99) 04/03/22 05:20 Calcium 8.3 mg/dL (8.5-10.1) L 04/03/22 05:20 Corrected Calcium 9.3 mg/dL (8.5-10.1) 04/03/22 05:20 Total Bilirubin 0.50 mg/dL (0.2-1.0) 04/03/22 05:20 AST 11 Units/L (15-37) L 04/03/22 05:20 ALT 10 Units/L (12-78) L 04/03/22 05:20 Alkaline Phosphatase 47 Units/L (46-116) 04/03/22 05:20 Total Protein 5.8 g/dL (6.4-8.2) L 04/03/22 05:20 Albumin 2.8 g/dL (3.4-5.0) L 04/03/22 05:20 Globulin 3.0 g/dL (2.5-4.5) 04/03/22 05:20 Albumin/Globulin Ratio 0.9 Ratio (1.1-2.1) L 04/03/22 05:20 Blood Type A POSITIVE 04/03/22 09:32 Antibody Screen Negative 04/03/22 09:32 Crossmatch See Detail 04/03/22 09:32 - Plan (1) Pneumonia Status: Acute Qualifiers: Pneumonia type: due to unspecified organism Laterality: right Lung location: unspecified part of lung Qualified Code(s): J18.9 - Pneumonia, unspecified organism Plan: LEVAQUIN 500MG PO DAILY, DUONEBS QID, PULMICORT NEBS BID, ROBITUSSIN DM 10ML PO QID PRN, CHLORASEPTIC SPRAY 2 SPRAY Q2H PRN, MILK OF MAGNESIA 15ML PO QID, COLACE 100MG PO BID, MIRALAX 17G PO DAILY, AND HER HOME MEDICATIONS WERE RESUMED. SUPPLEMENTAL OXYGEN (2) Status post pneumothorax Status: Acute (3) Anemia Status: Acute Qualifiers: Anemia type: iron deficiency Iron deficiency anemia type: chronic blood loss Qualified Code(s): D50.0 - Iron deficiency anemia secondary to blood loss (chronic) Plan: TRANSFUSE 2 UNITS PRBC (4) COPD exacerbation Status: Chronic (5) Generalized weakness Status: Acute
[2022-04-04] MEDS: MIRALAX POWDER (1 DOSE 17 G) PO SCH (11:28)
[2022-04-04] MEDS: COLACE CAP 100 MG PO SCH ×2 (11:30→20:21)
[2022-04-04] MEDS: MILK OF MAGNESIA PO SCH ×4 (11:31→20:25)
[2022-04-04] MEDS: LIPITOR TAB 10 MG PO SCH (20:25)
[2022-04-05] MEDS: DUONEB 0.5 MG/3 MG (3 mL) NEB SCH ×6 (00:50→20:45)
[2022-04-05] MEDS: ELIQUIS PO SCH ×2 (08:36→20:51)
[2022-04-05] MEDS: MICRO K EXTEN CAP 10 MEQ PO SCH ×2 (08:36→20:52)
[2022-04-05] MEDS: COREG TAB 3.125 MG PO SCH ×2 (08:36→20:51)
[2022-04-05] MEDS: MIRALAX POWDER (1 DOSE 17 G) PO SCH (08:36)
[2022-04-05] MEDS: LASIX PO SCH ×2 (08:37→20:52)
[2022-04-05] MEDS: COLACE CAP 100 MG PO SCH ×2 (08:37→20:51)
[2022-04-05] MEDS: LEVAQUIN TAB 500 MG PO SCH (08:37)
[2022-04-05] MEDS: MILK OF MAGNESIA PO SCH ×4 (08:37→20:52)
[2022-04-05] MEDS: PULMICORT NEB TX 0.5 MG NEB SCH ×2 (09:03→20:45)
[2022-04-05] MEDS: LIPITOR TAB 10 MG PO SCH (20:52)
[2022-04-06] MEDS: DUONEB 0.5 MG/3 MG (3 mL) NEB SCH ×6 (01:32→21:10)
[2022-04-06 05:47] LABS: BASOPHILS % (AUTO) 0.5 % (0.2-1.0); EOSINOPHILS # (AUTO) 0.2 x10^3/uL (0.0-0.2); HEMATOCRIT 36.4 % (36.0-47.0); HEMOGLOBIN 12.2 g/dL (12.0-16.0); LYMPHOCYTES # (AUTO) 1.1 X10^3/uL (1.3-2.9); LYMPHOCYTES % (AUTO) 13.6 % (21.0-51.0); MEAN CORPUSCULAR HEMOGLOBIN 28.1 pg (27.0-34.0); MEAN CORPUSCULAR HGB CONC 33.5 g/dL (33.0-35.0); MEAN CORPUSCULAR VOLUME 83.7 fL (80.0-100.0); MEAN PLATELET VOLUME 8.1 fL (7.4-11.0); MONOCYTES # (AUTO) 0.9 x10^3/uL (0.3-0.8); MONOCYTES % (AUTO) 10.7 % (0.0-13.0); NEUTROPHILS # (AUTO) 5.9 x10^3/uL (2.2-4.8); NEUTROPHILS % (AUTO) 73.2 % (42.0-75.0); RED BLOOD COUNT 4.35 X10^6/uL (3.5-5.4); RED CELL DISTRIBUTION WIDTH 18.7 % (11.6-16.5)
[2022-04-06 05:57] LABS: ALANINE AMINOTRANSFERASE 8 Units/L (12-78); ALBUMIN 2.8 g/dL (3.4-5.0); ALKALINE PHOSPHATASE 62 Units/L (46-116); ASPARTATE AMINO TRANSFERASE 13 Units/L (15-37); BLOOD UREA NITROGEN 15 mg/dL (7-18); CALCIUM 8.9 mg/dL (8.5-10.1); CARBON DIOXIDE 36.2 mmol/L (21-32); CHLORIDE 100 mmol/L (98-107); COR CA(FOR HYPOALB) 9.9 mg/dL (8.5-10.1); CREATININE 0.72 mg/dL (0.55-1.02); SODIUM 139 mmol/L (136-145); TOTAL PROTEIN 6.4 g/dL (6.4-8.2); eGFR NON BLACK RACES > 60 (>60)
--- NOTE | 2022-04-06 06:59 | RAD ---
HISTORYSOBSTUDYPortable AP [id number]/05/2022FINDINGSSimilar /stable cardiac size. Indistinct airspace density with suspect pleural fluid again noted at the right base. The left lung is relatively clear. No pneumothorax seen.IMPRESSIONNo change. Stable findings at the right base concerning for pneumonia and probable pleural effusion.Electronically signed by: JACKIE REED (April 06, 2022 06:57:26)
[2022-04-06] MEDS: PULMICORT NEB TX 0.5 MG NEB SCH ×2 (08:29→21:10)
[2022-04-06] MEDS: LASIX PO SCH ×2 (09:54→20:58)
[2022-04-06] MEDS: MICRO K EXTEN CAP 10 MEQ PO SCH ×2 (09:55→20:58)
[2022-04-06] MEDS: MIRALAX POWDER (1 DOSE 17 G) PO SCH (09:55)
[2022-04-06] MEDS: ELIQUIS PO SCH ×2 (09:55→20:58)
[2022-04-06] MEDS: LEVAQUIN TAB 500 MG PO SCH (09:55)
[2022-04-06] MEDS: COLACE CAP 100 MG PO SCH ×2 (09:56→20:57)
[2022-04-06] MEDS: COREG TAB 3.125 MG PO SCH ×2 (09:56→20:57)
[2022-04-06] MEDS: MILK OF MAGNESIA PO SCH ×4 (12:48→20:58)
[2022-04-06] MEDS: LIPITOR TAB 10 MG PO SCH (20:58)
[2022-04-07] MEDS: DUONEB 0.5 MG/3 MG (3 mL) NEB SCH ×3 (00:15→09:05)
[2022-04-07 08:09] VITALS: BP 121/57
[2022-04-07] MEDS: LEVAQUIN TAB 500 MG PO SCH (09:02)
[2022-04-07] MEDS: MIRALAX POWDER (1 DOSE 17 G) PO SCH (09:03)
[2022-04-07] MEDS: MILK OF MAGNESIA PO SCH (09:03)
[2022-04-07] MEDS: MICRO K EXTEN CAP 10 MEQ PO SCH (09:03)
[2022-04-07] MEDS: LASIX PO SCH (09:03)
[2022-04-07] MEDS: COLACE CAP 100 MG PO SCH (09:03)
[2022-04-07] MEDS: COREG TAB 3.125 MG PO SCH (09:04)
[2022-04-07] MEDS: ELIQUIS PO SCH (09:04)
[2022-04-07] MEDS: PULMICORT NEB TX 0.5 MG NEB SCH (09:05)
== END 2022-04-07 12:35 | disposition home health service (06) | DRG 194 ==
LOC: MED/SURG 10:50
PROVIDERS: ADMIT Internal Medicine; ATTEND Internal Medicine

== ENCOUNTER 2023-07-09 13:26 | Inpatient (IN) ==
--- NOTE | 2023-07-09 13:44 | DR.SOBA ---
HPI Time Seen Time Seen by Provider: 07/09/23 13:43 Complaints Chief Complaint Doctors Comments: 88 y/o female brought in via EMS for evaluation. Having worsening weakness over the past several weeks. Worse with standing up. + h/o COPD, feeling short of breath. Not coughing, denies nausea, vomiting, diarrhea. + urinary frequency, but on lasix (no change). Denies chest pain. No fever, chills. Reviewed Nurses Notes Reviewed: Yes Source History Provided: Patient Mode of Arrival Mode of Arrival: EMS PMH PMH Past Medical History: COPD Past Surgical History: Yes Surgical History: Hysterectomy and Ortho Surgery Family History Family Medical History: Cancer Social History Type of Tobacco Use: Vapes Alcohol Use: None Do you use any recreational Drugs:: No ROS Review of Systems Constitutional: Malaise and Weakness Eyes: No Symptoms Reported ENTM: No Symptoms Reported Respiratoy: Short of Breath Cardiovascular: No Symptoms Reported Gastrointestinal/Abdominal: No Symptoms Reported Genitourinary: No Symptoms Reported Neurological: Weakness Musculoskeletal: No Symptoms Reported Integumentary: No Symptoms Reported Hematologic/Lymphatic: No Symptoms Reported All Other Systems: Reviewed and Negative PE Vital Signs Vitals: Vital Signs Temperature 98.0 F Pulse Rate 74 Pulse Rate 76 Pulse Rate 75 Pulse Rate 76 Pulse Rate 80 Pulse Rate 82 Pulse Rate 83 Pulse Rate 84 Pulse Rate 80 Pulse Rate 81 Pulse Rate 89 Pulse Rate 79 Pulse Rate 75 Pulse Rate 78 Pulse Rate 69 Pulse Rate 72 Pulse Rate 69 Pulse Rate 69 Pulse Rate 75 Pulse Rate 76 Pulse Rate 79 Respiratory Rate 24 Respiratory Rate 30 Respiratory Rate 25 Respiratory Rate 26 Respiratory Rate 27 Respiratory Rate 34 Respiratory Rate 32 Respiratory Rate 37 Respiratory Rate 27 Respiratory Rate 26 Respiratory Rate 27 Respiratory Rate 29 Respiratory Rate 28 Respiratory Rate 33 Respiratory Rate 32 Respiratory Rate 36 Respiratory Rate 37 Respiratory Rate 32 Respiratory Rate 24 Respiratory Rate 26 Respiratory Rate 28 Blood Pressure 102/50 Blood Pressure 99/47 Blood Pressure 113/49 Blood Pressure 113/49 Blood Pressure 113/49 Blood Pressure 119/54 Blood Pressure 119/54 Blood Pressure 111/53 Blood Pressure 120/48 Blood Pressure 125/51 Blood Pressure 114/53 Blood Pressure 125/58 Blood Pressure 125/58 O2 Sat by Pulse Oximetry 100 O2 Sat by Pulse Oximetry 84 O2 Sat by Pulse Oximetry 100 O2 Sat by Pulse Oximetry 100 O2 Sat by Pulse Oximetry 100 O2 Sat by Pulse Oximetry 92 O2 Sat by Pulse Oximetry 93 O2 Sat by Pulse Oximetry 98 O2 Sat by Pulse Oximetry 100 O2 Sat by Pulse Oximetry 100 O2 Sat by Pulse Oximetry 100 O2 Sat by Pulse Oximetry 100 O2 Sat by Pulse Oximetry 100 O2 Sat by Pulse Oximetry 100 O2 Sat by Pulse Oximetry 100 O2 Sat by Pulse Oximetry 100 O2 Sat by Pulse Oximetry 100 O2 Sat by Pulse Oximetry 100 O2 Sat by Pulse Oximetry 100 O2 Sat by Pulse Oximetry 98 General General Appearance: Alert and In No Apparent Distress Eyes Eye exam: PERRL and EOMI ENT ENT Exam: Normal Oropharynx and Mucous Membranes Moist Neck Neck Exam: Normal Inspection Respiratory Respiratory Exam: Normal Lung Sounds Bilat; negative Accessory Muscle Use or Respiratory Distress Cardiovascular Cardiovascular Exam: Regular Rate, Normal Rhythm and Normal Heart Sounds Abdominal Exam Abdominal Exam: Normal Bowel Sounds and Soft; negative Tenderness Extremities Extremities Exam: Normal Inspection; negative Edema Neurologic Neurological Exam: Alert, Oriented X3 and CN II-XII Intact; negative Motor Sensory Deficit Skin Skin Exam: Warm and Dry COURSE Treatment Treatment: 88 y/o female comes in with worsening weakness, some dyspnea. Has COPD. W/u initiated. Labs show marked anemia, Hgb 5.1. No obvious blood loss. Will add stool study for blood. CXR - with increased markings/infiltrate of R side, will blunting of R CP angle. CT chest with contrast done - + larger R pleural effusion. + large, consolidated area of R lateral middle lobe, possbile pneumonia, but concerning for lung mass/neoplasm. Recommend admission, with cvoer with IV rocephin. PT ordered for 2U PRBCs. Pt does not have an MD with our hospital, discussed with Dr Posada, accepts the admission. ROR Labs Reviewed Laboratory Results Reviewed?: Yes 07/09/23 14:20 07/09/23 13:25 Laboratory: WBC 6.0 X10^3/uL (3.6-10.0) 07/09/23 14:20 RBC 2.28 X10^6/uL (3.5-5.4) L 07/09/23 14:20 Hgb 5.1 g/dL (12.0-16.0) L* 07/09/23 14:20 Hct 16.7 % (36.0-47.0) L* 07/09/23 14:20 MCV 73.1 fL (80.0-100.0) L 07/09/23 14:20 MCH 22.3 pg (27.0-34.0) L 07/09/23 14:20 MCHC 30.5 g/dL (33.0-35.0) L 07/09/23 14:20 RDW 19.1 % (11.6-16.5) H 07/09/23 14:20 Plt Count 354 X10^3/uL (150.0-450.0) 07/09/23 14:20 Plt Count Comment Adequate (ADEQUATE) 07/09/23 14:20 MPV 7.9 fL (7.4-11.0) 07/09/23 14:20 Neut % (Auto) 69.2 % (42.0-75.0) 07/09/23 14:20 Lymph % (Auto) 19.7 % (21.0-51.0) L 07/09/23 14:20 Lamb % (Auto) 6.9 % (0.0-13.0) 07/09/23 14:20 Eos % (Auto) 3.9 % (0.9-2.9) H 07/09/23 14:20 Baso % (Auto) 0.3 % (0.2-1.0) 07/09/23 14:20 Neut # (Auto) 4.1 x10^3/uL (2.2-4.8) 07/09/23 14:20 Lymph # (Auto) 1.2 X10^3/uL (1.3-2.9) L 07/09/23 14:20 Lamb # (Auto) 0.4 x10^3/uL (0.3-0.8) 07/09/23 14:20 Eos # (Auto) 0.2 x10^3/uL (0.0-0.2) 07/09/23 14:20 Baso # (Auto) 0.0 X10^3/uL (0.0-0.1) 07/09/23 14:20 Absolute Nucleated RBC 0.1 /100WBC 07/09/23 14:20 Plt Morphology Comment Normal (NORMAL) 07/09/23 14:20 RBC Morphology Abnormal (NORMAL) A 07/09/23 14:20 Hypochromasia 2+ A 07/09/23 14:20 Anisocytosis Slight A 07/09/23 14:20 Microcytosis Slight A 07/09/23 14:20 Sodium 137 mmol/L (136-145) 07/09/23 13:25 Corrected Sodium 139 mmol/L (136-145) 07/09/23 13:25 Potassium 3.0 mmol/L (3.5-5.1) L 07/09/23 13:25 Chloride 96 mmol/L (98-107) L 07/09/23 13:25 Carbon Dioxide 38.0 mmol/L (21-32) H 07/09/23 13:25 BUN 16 mg/dL (7-18) 07/09/23 13:25 Creatinine 0.68 mg/dL (0.55-1.02) 07/09/23 13:25 Est GFR (MDRD) Af Amer > 60 (>60) 07/09/23 13:25 Est GFR (MDRD) Non-Af > 60 (>60) 07/09/23 13:25 Glucose 191 mg/dL (65-99) H 07/09/23 13:25 Lactic Acid 1.9 mmol/L (0.4-2.0) 07/09/23 14:15 Calcium 8.5 mg/dL (8.5-10.1) 07/09/23 13:25 Corrected Calcium 9.8 mg/dL (8.5-10.1) 07/09/23 13:25 Total Bilirubin 0.20 mg/dL (0.2-1.0) 07/09/23 13:25 AST 18 Units/L (15-37) 07/09/23 13:25 ALT 8 Units/L (12-78) L 07/09/23 13:25 Alkaline Phosphatase 69 Units/L (46-116) 07/09/23 13:25 Troponin I High Sens 13.6 ng/L (4.0-60.0) 07/09/23 13:25 B-Natriuretic Peptide 165 pg/mL (0-79) H 07/09/23 13:25 Total Protein 6.0 g/dL (6.4-8.2) L 07/09/23 13:25 Albumin 2.4 g/dL (3.4-5.0) L 07/09/23 13:25 Globulin 3.6 g/dL (2.5-4.5) 07/09/23 13:25 Albumin/Globulin Ratio 0.7 Ratio (1.1-2.1) L 07/09/23 13:25 Blood Type A POSITIVE 07/09/23 14:20 Antibody Screen Negative 07/09/23 14:20 Crossmatch See Detail 07/09/23 14:20 Marked anemia XRAY XRAY Interpreted by: Both X-ray Results: seen comments under "Course" EKG Rate: 70 Thelma: LAD Rhythm: NSR ST: Nonsp Opioid Opioid Risk Tool Age (Burak box if 16-45): No History of Preadolescent Sexual Abuse: No Total: 0 Total Score Risk Category: Low Risk Copyright: Kahlil GAINES predicting aberrant behaviors Discharge Plan Diagnosis Discharge Problem: Symptomatic anemia, Mass of right lung, Pleural effusion on right Discharge Plan Patient Disposition: 09 ADMITTED INPATIENT Condition: Stable Orders to Discharge Patient Discharge Orders: Transfer (Routine); Ordered 07/09/23 Ordered By: Terry Schneider
[2023-07-09 13:59] VITALS: BMI 20.7
[2023-07-09] MEDS ORDERED: ROCEPHIN VIAL 1 GRAM 1 G in NS 100 ML IV 100 ML IV ONE (14:02)
[2023-07-09] MEDS ORDERED: ROCEPHIN VIAL 1 GRAM ONE (14:16)
[2023-07-09] MEDS ORDERED: NS 100 ML IV 100 ML ONE (14:16)
--- NOTE | 2023-07-09 14:25 | EKG ---
Test Reason : weakness Blood Pressure : */* mmHG Vent. Rate : 70 BPM Atrial Rate : 70 BPM P-R Int : 158 ms QRS Dur : 54 ms QT Int : 368 ms P-R-T Axes : 42 -40 2 degrees QTc Int : 397 ms Normal sinus rhythm Left axis deviation Low voltage QRS Nonspecific ST and T wave abnormality Abnormal ECG No previous ECGs available Confirmed by Cristopher Tyson ([id number]) on 07/13/2023 7:25:32 AM Referred By: Confirmed By: Cristopher Tyson
[2023-07-09 14:35] LABS: BLOOD UREA NITROGEN 16 mg/dL (7-18); CALCIUM 8.5 mg/dL (8.5-10.1); CHLORIDE 96 mmol/L (98-107); COR NA(FOR HYPERGLY) 139 mmol/L (136-145); CREATININE 0.68 mg/dL (0.55-1.02); GLUCOSE 191 mg/dL (65-99); SODIUM 137 mmol/L (136-145); eGFR NON BLACK RACES > 60 (>60)
[2023-07-09 14:37] LABS: BASOPHILS % (AUTO) 0.3 % (0.2-1.0); EOSINOPHILS # (AUTO) 0.2 x10^3/uL (0.0-0.2); EOSINOPHILS % (AUTO) 3.9 % (0.9-2.9); LYMPHOCYTES # (AUTO) 1.2 X10^3/uL (1.3-2.9); LYMPHOCYTES % (AUTO) 19.7 % (21.0-51.0); MEAN CORPUSCULAR HEMOGLOBIN 22.3 pg (27.0-34.0); MEAN CORPUSCULAR HGB CONC 30.5 g/dL (33.0-35.0); MEAN CORPUSCULAR VOLUME 73.1 fL (80.0-100.0); MEAN PLATELET VOLUME 7.9 fL (7.4-11.0); MONOCYTES # (AUTO) 0.4 x10^3/uL (0.3-0.8); MONOCYTES % (AUTO) 6.9 % (0.0-13.0); NEUTROPHILS # (AUTO) 4.1 x10^3/uL (2.2-4.8); NEUTROPHILS % (AUTO) 69.2 % (42.0-75.0); PLATELET COUNT 354 X10^3/uL (150.0-450.0); RED BLOOD COUNT 2.28 X10^6/uL (3.5-5.4); RED CELL DISTRIBUTION WIDTH 19.1 % (11.6-16.5)
[2023-07-09 14:42] LABS: HEMATOCRIT 16.7 % (36.0-47.0); HEMOGLOBIN 5.1 g/dL (12.0-16.0)
[2023-07-09] MEDS ORDERED: OMNIPAQUE 350 mg/mL 100 mL BTL 100 ML ONE (14:56)
[2023-07-09 15:08] LABS: ANISOCYTOSIS SLIGHT; HYPOCHROMASIA 2+; MICROCYTOSIS SLIGHT; PLATELET MORPHOLOGY COMMENT NORMAL (NORMAL)
[2023-07-09 15:29] LABS: ALANINE AMINOTRANSFERASE 8 Units/L (12-78); ALBUMIN 2.4 g/dL (3.4-5.0); ALKALINE PHOSPHATASE 69 Units/L (46-116); ASPARTATE AMINO TRANSFERASE 18 Units/L (15-37); COR CA(FOR HYPOALB) 9.8 mg/dL (8.5-10.1)
[2023-07-09] MEDS ORDERED: NS 250 ML IV 250 ML IV ONE ×4 (15:39→23:12)
--- NOTE | 2023-07-09 15:41 | CT ---
EXAM: CT CHEST WITH INTRAVENOUS CONTRASTHISTORY: Increased lung markings with effusion.TECHNIQUE: Spiral axial CT images are obtained through the chest with the administration of intravenous contrast. Additional coronal and sagittal reformatted images are reformatted.DOSIMETRY: Total DLP 81.3 mGycm; CTDI 5.02 mGyCOMPARISON: Chest CT dated September 24, 2021.FINDINGS:CARDIOVASCULAR: There is no evidence for pulmonary embolic disease. There is severe coronary atherosclerosis (especially LAD). The heart size is within normal limits. No pericardial effusion is seen. There is severe aortic atherosclerosis, without evidence for aortic aneurysm or dissection.MEDIASTINUM AND MATTHEW: No mass lesion, lymphadenopathy, emphysema, or abnormal fluid collection is seen.LUNGS: There is interval development of a large (approximately 5.3 cm transverse by 4 cm AP by 2 x 3.2 cm CC) consolidative infiltrate throughout the lateral segment of the right middle lobe, blunting of the parietal pleura, in keeping with acute pneumonia in the appropriate clinical setting. Recommend clinical correlation and appropriate follow-up evaluation to ensure complete clearance since neoplastic disease mimicking pneumonia cannot be entirely excluded. There is moderate to severe diffuse lung parenchymal emphysema, especially in the upper lung girard (centrilobular emphysema). There is interval development of a large right pleural effusion.CHEST WALL: There are no chest wall lesions seen. There is diffuse osteopenia. Mild multilevel DDD is seen throughout the middle and distal thoracic spine. There is a chronic stable anterior wedge compression fracture of the T12 vertebral body. The visualized bony structures are otherwise within normal limits. No axillary lymphadenopathy is noted.UPPER ABDOMEN: Limited views through the upper abdomen demonstrate no gross acute abnormality. Status post cholecystectomy.IMPRESSION:1. No evidence for pulmonary embolic disease.2. Severe aortic atherosclerosis; no aneurysm or dissection seen.3. Interval development of a large (approximately 5.3 cm transverse by 4 cm AP by 2 x 3.2 cm CC) consolidative infiltrate throughout the lateral segment of the right middle lobe, blunting of the parietal pleura, in keeping with acute pneumonia in the appropriate clinical setting. Recommend clinical correlation and appropriate follow-up evaluation to ensure complete clearance since neoplastic disease mimicking pneumonia cannot be entirely excluded.4. Interval development of a large right pleural effusion.5. Moderate to severe diffuse lung parenchymal emphysema, especially in the upper lung girard (centrilobular emphysema).6. Chronic stable anterior wedge compression fracture of the T12 vertebral body.Electronically signed by: Mica Arthur (Jul 09, 2023 15:40:30)
--- NOTE | 2023-07-09 16:16 | RAD ---
HISTORYRelevant Clinical Information SOBSTUDYCHNICO, 1 VIEWCOMPARISONMay 2021FINDINGSThe trachea is midline. The cardiac silhouette is enlarged but stable. The left lung appears clear. The right lung demonstrate right lower lobe pleural parenchymal opacity which appears worse compared to the previous exam from March of last year. This suggest acute pneumonia superimposed on chronic changes. The bony thorax is unremarkable.IMPRESSIONRight lower lobe pneumoniaElectronically signed by: KOBE MCWILLIAMS (Jul 09, 2023 16:15:13)
[2023-07-09] MEDS ORDERED: PULMICORT NEB TX 0.5 MG NEB SCH (21:00)
[2023-07-09] MEDS ORDERED: LEVAQUIN PREMIX IV 500 MG 500 MG/100 ML BAG IV SCH (21:00)
[2023-07-09] MEDS ORDERED: FORTAZ or TAZICEF VIAL INJ 1 G in NS 100 ML IV 100 ML IV SCH (21:00)
[2023-07-09] MEDS ORDERED: ULTRAM PO PRN ×2 (21:01→21:43)
[2023-07-09] MEDS: PULMICORT NEB TX 0.5 MG NEB SCH (21:10)
[2023-07-09] MEDS: DUONEB 0.5 MG/3 MG (3 mL) NEB SCH (21:10)
[2023-07-09] MEDS ORDERED: CONSULT PHARMACY - POTASSIUM & MAGNESIUM XX SCH (21:43)
[2023-07-09] MEDS ORDERED: ROCEPHIN VIAL 1 GRAM 1 G in NS 100 ML IV 100 ML IV SCH (21:43)
[2023-07-09] MEDS ORDERED: LIPITOR TAB 10 MG PO SCH (21:43)
[2023-07-09] MEDS ORDERED: DUONEB 0.5 MG/3 MG (3 mL) NEB SCH (22:00)
[2023-07-09] MEDS: MICRO K EXTEN CAP 10 MEQ PO SCH (22:19)
[2023-07-09] MEDS: LASIX PO SCH (22:19)
[2023-07-09] MEDS: COREG TAB 3.125 MG PO SCH (22:19)
[2023-07-09] MEDS: ELIQUIS PO SCH (22:49)
[2023-07-09] MEDS ORDERED: K-DUR TAB 20 MEQ PO ONE (23:00)
[2023-07-09] MEDS: LEVAQUIN PREMIX IV 500 MG 500 MG/100 ML BAG IV SCH (23:50)
[2023-07-10] MEDS: FORTAZ or TAZICEF VIAL INJ 1 G in NS 100 ML IV 100 ML IV SCH ×2 (00:10→10:02)
[2023-07-10 01:34] LABS: HEMATOCRIT 28.4 % (36.0-47.0)
[2023-07-10 01:38] LABS: HEMOGLOBIN 9.5 g/dL (12.0-16.0)
[2023-07-10 05:48] LABS: BASOPHILS % (AUTO) 0.3 % (0.2-1.0); EOSINOPHILS # (AUTO) 0.4 x10^3/uL (0.0-0.2); HEMATOCRIT 27.1 % (36.0-47.0); HEMOGLOBIN 9.2 g/dL (12.0-16.0); LYMPHOCYTES # (AUTO) 1.4 X10^3/uL (1.3-2.9); LYMPHOCYTES % (AUTO) 18.6 % (21.0-51.0); MEAN CORPUSCULAR HEMOGLOBIN 26.9 pg (27.0-34.0); MEAN CORPUSCULAR HGB CONC 34.1 g/dL (33.0-35.0); MEAN CORPUSCULAR VOLUME 78.7 fL (80.0-100.0); MEAN PLATELET VOLUME 8.2 fL (7.4-11.0); MONOCYTES # (AUTO) 0.7 x10^3/uL (0.3-0.8); NEUTROPHILS # (AUTO) 5.2 x10^3/uL (2.2-4.8); NEUTROPHILS % (AUTO) 67.1 % (42.0-75.0); PLATELET COUNT 293 X10^3/uL (150.0-450.0); RED BLOOD COUNT 3.44 X10^6/uL (3.5-5.4); RED CELL DISTRIBUTION WIDTH 18.4 % (11.6-16.5); WHITE BLOOD COUNT 7.7 X10^3/uL (3.6-10.0)
[2023-07-10 06:02] LABS: ALANINE AMINOTRANSFERASE 6 Units/L (12-78); ALBUMIN 2.3 g/dL (3.4-5.0); ALKALINE PHOSPHATASE 65 Units/L (46-116); ASPARTATE AMINO TRANSFERASE 22 Units/L (15-37); BLOOD UREA NITROGEN 15 mg/dL (7-18); CALCIUM 7.7 mg/dL (8.5-10.1); CARBON DIOXIDE 36.8 mmol/L (21-32); CHLORIDE 99 mmol/L (98-107); COR CA(FOR HYPOALB) 9.1 mg/dL (8.5-10.1); CREATININE 0.69 mg/dL (0.55-1.02); GLUCOSE 80 mg/dL (65-99); POTASSIUM 3.7 mmol/L (3.5-5.1); SODIUM 137 mmol/L (136-145); TOTAL PROTEIN 5.6 g/dL (6.4-8.2); eGFR NON BLACK RACES > 60 (>60)
[2023-07-10] MEDS ORDERED: CONSULT PHARMACY - POTASSIUM & MAGNESIUM XX SCH (07:00)
[2023-07-10] MEDS: PULMICORT NEB TX 0.5 MG NEB SCH ×2 (08:20→20:20)
[2023-07-10] MEDS: DUONEB 0.5 MG/3 MG (3 mL) NEB SCH ×4 (08:20→20:20)
[2023-07-10] MEDS ORDERED: COREG TAB 3.125 MG PO SCH (09:00)
[2023-07-10] MEDS ORDERED: LASIX PO SCH (09:00)
[2023-07-10] MEDS ORDERED: K-DUR TAB 20 MEQ PO SCH (10:00)
[2023-07-10] MEDS: ELIQUIS PO SCH (10:02)
[2023-07-10] MEDS: LASIX PO SCH ×2 (10:02→20:25)
[2023-07-10] MEDS: COREG TAB 3.125 MG PO SCH ×2 (10:02→20:25)
[2023-07-10] MEDS: MICRO K EXTEN CAP 10 MEQ PO SCH ×2 (10:03→20:25)
--- NOTE | 2023-07-10 12:01 | DR.H&P ---
H&P - History & Physical for Day of: H&P Date: 07/09/23 - Chief Complaint Chief Complaint: WEAKNESS, SOB - History of Present Illness History of Present Illness: IS A 88 YEAR OLD PATIENT OF OURS. SHE PRESENTED TO THE ER WITH COMPLIANTS OF INCREASING WEAKNESS AND SHORTNESS OF BREATH. SHE DENIES COUGH, CHEST PAIN, FEVER, CHILLS, NAUSEA, VOMIITNG, OR DIARRHEA. SHE DOES ALSO ADMIT TO URINARY FREQUENCY. SHE HAS A PMH OF COPD, CHF, ANEMIA, GERD, CHOLECYSTECTOMY, HYSTERECTOMY, AND RIGHT HIP REPLACEMENT. ON ARRIVAL TO THE ER, HER VITALS WERE: 98.0-79-28-98%-125/58. LABS WERE OBTAINED. WBC 6.0, RBC 2.28, HGB 5.1, HCT 16.7, PLT COUNT 354, SODIUM 137, POTASSIUM 3.0, CHLORIDE 96, CARBON DIOXIDE 38.0, BUN 16, CREATININE 0.68, GLUCOSE 191, CALCIUM 8.5, TOTAL BILI 0.20, AST 18, ALT 8, ALK PHOS 69, TROPONIN 13.6, BNP 165, TOTAL PROTEIN 6.0, ALBUMIN 2.4. STOOL WAS NEGATIVE FOR OCCULT BLOOD. A RESPIRATORY VIRAL PANEL WAS SET UP. BLOOD CULTURES WERE ALSO SET UP. A CHEST XRAY WAS OBTAINED AND REVEALED: RIGHT LOWER LOBE PNEUMONIA. A CHEST CT WITH CONTRAST WAS OBTAINED AND REVEALED: 1. No evidence for pulmonary embolic disease. 2. Severe aortic atherosclerosis; no aneurysm or dissection seen. 3. Interval development of a large (approximately 5.3 cm transverse by 4 cm AP by 2 x 3.2 cm CC) consolidative infiltrate throughout the lateral segment of the right middle lobe, blunting of the parietal pleura, in keeping with acute pneumonia in the appropriate clinical setting. Recommend clinical correlation and appropriate follow-up evaluation to ensure complete clearance since neoplastic disease mimicking pneumonia cannot be entirely excluded. 4. Interval development of a large right pleural effusion. 5. Moderate to severe diffuse lung parenchymal emphysema, especially in the upper lung girard (centrilobular emphysema). 6. Chronic stable anterior wedge compression fracture of the T12 vertebral body. EKG REVEALED NORMAL SINUS RHYTHM WITH HR 70 BPM. IN THE ER, SHE WAS GIVEN ROCEPHIN 1G IV X 1 DOSE. SHE WAS ADMITTED TO THE HOSPITAL FOR FURTHER EVALUATION AND TREATMENT OF SYMPTOMATIC ANEMA, RIGHT LOWER LOBE PNEUMONIA, RIGHT PLEURAL EFFUSION. SHE WAS STARTED ON LEVAQUIN 500MG IV DAILY, FORTAZ 1G IV Q8H, DUONEBS QID, PULMICORT NEBS BID. HER HOME MEDICATIONS OF LIPITOR, COREG, LASIX, POTASSIUM CHLORIDE, AND TRAMADOL WERE RESUMED. SHE WAS TYPE AND SCREENED, CROSSMATCHED, AND WE TRANSFUSED TWO UNITS OF PACKED RED BLOOD CELLS FOLLOWING ADMISSION. HER HGB FOLLOWING TRANSFUSION WAS 9.5. WE PLAN TO REPEAT AM LABS AND CONTINUE TO MONITOR. TIME SPENT ON CLINICAL ASSESSMENT, REVIEWING LABS AND IMAGING, DECISION MAKING, AND DOCUMENTATION GREATER THAN 75 MINUTES. - Past Medical History Past Medical History: COPD - Past Surgical History Surgical History: Cholecystectomy, Hysterectomy, Ortho Surgery - Family History Family Medical History: Cancer, [place], Hypertension - Social History Does patient currently use any type of tobacco product: No Have you used tobacco products in the last 12 months: No Type of Tobacco Use: Vapes Does any household member use tobacco: No Alcohol Use: None Drug Use: None - Review of Systems Constitutional: Weakness Eyes: No Symptoms Reported ENT: No Symptoms Reported Respiratory: Shortness of Breath, SOB with Excertion. denies: Cough Cardiovascular: No Symptoms Reported Gastrointestinal: No Symptoms Reported. denies: Nausea, Vomiting, Diarrhea, Constipation Genitourinary: No Symptoms Reported Musculoskeletal: No Symptoms Reported Skin: No Symptoms Reported Neurological: Weakness - Physical Exam Vital Signs: Vital Signs Temperature 97.1 F Temperature 97.9 F Pulse Rate [Left Radial] 78 Pulse Rate [Left Radial] 75 Pulse Rate 72 Respiratory Rate 20 Respiratory Rate 20 Blood Pressure [Left Arm] 129/60 Blood Pressure [Left Arm] 103/52 O2 Sat by Pulse Oximetry 99 O2 Sat by Pulse Oximetry 96 O2 Sat by Pulse Oximetry 99 Oriented: Normal Eyes: Normal Ear: Normal Nose: Normal Throat: Normal Respiratory: Diminished Throughout Cardiovascular: Normal : Normal Auscultation: Bowel Sounds: Normal Palpation: Normal Tenderness: Normal Skin: Normal Musculoskeletal: Normal Psychiatric: Normal Mood Description: Calm Affect: Normal Speech Pattern: Clear - Assessment/Plan (1) Symptomatic anemia Status: Acute Plan: ADMIT, TRANSFUSE PRBC, LEVAQUIN 500MG IV DAILY, FORTAZ 1G IV Q8H, DUONEBS QID, PULMICORT NEBS BID. HER HOME MEDICATIONS OF LIPITOR, COREG, LASIX, POTASSIUM CHLORIDE, AND TRAMADOL WERE RESUMED (2) Right lower lobe pneumonia Qualifiers: Pneumonia type: due to unspecified organism Qualified Code(s): J18.9 - Pneumonia, unspecified organism Status: Acute (3) Pleural effusion on right Status: Acute (4) Generalized weakness Status: Acute (5) COPD (chronic obstructive pulmonary disease) Qualifiers: COPD type: unspecified COPD Qualified Code(s): J44.9 - Chronic obstructive pulmonary disease, unspecified Status: Chronic (6) CHF (congestive heart failure) Qualifiers: Heart failure chronicity: chronic Status: Chronic - Allergies Allergies/Adverse Reactions: Allergies Allergy/AdvReac Type Severity Reaction Status Date / Time codeine Allergy Verified 07/09/23 14:01 - Medications Home Medications: Home Medications Medication Instructions Recorded Confirmed apixaban 5 mg tablet (Eliquis) 5 mg PO BID 03/22/22 07/09/23 atorvastatin 10 mg tablet (Lipitor) 10 mg PO HS 03/22/22 07/09/23 carvedilol 3.125 mg tablet (Coreg) 3.125 mg PO BID 03/22/22 07/09/23 furosemide 20 mg tablet (Lasix) 20 mg PO BID 03/22/22 07/09/23 potassium chloride 10 mEq 10 meq PO BID 03/22/22 07/09/23 tablet,extended release aspirin 81 mg chewable tablet 81 mg PO QDAY 07/09/23 07/09/23 Previous Rx's Medication Instructions Recorded tramadol 50 mg tablet 50 mg PO Q4H PRN 03/31/22 budesonide 0.5 mg/2 mL suspension 1 ea NEB BIDRESP #60 mL 04/07/22 for nebulization ipratropium 0.5 mg-albuterol 3 mg 3 ml NEB TID #60 mL 04/07/22 (2.5 mg base)/3 mL nebulization soln
[2023-07-10 17:19] LABS: HEMATOCRIT 27.2 % (36.0-47.0)
[2023-07-10] MEDS ORDERED: LIPITOR TAB 10 MG PO SCH (21:00)
[2023-07-10] MEDS: LEVAQUIN PREMIX IV 500 MG 500 MG/100 ML BAG IV SCH (22:59)
[2023-07-11] MEDS: FORTAZ or TAZICEF VIAL INJ 1 G in NS 100 ML IV 100 ML IV SCH ×3 (00:23→08:13)
[2023-07-11 06:41] LABS: BASOPHILS % (AUTO) 0.2 % (0.2-1.0); EOSINOPHILS # (AUTO) 0.4 x10^3/uL (0.0-0.2); EOSINOPHILS % (AUTO) 5.7 % (0.9-2.9); HEMATOCRIT 25.9 % (36.0-47.0); HEMOGLOBIN 8.7 g/dL (12.0-16.0); LYMPHOCYTES # (AUTO) 1.5 X10^3/uL (1.3-2.9); LYMPHOCYTES % (AUTO) 21.4 % (21.0-51.0); MEAN CORPUSCULAR HEMOGLOBIN 26.7 pg (27.0-34.0); MEAN CORPUSCULAR HGB CONC 33.7 g/dL (33.0-35.0); MEAN CORPUSCULAR VOLUME 79.2 fL (80.0-100.0); MEAN PLATELET VOLUME 8.1 fL (7.4-11.0); MONOCYTES # (AUTO) 0.6 x10^3/uL (0.3-0.8); MONOCYTES % (AUTO) 8.6 % (0.0-13.0); NEUTROPHILS # (AUTO) 4.4 x10^3/uL (2.2-4.8); NEUTROPHILS % (AUTO) 64.1 % (42.0-75.0); PLATELET COUNT 275 X10^3/uL (150.0-450.0); RED BLOOD COUNT 3.27 X10^6/uL (3.5-5.4); RED CELL DISTRIBUTION WIDTH 19.8 % (11.6-16.5); WHITE BLOOD COUNT 6.8 X10^3/uL (3.6-10.0)
[2023-07-11 06:56] LABS: ALANINE AMINOTRANSFERASE 6 Units/L (12-78); ALBUMIN 2.2 g/dL (3.4-5.0); ALKALINE PHOSPHATASE 58 Units/L (46-116); ASPARTATE AMINO TRANSFERASE 18 Units/L (15-37); BLOOD UREA NITROGEN 13 mg/dL (7-18); CALCIUM 7.9 mg/dL (8.5-10.1); CARBON DIOXIDE 33.7 mmol/L (21-32); CHLORIDE 102 mmol/L (98-107); COR CA(FOR HYPOALB) 9.3 mg/dL (8.5-10.1); CREATININE 0.73 mg/dL (0.55-1.02); GLUCOSE 82 mg/dL (65-99); MAGNESIUM 1.9 mg/dL (2.0-2.9); POTASSIUM 3.3 mmol/L (3.5-5.1); SODIUM 142 mmol/L (136-145); TOTAL PROTEIN 5.5 g/dL (6.4-8.2); eGFR NON BLACK RACES > 60 (>60)
--- NOTE | 2023-07-11 08:39 | RAD ---
HISTORYSOBSTUDYAP chestCOMPARISONAugust 2022FINDINGSStable heart size, act had ache aorta and clear left chest. Increasing density at the right base consistent with combination of airspace disease and enlarging right pleural effusion. The right upper lobe remains clear.IMPRESSIONIncreasing opacity at the right base as described. This is consistent with progression of pneumonia/atelectasis and enlarging right pleural effusion.Electronically signed by: JACKIE REED (Jul 11, 2023 08:37:52)
[2023-07-11] MEDS: COREG TAB 3.125 MG PO SCH (08:45)
[2023-07-11] MEDS: LASIX PO SCH (08:45)
[2023-07-11] MEDS: MICRO K EXTEN CAP 10 MEQ PO SCH (08:45)
[2023-07-11 08:48] VITALS: RESP 20
[2023-07-11] MEDS: PULMICORT NEB TX 0.5 MG NEB SCH (08:51)
[2023-07-11] MEDS: DUONEB 0.5 MG/3 MG (3 mL) NEB SCH ×2 (08:51→12:07)
[2023-07-11] MEDS ORDERED: K-DUR TAB 20 MEQ PO ONE (09:00)
[2023-07-11] MEDS ORDERED: CONSULT PHARMACY - POTASSIUM & MAGNESIUM XX SCH (09:00)
[2023-07-11] MEDS: MAG-OX TAB PO SCH (11:07)
[2023-07-11] MEDS ORDERED: NS 100 ML IV 100 ML with VENOFER 400 MG IV ONE ×2 (13:00)
[2023-07-11] MEDS ORDERED: FORTAZ or TAZICEF VIAL INJ 1 G in NS 100 ML IV 100 ML IV SCH (14:00)
[2023-07-11 16:17] VITALS: BP 129/49; PULSE 82; TEMP 98.1; O2SAT 97
[2023-07-11] MEDS ORDERED: K-DUR TAB 20 MEQ PO SCH (21:00)
== END 2023-07-11 17:35 | disposition home or self-care (01) | DRG 811 ==
LOC: ER 13:26 → MED/SURG 16:47
PROVIDERS: ADMIT Internal Medicine; ATTEND Internal Medicine
DX: E11.65 Type 2 diabetes mellitus with hyperglycemia; I50.9 Heart failure, unspecified; R91.8 Other nonspecific abnormal finding of lung field; D64.89 Other specified anemias; Z73.89 Other problems related to life management difficulty; R53.1 Weakness; J18.8 Other pneumonia, unspecified organism; J90 Pleural effusion, not elsewhere classified; R06.02 Shortness of breath

== ENCOUNTER 2023-09-04 11:23 | Inpatient (IN) ==
--- NOTE | 2023-09-04 12:32 | DR.GENAD ---
HPI Time Seen Time Seen by Provider: 09/04/23 12:29 PCP Primary Care Physician: Sivan Cruz Complaint/Symptoms Chief Complaint Doctors Comments: SENT OVER BY PCP BECAUSE HEMAGLOBIN WAS LOW AND STATED THAT SHE NEEDED A TRANSFUSION. PATIENT STATES THAT SHE WAS WEAK FOR 3-4 MONTHS AND HAS HGB OF 4.3 YESTERDAY. Chief Complaint:: states that she saw her PCP yesterday and was notified today that she has a HGB 4.8 and to come to the hospital. COVID-19 Coronavirus risk:travel/contact w/high risk person: No Has patient experienced Coronavirus symptoms: No Source History Provided: Patient Mode of Arrival Mode of Arrival: Stretcher Timing Onset of Chief Complaint: 09/04/23 PMH PMH Past Medical History: Yes Past Medical History: COPD Past Surgical History: Yes Surgical History: Cholecystectomy, Hysterectomy and Ortho Surgery Family History History of Family Medical Conditions: Yes Family Medical History: Cancer, [place] and Hypertension Social History Does patient currently use any type of tobacco product: Yes Have you used tobacco products in the last 12 months: Yes Type of Tobacco Use: vapes Alcohol Use: None Do you use any recreational Drugs:: No Lives With: Alone Lives Where: Home Travel Risk Coronavirus risk:travel/contact w/high risk person: No Has patient experienced Coronavirus symptoms: No Infectious screening Have you traveled outside the country in the last 6 months?: No Isolation: Standard ROS Review of Systems Constitutional: Weakness, Fatigue and Other (LOW HEMAGLOBIN) Eyes: No Symptoms Reported ENTM: No Symptoms Reported Respiratoy: No Symptoms Reported Cardiovascular: No Symptoms Reported Gastrointestinal/Abdominal: No Symptoms Reported Genitourinary: No Symptoms Reported Neurological: No Symptoms Reported Musculoskeletal: No Symptoms Reported Integumentary: No Symptoms Reported Hematologic/Lymphatic: Anemia Endocrine: No Symptoms Reported Psychiatric: No Symptoms Reported PE Vital Signs Vitals: Vital Signs Temperature 97.9 F Temperature 98.1 F Temperature 98.1 F Pulse Rate [Left Radial] 80 Pulse Rate [Left Radial] 86 Pulse Rate 86 Respiratory Rate 20 Respiratory Rate 22 Respiratory Rate 22 Blood Pressure [Left Arm] 105/48 Blood Pressure [Left Arm] 114/53 Blood Pressure 114/53 O2 Sat by Pulse Oximetry 100 O2 Sat by Pulse Oximetry 100 O2 Sat by Pulse Oximetry 100 General Limitations: Physical Limitation (WEAKNESS DUE TO ANEMIA) General Appearance: In Distress (MILD DISTRESS) Head Head Exam: Normal Inspection Eyes Eye exam: Normal Appearance, PERRL and EOMI ENT ENT Exam: Normal Exam, Normal Oropharynx and Normal External Ear Exam External Ear Exam: Normal External Inspection TM/Canal Exam: Bilateral: Normal Nose Exam: Normal Nose Exam Mouth Exam: Normal Inspection Throat Exam: Normal Inspection Neck Neck Exam: Normal Inspection, Full ROM and Trachea Midline Chest Chest Inspection: Normal Inspection Respiratory Respiratory Exam: Normal Lung Sounds Bilat Respiratory Exam: Bilateral: Clear to Auscultation Cardiovascular Cardiovascular Exam: Regular Rate and Normal Rhythm Abdominal Exam Abdominal Exam: Normal Inspection Extremities Extremities Exam: Normal Inspection and Full ROM Back Back Exam: Normal Inspection and Full ROM Neurologic Neurological Exam: Alert and Oriented X3 Psychiatric Psychiatric Exam: Normal Affect and Normal Mood Skin Skin Exam: Warm, Dry, Intact and Pallor MDM Differential Diagnosis Differential Diagnosis: ANEMIA,GI BLEED,FE DEFICIENCY ANEMIA,LUNG CANCER COURSE Treatment Treatment: patient remained stable during er evaluation. had h/h of 5.3/16.9. Also had uti on lab evaluation. Had heme positive stool. Spoke to dr Posada at 1430. will abmit and give 2units of prbc. Treat Uti. ROR Labs Reviewed Laboratory Results Reviewed?: Yes 09/04/23 11:48 09/04/23 11:48 Laboratory: WBC 7.3 X10^3/uL (3.6-10.0) 09/04/23 11:48 RBC 1.98 X10^6/uL (3.5-5.4) L 09/04/23 11:48 Hgb 5.3 g/dL (12.0-16.0) L* 09/04/23 11:48 Hct 16.9 % (36.0-47.0) L* 09/04/23 11:48 MCV 85.8 fL (80.0-100.0) 09/04/23 11:48 MCH 26.8 pg (27.0-34.0) L 09/04/23 11:48 MCHC 31.2 g/dL (33.0-35.0) L 09/04/23 11:48 RDW 17.4 % (11.6-16.5) H 09/04/23 11:48 Plt Count 413 X10^3/uL (150.0-450.0) 09/04/23 11:48 MPV 8.3 fL (7.4-11.0) 09/04/23 11:48 Neut % (Auto) 78.2 % (42.0-75.0) H 09/04/23 11:48 Lymph % (Auto) 11.4 % (21.0-51.0) L 09/04/23 11:48 [place] % (Auto) 6.8 % (0.0-13.0) 09/04/23 11:48 Eos % (Auto) 3.2 % (0.9-2.9) H 09/04/23 11:48 Baso % (Auto) 0.4 % (0.2-1.0) 09/04/23 11:48 Neut # (Auto) 5.7 x10^3/uL (2.2-4.8) H 09/04/23 11:48 Lymph # (Auto) 0.8 X10^3/uL (1.3-2.9) L 09/04/23 11:48 [place] # (Auto) 0.5 x10^3/uL (0.3-0.8) 09/04/23 11:48 Eos # (Auto) 0.2 x10^3/uL (0.0-0.2) 09/04/23 11:48 Baso # (Auto) 0.0 X10^3/uL (0.0-0.1) 09/04/23 11:48 Absolute Nucleated RBC 0.0 /100WBC 09/04/23 11:48 Sodium 144 mmol/L (136-145) 09/04/23 11:48 Corrected Sodium 145 mmol/L (136-145) 09/04/23 11:48 Potassium 3.8 mmol/L (3.5-5.1) 09/04/23 11:48 Chloride 102 mmol/L (98-107) 09/04/23 11:48 Carbon Dioxide 39.0 mmol/L (21-32) H 09/04/23 11:48 BUN 12 mg/dL (7-18) 09/04/23 11:48 Creatinine 0.86 mg/dL (0.55-1.02) 09/04/23 11:48 Est GFR (MDRD) Af Amer > 60 (>60) 09/04/23 11:48 Est GFR (MDRD) Non-Af > 60 (>60) 09/04/23 11:48 Glucose 158 mg/dL (65-99) H 09/04/23 11:48 Calcium 8.2 mg/dL (8.5-10.1) L 09/04/23 11:48 Corrected Calcium 9.8 mg/dL (8.5-10.1) 09/04/23 11:48 Total Bilirubin 0.20 mg/dL (0.2-1.0) 09/04/23 11:48 AST 17 Units/L (15-37) 09/04/23 11:48 ALT 11 Units/L (12-78) L 09/04/23 11:48 Alkaline Phosphatase 81 Units/L (46-116) 09/04/23 11:48 Total Protein 6.0 g/dL (6.4-8.2) L 09/04/23 11:48 Albumin 2.0 g/dL (3.4-5.0) L 09/04/23 11:48 Globulin 4.0 g/dL (2.5-4.5) 09/04/23 11:48 Albumin/Globulin Ratio 0.5 Ratio (1.1-2.1) L 09/04/23 11:48 Specimen Type Catherized urine 09/04/23 12:55 Urine Color Yellow (YELLOW) 09/04/23 12:55 Urine Appearance Slightly hazy (CLEAR) 09/04/23 12:55 Urine pH 6.5 (5.0 - 8.0) 09/04/23 12:55 Ur Specific [place] 1.010 (1.000-1.030) 09/04/23 12:55 Urine Protein Negative (NEGATIVE) 09/04/23 12:55 Urine Glucose (UA) Negative (NEGATIVE) 09/04/23 12:55 Urine Ketones Negative (NEGATIVE) 09/04/23 12:55 Urine Blood 3+ (NEGATIVE) 09/04/23 12:55 Urine Nitrite Negative (NEGATIVE) 09/04/23 12:55 Urine Bilirubin Negative (NEGATIVE) 09/04/23 12:55 Urine Urobilinogen 1+ (NORMAL) 09/04/23 12:55 Ur Leukocyte Esterase 3+ (NEGATIVE) 09/04/23 12:55 Urine RBC 3-5 /HPF (0-3) A 09/04/23 12:55 Urine WBC 3-5 /HPF (0-5) 09/04/23 12:55 Ur Squamous Epith Cells Few /HPF (NEGATIVE) 09/04/23 12:55 Urine Bacteria Trace /HPF (NEGATIVE) 09/04/23 12:55 Hyaline Casts Few /LPF (NEGATIVE) 09/04/23 12:55 Ur Culture Indicated? No/not indicated 09/04/23 12:55 Stool Occult Blood Positive (NEGATIVE) A 09/04/23 12:57 Stl Occult Blood (IFOB) Cancelled 09/04/23 12:55 Blood Type A POSITIVE 09/04/23 11:48 Antibody Screen Negative 09/04/23 11:48 Opioid Opioid Risk Tool Age (Burak box if 16-45): No History of Preadolescent Sexual Abuse: No Total: 0 Total Score Risk Category: Low Risk Copyright: Kahlil GAINES predicting aberrant behaviors Discharge Plan Diagnosis Discharge Problem: Anemia, UTI (urinary tract infection) Discharge Plan Patient Disposition: 09 ADMITTED INPATIENT Condition: Stable Orders to Discharge Patient Discharge Orders: Transfer (Routine); Ordered 09/04/23 Ordered By: Roberto Davis
[2023-09-04 13:11] LABS: BILIRUBIN,URINE NEGATIVE (NEGATIVE); BLOOD/HEMOGLOBIN,URINE 3+ (NEGATIVE); GLUCOSE, URINE NEGATIVE (NEGATIVE); KETONES,URINE NEGATIVE (NEGATIVE); LEUKOCYTE ESTERASE ,URINE 3+ (NEGATIVE); NITRITES,URINE NEGATIVE (NEGATIVE); PH,URINE 6.5 (5.0 - 8.0); PROTEIN,URINE NEGATIVE (NEGATIVE); UROBILINOGEN,URINE 1+ (NORMAL)
[2023-09-04 13:14] LABS: BASOPHILS % (AUTO) 0.4 % (0.2-1.0); EOSINOPHILS # (AUTO) 0.2 x10^3/uL (0.0-0.2); EOSINOPHILS % (AUTO) 3.2 % (0.9-2.9); LYMPHOCYTES # (AUTO) 0.8 X10^3/uL (1.3-2.9); LYMPHOCYTES % (AUTO) 11.4 % (21.0-51.0); MEAN CORPUSCULAR HEMOGLOBIN 26.8 pg (27.0-34.0); MEAN CORPUSCULAR HGB CONC 31.2 g/dL (33.0-35.0); MEAN CORPUSCULAR VOLUME 85.8 fL (80.0-100.0); MEAN PLATELET VOLUME 8.3 fL (7.4-11.0); MONOCYTES # (AUTO) 0.5 x10^3/uL (0.3-0.8); MONOCYTES % (AUTO) 6.8 % (0.0-13.0); NEUTROPHILS # (AUTO) 5.7 x10^3/uL (2.2-4.8); NEUTROPHILS % (AUTO) 78.2 % (42.0-75.0); PLATELET COUNT 413 X10^3/uL (150.0-450.0); RED BLOOD COUNT 1.98 X10^6/uL (3.5-5.4); RED CELL DISTRIBUTION WIDTH 17.4 % (11.6-16.5); WHITE BLOOD COUNT 7.3 X10^3/uL (3.6-10.0)
[2023-09-04 13:15] LABS: HEMOGLOBIN 5.3 g/dL (12.0-16.0)
[2023-09-04 13:16] LABS: HEMATOCRIT 16.9 % (36.0-47.0)
[2023-09-04 13:26] LABS: ALANINE AMINOTRANSFERASE 11 Units/L (12-78); ALKALINE PHOSPHATASE 81 Units/L (46-116); ASPARTATE AMINO TRANSFERASE 17 Units/L (15-37); BLOOD UREA NITROGEN 12 mg/dL (7-18); CALCIUM 8.2 mg/dL (8.5-10.1); CHLORIDE 102 mmol/L (98-107); COR CA(FOR HYPOALB) 9.8 mg/dL (8.5-10.1); COR NA(FOR HYPERGLY) 145 mmol/L (136-145); CREATININE 0.86 mg/dL (0.55-1.02); GLUCOSE 158 mg/dL (65-99); POTASSIUM 3.8 mmol/L (3.5-5.1); SODIUM 144 mmol/L (136-145); eGFR NON BLACK RACES > 60 (>60)
[2023-09-04 13:27] LABS: APPEARANCE,URINE SLIGHTLY HAZY (CLEAR); BACTERIA,URINE TRACE /HPF (NEGATIVE); COLOR,URINE YELLOW (YELLOW); HYALINE CASTS, URINE FEW /LPF (NEGATIVE); SQUAMOUS EPITHELIAL CELL,UR FEW /HPF (NEGATIVE)
[2023-09-04] MEDS ORDERED: ROCEPHIN VIAL 1 GRAM ONE (15:06)
[2023-09-04] MEDS ORDERED: NS 100 ML IV 100 ML ONE (15:06)
[2023-09-04] MEDS: ROCEPHIN VIAL 1 GRAM 1 G in NS 100 ML IV 100 ML IV SCH (15:17)
[2023-09-04 15:43] VITALS: BMI 20.5
[2023-09-04] MEDS: DUONEB 0.5 MG/3 MG (3 mL) NEB SCH (20:35)
[2023-09-04] MEDS: PULMICORT NEB TX 0.5 MG NEB SCH (20:35)
[2023-09-04] MEDS: LIPITOR TAB 10 MG PO SCH (20:39)
[2023-09-04] MEDS ORDERED: NS 500 ML IV 500 ML IV ONE (20:43)
[2023-09-05 04:39] LABS: BASOPHILS % (AUTO) 0.6 % (0.2-1.0); EOSINOPHILS # (AUTO) 0.3 x10^3/uL (0.0-0.2); EOSINOPHILS % (AUTO) 4.2 % (0.9-2.9); HEMATOCRIT 27.7 % (36.0-47.0); LYMPHOCYTES # (AUTO) 1.7 X10^3/uL (1.3-2.9); LYMPHOCYTES % (AUTO) 25.9 % (21.0-51.0); MEAN CORPUSCULAR HEMOGLOBIN 26.6 pg (27.0-34.0); MEAN CORPUSCULAR HGB CONC 33.4 g/dL (33.0-35.0); MEAN CORPUSCULAR VOLUME 79.7 fL (80.0-100.0); MEAN PLATELET VOLUME 7.8 fL (7.4-11.0); MONOCYTES # (AUTO) 0.6 x10^3/uL (0.3-0.8); MONOCYTES % (AUTO) 10.1 % (0.0-13.0); NEUTROPHILS # (AUTO) 3.8 x10^3/uL (2.2-4.8); NEUTROPHILS % (AUTO) 59.2 % (42.0-75.0); PLATELET COUNT 368 X10^3/uL (150.0-450.0); RED BLOOD COUNT 3.47 X10^6/uL (3.5-5.4); RED CELL DISTRIBUTION WIDTH 17.4 % (11.6-16.5); WHITE BLOOD COUNT 6.4 X10^3/uL (3.6-10.0)
[2023-09-05 04:41] LABS: HEMOGLOBIN 9.3 g/dL (12.0-16.0)
[2023-09-05 04:53] LABS: ALANINE AMINOTRANSFERASE 9 Units/L (12-78); ALBUMIN 1.9 g/dL (3.4-5.0); ALKALINE PHOSPHATASE 73 Units/L (46-116); ASPARTATE AMINO TRANSFERASE 17 Units/L (15-37); BLOOD UREA NITROGEN 13 mg/dL (7-18); CALCIUM 7.8 mg/dL (8.5-10.1); CARBON DIOXIDE 39.1 mmol/L (21-32); CHLORIDE 105 mmol/L (98-107); COR CA(FOR HYPOALB) 9.5 mg/dL (8.5-10.1); CREATININE 0.59 mg/dL (0.55-1.02); GLUCOSE 84 mg/dL (65-99); POTASSIUM 4.1 mmol/L (3.5-5.1); SODIUM 144 mmol/L (136-145); TOTAL PROTEIN 5.5 g/dL (6.4-8.2); eGFR NON BLACK RACES > 60 (>60)
[2023-09-05] MEDS: DUONEB 0.5 MG/3 MG (3 mL) NEB SCH ×3 (05:47→21:00)
[2023-09-05] MEDS ORDERED: ULTRAM PO PRN (07:45)
--- NOTE | 2023-09-05 08:43 | DR.H&P ---
H&P - History & Physical for Day of: H&P Date: 09/04/23 - Chief Complaint Chief Complaint: WEAKNESS, FATIGUE - History of Present Illness History of Present Illness: IS A 88 YEAR OLD PATIENT OF [employer]. SHE HAS A PMH OF COPD, CHF, HTN, CHOLECYSTECTOMY, HYSTERECTOMY. SHE PRESENTED TO THE ER WITH COMPLAINTS OF GENERALIZED WEAKNESS AND FATIGUE. SHE REPORTS INCREASING WEAKNESS FOR THE PAST 3-4 MONTHS. SHE REPORTS HAVING OUTPATIENT LABS AT HER PCPs OFFICE. SHE WAS CALLED AND TOLD THAT SHE NEEDED TO PRESENT TO THE HOSPTIAL DUE TO HER HEMOBLOBIN BEING 4.3 ON OUTPATIENT LABS. ON ARRIVAL TO THE HOSPITAL, HER VITALS WERE: 98.1-86-22-100%-114/53. LABS WERE OBTAINED. WBC 7.3, RBC 1.98, HGB 5.3, HCT 16.9, PLT COUNT 413, SODIUM 144, POTASSIUM 3.8, CHLORIDE 102, CARBON DIOXIDE 39.0, BUN 12, CREATININE 0.86, GLUCOSE 158, CALCIUM 8.2, TOTAL BILI 0.20, AST 17, ALT 11, ALK PHOS 81, TOTAL PROTEIN 6.0, ALBUMIN 2.0. URINALYSIS WAS OBTAINED AND REVEALED: WBC 3-5, RBC 3-5, BACTERIA TRACE, LEUKOCYTES 3+. STOOL WAS POSITIVE FOR OCCULT BLOOD. A URINE CULTURE WAS SET UP. DECISION WAS MADE TO ADMIT PATIENT TO THE HOSPITAL FOR FURTHER EVALUATION AND TREATMENT OF SYMPTOMATIC ANEMIA AND UTI. ON ADMISSION, SHE WAS STARTED ON PEPCID 20MG IV Q12H, PROTONIX 40MG IV BID, ROCEPHIN 1G IV DAILY, DUONEBS TID, PULMICORT NEBS BID. HER HOME MEDICATIONS OF LIPITOR, COREG, LASIX, POTASSIUM CHLORIDE, AND TRAMADOL WERE RESUMED. FOLLOWING ADMISSION, WE TYPE AND SCREENED, CROSSMATCHED, AND TRANSFUSED TWO UNITS OF PACKED RED BLOOD CELLS. FOLLOWING TRANSFUSION, HER HEMOGLOBIN WAS NOTED TO BE 9.3, HCT 27.7. WE WILL MONITOR HER H&H TODAY AND TRANSFUSE ADDITIONAL UNITS IF NEEDED. OTHERWISE, WE WILL FOLLOW UP WITH AM LABS AND CONTINUE TO MONITOR. TIME SPENT ON CLINICAL ASSESSMENT, REVIEWING LABS AND IMAGING, DECISION MAKING, AND DOCUMENTATION GREATER THAN 75 MINUTES. - Past Medical History Past Medical History: COPD, Hypertension - Past Surgical History Surgical History: Cholecystectomy, Hysterectomy, Joint Replacement - Family History Family Medical History: Diabetes Mellitus, Cancer, [place] - Social History Does patient currently use any type of tobacco product: No Have you used tobacco products in the last 12 months: No Type of Tobacco Use: Vape pen How many years tobacco product used: 20 Does any household member use tobacco: Yes Alcohol Use: Rarely Drug Use: None - Review of Systems Constitutional: See HPI, Weakness. denies: Fever, Sweats Eyes: No Symptoms Reported ENT: No Symptoms Reported Respiratory: No Symptoms Reported Cardiovascular: No Symptoms Reported Gastrointestinal: No Symptoms Reported Genitourinary: No Symptoms Reported Musculoskeletal: No Symptoms Reported Skin: No Symptoms Reported Neurological: Weakness - Physical Exam Vital Signs: Vital Signs Temperature 98.0 F Pulse Rate [Left Radial] 74 Pulse Rate 74 Respiratory Rate 19 Blood Pressure [Left Arm] 137/58 O2 Sat by Pulse Oximetry 100 O2 Sat by Pulse Oximetry 100 Oriented: Normal Eyes: Normal Ear: Normal Nose: Normal Throat: Normal Respiratory: Diminished Throughout Cardiovascular: Normal : Normal Auscultation: Bowel Sounds: Normal Palpation: Normal Tenderness: Normal Skin: Normal Musculoskeletal: Normal Psychiatric: Normal Mood Description: Calm Affect: Normal Speech Pattern: Clear - Assessment/Plan (1) Symptomatic anemia Status: Acute Plan: ADMIT, TRANSFUSE PRBC, MONITOR H&H, PEPCID 20MG IV Q12H, PROTONIX 40MG IV BID, ROCEPHIN 1G IV DAILY, DUONEBS TID, PULMICORT NEBS BID. RESUME HOME MEDS (2) UTI (urinary tract infection) Qualifiers: Urinary tract infection type: site unspecified Hematuria presence: with hematuria Qualified Code(s): N39.0 - Urinary tract infection, site not specified; R31.9 - Hematuria, unspecified Status: Acute (3) Generalized weakness Status: Acute (4) HTN (hypertension) Qualifiers: Hypertension type: primary hypertension Qualified Code(s): I10 - Essential (primary) hypertension Status: Chronic Plan: RESUME COREG (5) CHF (congestive heart failure) Qualifiers: Heart failure type: unspecified Heart failure chronicity: chronic Qualified Code(s): I50.9 - Heart failure, unspecified Status: Chronic Plan: RESUME COREG AND LASIX (6) COPD (chronic obstructive pulmonary disease) Qualifiers: COPD type: unspecified COPD Qualified Code(s): J44.9 - Chronic obstructive pulmonary disease, unspecified Status: Chronic Plan: NEBS [place] - Allergies Allergies/Adverse Reactions: Allergies Allergy/AdvReac Type Severity Reaction Status Date / Time codeine Allergy Verified 07/09/23 14:01 - Medications Home Medications: Home Medications Medication Instructions Recorded Confirmed apixaban 5 mg tablet (Eliquis) 5 mg PO BID 03/22/22 09/04/23 atorvastatin 10 mg tablet (Lipitor) 10 mg PO HS 03/22/22 09/04/23 carvedilol 3.125 mg tablet (Coreg) 3.125 mg PO BID 03/22/22 09/04/23 furosemide 20 mg tablet (Lasix) 20 mg PO BID 03/22/22 09/04/23 potassium chloride 10 mEq 10 meq PO BID 03/22/22 09/04/23 tablet,extended release aspirin 81 mg chewable tablet 81 mg PO QDAY 07/09/23 09/04/23 Previous Rx's Medication Instructions Recorded tramadol 50 mg tablet 50 mg PO Q4H PRN 03/31/22 budesonide 0.5 mg/2 mL suspension 1 ea NEB BIDRESP #60 mL 04/07/22 for nebulization ipratropium 0.5 mg-albuterol 3 mg 3 ml NEB TID #60 mL 04/07/22 (2.5 mg base)/3 mL nebulization soln
[2023-09-05] MEDS ORDERED: NS 500 ML IV 500 ML IV ONE (09:08)
[2023-09-05] MEDS: LASIX PO SCH ×2 (09:18→21:09)
[2023-09-05] MEDS: COREG TAB 3.125 MG PO SCH ×2 (09:18→21:10)
[2023-09-05] MEDS: PROTONIX INJ 40 MG VIAL IVP SCH ×2 (09:19→21:13)
[2023-09-05] MEDS: MICRO K EXTEN CAP 10 MEQ PO SCH ×2 (09:19→21:09)
[2023-09-05] MEDS: PEPCID 20 MG VIAL 20 MG in NS 50 ML IV 50 ML IV SCH ×2 (09:19→21:02)
[2023-09-05] MEDS: PULMICORT NEB TX 0.5 MG NEB SCH ×2 (09:36→21:00)
[2023-09-05] MEDS: ROCEPHIN VIAL 1 GRAM 1 G in NS 100 ML IV 100 ML IV SCH (09:59)
[2023-09-05] MEDS: LIPITOR TAB 10 MG PO SCH (21:10)
[2023-09-06] MEDS: DUONEB 0.5 MG/3 MG (3 mL) NEB SCH ×3 (05:30→20:03)
[2023-09-06 06:26] LABS: BASOPHILS % (AUTO) 0.6 % (0.2-1.0); EOSINOPHILS # (AUTO) 0.4 x10^3/uL (0.0-0.2); EOSINOPHILS % (AUTO) 5.8 % (0.9-2.9); HEMATOCRIT 26.9 % (36.0-47.0); LYMPHOCYTES # (AUTO) 1.2 X10^3/uL (1.3-2.9); LYMPHOCYTES % (AUTO) 17.6 % (21.0-51.0); MEAN CORPUSCULAR HEMOGLOBIN 26.5 pg (27.0-34.0); MEAN CORPUSCULAR HGB CONC 33.3 g/dL (33.0-35.0); MEAN CORPUSCULAR VOLUME 79.5 fL (80.0-100.0); MEAN PLATELET VOLUME 8.1 fL (7.4-11.0); MONOCYTES # (AUTO) 0.7 x10^3/uL (0.3-0.8); MONOCYTES % (AUTO) 10.7 % (0.0-13.0); NEUTROPHILS # (AUTO) 4.5 x10^3/uL (2.2-4.8); NEUTROPHILS % (AUTO) 65.3 % (42.0-75.0); PLATELET COUNT 348 X10^3/uL (150.0-450.0); RED BLOOD COUNT 3.38 X10^6/uL (3.5-5.4); RED CELL DISTRIBUTION WIDTH 17.4 % (11.6-16.5); WHITE BLOOD COUNT 6.9 X10^3/uL (3.6-10.0)
[2023-09-06 06:39] LABS: ALANINE AMINOTRANSFERASE 9 Units/L (12-78); ALKALINE PHOSPHATASE 71 Units/L (46-116); ASPARTATE AMINO TRANSFERASE 19 Units/L (15-37); BLOOD UREA NITROGEN 12 mg/dL (7-18); CALCIUM 7.7 mg/dL (8.5-10.1); CARBON DIOXIDE 36.3 mmol/L (21-32); CHLORIDE 105 mmol/L (98-107); COR CA(FOR HYPOALB) 9.3 mg/dL (8.5-10.1); CREATININE 0.63 mg/dL (0.55-1.02); GLUCOSE 82 mg/dL (65-99); POTASSIUM 3.5 mmol/L (3.5-5.1); SODIUM 142 mmol/L (136-145); TOTAL PROTEIN 5.6 g/dL (6.4-8.2); eGFR NON BLACK RACES > 60 (>60)
[2023-09-06] MEDS ORDERED: CONSULT PHARMACY - POTASSIUM & MAGNESIUM XX SCH (07:00)
[2023-09-06] MEDS: PULMICORT NEB TX 0.5 MG NEB SCH ×2 (09:30→20:03)
[2023-09-06] MEDS: PEPCID 20 MG VIAL 20 MG in NS 50 ML IV 50 ML IV SCH ×2 (09:42→21:07)
[2023-09-06] MEDS: MICRO K EXTEN CAP 10 MEQ PO SCH ×2 (09:42→21:02)
[2023-09-06] MEDS: LASIX PO SCH ×2 (09:42→21:03)
[2023-09-06] MEDS: MAG-OX TAB PO SCH ×2 (09:42→10:35)
[2023-09-06] MEDS: PROTONIX INJ 40 MG VIAL IVP SCH ×2 (09:42→21:11)
[2023-09-06] MEDS ORDERED: K-DUR TAB 20 MEQ PO SCH (10:00)
[2023-09-06] MEDS: COREG TAB 3.125 MG PO SCH ×2 (10:16→21:03)
[2023-09-06 10:31] VITALS: RESP 18
[2023-09-06] MEDS: ROCEPHIN VIAL 1 GRAM 1 G in NS 100 ML IV 100 ML IV SCH (10:35)
[2023-09-06] MEDS: LIPITOR TAB 10 MG PO SCH (21:04)
--- NOTE | 2023-09-06 21:28 | PCM.PROG ---
Progress Note - Progress Note for Day of Date of Exam: 09/06/23 - Subjective Subjective: IS CURRENTLY INPATIENT STATUS FOR [facility] OF SYMPTOMATIC ANEMIA, UTI, AND GENERALIZED WEAKNESS. SHE HAS A PMH OF COPD, CHF, HTN, CHOLECYSTECTOMY, HYSTERECTOMY. SHE PRESENTED TO THE ER WITH COMPLAINTS OF GENERALIZED WEAKNESS AND FATIGUE. SHE HAS RECEIVED TWO UNITS OF PACKED RED BLOOD CELLS SINCE ADMISSION. TODAY, SHE IS ALERT AND ORIENTED, LYING IN BED ON MORNING ROUNDS. SHE CONTINUES TO COMPLAIN OF GENERALIZED WEAKNESS, BUT REPORTS SLIGHT IMPROVEMENT IN SYMPTOMS SINCE RECEIVING BLOOD. ON EXAMINATION, HEART IS REGULAR IN RATE AND RHYTHM. BILATERAL LUNGS ARE CLEAR TO AUSCULTATION. ABDOMEN IS ROUND, SOFT, AND NON-TENDER WITH NORMAL BOWEL SOUNDS NOTED IN ALL QUADRANTS. GOOD RANGE OF MOTION NOTED TO UPPER AND LOWER EXTREMITIES WITH NO EDEMA NOTED. HER VITALS THIS MORNING ARE: 97.5-73-18-98%-118/56. LABS WERE OBTAINED. WBC 6.9, RBC 3.38, HGB 9.0, HCT 26.9, PLT COUNT 348, SODIUM 142, POTASSIUM 3.5, CHLORIDE 105, CARBON DIOXIDE 36.3, BUN 12, CREATININE 0.63, GLUCOSE 82, CALCIUM 7.7, MAGNESIUM 1.8, AST 19, ALT 9, ALK PHOS 71, TOTAL PROTEIN 5.6, ALBUMIN 2.0. A URINE CULTURE IS PENDING. SHE IS CURRENTLY RECEIVING PEPCID 20MG IV Q12H, PROTONIX 40MG IV BID, ROCEPHIN 1G IV DAILY, DUONEBS TID, PULMICORT NEBS BID. HER HOME MEDICATIONS OF LIPITOR, COREG, LASIX, POTASSIUM CHLORIDE, AND TRAMADOL WERE RESUMED. WE WILL CONTINUE WITH CURRENT PLAN OF CARE TODAY. WE WILL MONITOR HER H&H TODAY AND TRANSFUSE ADDITIONAL UNITS IF NEEDED. OTHERWISE, WE WILL FOLLOW UP WITH AM LABS AND CONTINUE TO MONITOR. TIME SPENT ON CLINICAL ASSESSMENT, REVIEWING LABS AND IMAGING, DECISION MAKING, AND DOCUMENTATION GREATER THAN 45 MINUTES. - Past Medical Family Social History Past Med/Fam/Surg Hx: No changes since H&P Allergies: Allergies codeine Allergy (Verified 07/09/23 14:01) - Review of Systems ROS: No change since H&P - Vital Signs and I&O's Vital Signs: Vital Signs Temperature 98.0 F Temperature 97 F Pulse Rate [Left Radial] 112 Pulse Rate [Left Radial] 86 Pulse Rate 82 Respiratory Rate 18 Respiratory Rate 18 Blood Pressure [Left Arm] 128/74 Blood Pressure [Left Arm] 139/60 O2 Sat by Pulse Oximetry 100 O2 Sat by Pulse Oximetry 99 O2 Sat by Pulse Oximetry 98 Intake and Output: Intake & Output 09/04/23 09/05/23 09/06/23 09/07/23 11:59 11:59 11:59 11:59 Intake Total 2185 / 2185 1777 / 1776 731 / 731 Balance 2185 / 2185 177 / 177 731 / 731 - Physical Exam Oriented: Normal Eyes: Normal Ear: Normal Nose: Normal Throat: Normal Respiratory: Normal Cardiovascular: Normal : Normal Auscultation: Bowel Sounds: Normal Tenderness: Normal Skin: Normal Musculoskeletal: Normal Psychiatric: Normal Mood Description: Calm Affect: Normal Speech Pattern: Clear - Laboratory and Diagnostics Result Diagrams: 09/06/23 05:51 09/06/23 05:51 Labs: 09/05/23 19:47 Urine,Clean Catch Urine Culture - Final Laboratory WBC 6.9 X10^3/uL (3.6-10.0) 09/06/23 05:51 RBC 3.38 X10^6/uL (3.5-5.4) L 09/06/23 05:51 Hgb 9.0 g/dL (12.0-16.0) L 09/06/23 05:51 Hct 26.9 % (36.0-47.0) L 09/06/23 05:51 MCV 79.5 fL (80.0-100.0) L 09/06/23 05:51 MCH 26.5 pg (27.0-34.0) L 09/06/23 05:51 MCHC 33.3 g/dL (33.0-35.0) 09/06/23 05:51 RDW 17.4 % (11.6-16.5) H 09/06/23 05:51 Plt Count 348 X10^3/uL (150.0-450.0) 09/06/23 05:51 MPV 8.1 fL (7.4-11.0) 09/06/23 05:51 Neut % (Auto) 65.3 % (42.0-75.0) 09/06/23 05:51 Lymph % (Auto) 17.6 % (21.0-51.0) L 09/06/23 05:51 [place] % (Auto) 10.7 % (0.0-13.0) 09/06/23 05:51 Eos % (Auto) 5.8 % (0.9-2.9) H 09/06/23 05:51 Baso % (Auto) 0.6 % (0.2-1.0) 09/06/23 05:51 Neut # (Auto) 4.5 x10^3/uL (2.2-4.8) 09/06/23 05:51 Lymph # (Auto) 1.2 X10^3/uL (1.3-2.9) L 09/06/23 05:51 [place] # (Auto) 0.7 x10^3/uL (0.3-0.8) 09/06/23 05:51 Eos # (Auto) 0.4 x10^3/uL (0.0-0.2) H 09/06/23 05:51 Baso # (Auto) 0.0 X10^3/uL (0.0-0.1) 09/06/23 05:51 Absolute Nucleated RBC 0.2 /100WBC 09/06/23 05:51 Sodium 142 mmol/L (136-145) 09/06/23 05:51 Corrected Sodium TNP 09/06/23 05:51 Potassium 3.5 mmol/L (3.5-5.1) 09/06/23 05:51 Chloride 105 mmol/L (98-107) 09/06/23 05:51 Carbon Dioxide 36.3 mmol/L (21-32) H 09/06/23 05:51 BUN 12 mg/dL (7-18) 09/06/23 05:51 Creatinine 0.63 mg/dL (0.55-1.02) 09/06/23 05:51 Est GFR (MDRD) Af Amer > 60 (>60) 09/06/23 05:51 Est GFR (MDRD) Non-Af > 60 (>60) 09/06/23 05:51 Glucose 82 mg/dL (65-99) 09/06/23 05:51 Calcium 7.7 mg/dL (8.5-10.1) L 09/06/23 05:51 Corrected Calcium 9.3 mg/dL (8.5-10.1) 09/06/23 05:51 Magnesium 1.8 mg/dL (2.0-2.9) L 09/06/23 05:51 Total Bilirubin 0.30 mg/dL (0.2-1.0) 09/06/23 05:51 AST 19 Units/L (15-37) 09/06/23 05:51 ALT 9 Units/L (12-78) L 09/06/23 05:51 Alkaline Phosphatase 71 Units/L (46-116) 09/06/23 05:51 Total Protein 5.6 g/dL (6.4-8.2) L 09/06/23 05:51 Albumin 2.0 g/dL (3.4-5.0) L 09/06/23 05:51 Globulin 3.6 g/dL (2.5-4.5) 09/06/23 05:51 Albumin/Globulin Ratio 0.6 Ratio (1.1-2.1) L 09/06/23 05:51 Specimen Type Catherized urine 09/04/23 12:55 Urine Color Yellow (YELLOW) 09/04/23 12:55 Urine Appearance Slightly hazy (CLEAR) 09/04/23 12:55 Urine pH 6.5 (5.0 - 8.0) 09/04/23 12:55 Ur Specific [place] 1.010 (1.000-1.030) 09/04/23 12:55 Urine Protein Negative (NEGATIVE) 09/04/23 12:55 Urine Glucose (UA) Negative (NEGATIVE) 09/04/23 12:55 Urine Ketones Negative (NEGATIVE) 09/04/23 12:55 Urine Blood 3+ (NEGATIVE) 09/04/23 12:55 Urine Nitrite Negative (NEGATIVE) 09/04/23 12:55 Urine Bilirubin Negative (NEGATIVE) 09/04/23 12:55 Urine Urobilinogen 1+ (NORMAL) 09/04/23 12:55 Ur Leukocyte Esterase 3+ (NEGATIVE) 09/04/23 12:55 Urine RBC 3-5 /HPF (0-3) A 09/04/23 12:55 Urine WBC 3-5 /HPF (0-5) 09/04/23 12:55 Ur Squamous Epith Cells Few /HPF (NEGATIVE) 09/04/23 12:55 Urine Bacteria Trace /HPF (NEGATIVE) 09/04/23 12:55 Hyaline Casts Few /LPF (NEGATIVE) 09/04/23 12:55 Ur Culture Indicated? No/not indicated 09/04/23 12:55 Stool Occult Blood Positive (NEGATIVE) A 09/04/23 12:57 Stl Occult Blood (IFOB) Cancelled 09/04/23 12:55 Blood Type A POSITIVE 09/04/23 11:48 Antibody Screen Negative 09/04/23 11:48 Crossmatch See Detail 09/04/23 11:48 - Plan (1) Symptomatic anemia Status: Acute Plan: MONITOR H&H AND TRANSFUSE PRBC IF NEEDED, PEPCID 20MG IV Q12H, PROTONIX 40MG IV BID, ROCEPHIN 1G IV DAILY, DUONEBS TID, PULMICORT NEBS BID. RESUME HOME MEDS (2) UTI (urinary tract infection) Status: Acute Qualifiers: Urinary tract infection type: site unspecified Hematuria presence: with hematuria Qualified Code(s): N39.0 - Urinary tract infection, site not specified; R31.9 - Hematuria, unspecified (3) Generalized weakness Status: Acute (4) HTN (hypertension) Status: Chronic Qualifiers: Hypertension type: primary hypertension Qualified Code(s): I10 - Essential (primary) hypertension Plan: RESUME COREG (5) CHF (congestive heart failure) Status: Chronic Qualifiers: Heart failure type: unspecified Heart failure chronicity: chronic Qualified Code(s): I50.9 - Heart failure, unspecified Plan: RESUME COREG AND LASIX (6) COPD (chronic obstructive pulmonary disease) Status: Chronic Qualifiers: COPD type: unspecified COPD Qualified Code(s): J44.9 - Chronic obstructive pulmonary disease, unspecified Plan: NEBS [place]
[2023-09-07] MEDS: DUONEB 0.5 MG/3 MG (3 mL) NEB SCH ×2 (05:00→10:11)
[2023-09-07 05:31] LABS: BASOPHILS % (AUTO) 0.6 % (0.2-1.0); EOSINOPHILS # (AUTO) 0.4 x10^3/uL (0.0-0.2); EOSINOPHILS % (AUTO) 6.9 % (0.9-2.9); HEMATOCRIT 28.1 % (36.0-47.0); HEMOGLOBIN 9.1 g/dL (12.0-16.0); LYMPHOCYTES # (AUTO) 1.2 X10^3/uL (1.3-2.9); LYMPHOCYTES % (AUTO) 19.5 % (21.0-51.0); MEAN CORPUSCULAR HEMOGLOBIN 26.5 pg (27.0-34.0); MEAN CORPUSCULAR HGB CONC 32.4 g/dL (33.0-35.0); MEAN CORPUSCULAR VOLUME 81.9 fL (80.0-100.0); MEAN PLATELET VOLUME 8.1 fL (7.4-11.0); MONOCYTES # (AUTO) 0.6 x10^3/uL (0.3-0.8); NEUTROPHILS # (AUTO) 3.9 x10^3/uL (2.2-4.8); PLATELET COUNT 345 X10^3/uL (150.0-450.0); RED BLOOD COUNT 3.43 X10^6/uL (3.5-5.4); RED CELL DISTRIBUTION WIDTH 17.6 % (11.6-16.5); WHITE BLOOD COUNT 6.2 X10^3/uL (3.6-10.0)
[2023-09-07 05:56] LABS: ALANINE AMINOTRANSFERASE 11 Units/L (12-78); ALKALINE PHOSPHATASE 71 Units/L (46-116); ASPARTATE AMINO TRANSFERASE 18 Units/L (15-37); BLOOD UREA NITROGEN 12 mg/dL (7-18); CALCIUM 7.9 mg/dL (8.5-10.1); CARBON DIOXIDE 38.9 mmol/L (21-32); CHLORIDE 106 mmol/L (98-107); COR CA(FOR HYPOALB) 9.5 mg/dL (8.5-10.1); CREATININE 0.65 mg/dL (0.55-1.02); GLUCOSE 89 mg/dL (65-99); MAGNESIUM 2.2 mg/dL (2.0-2.9); POTASSIUM 3.7 mmol/L (3.5-5.1); SODIUM 143 mmol/L (136-145); TOTAL PROTEIN 5.8 g/dL (6.4-8.2); eGFR NON BLACK RACES > 60 (>60)
[2023-09-07] MEDS ORDERED: CONSULT PHARMACY - POTASSIUM & MAGNESIUM XX SCH (07:00)
[2023-09-07] MEDS: PROTONIX INJ 40 MG VIAL IVP SCH (09:04)
[2023-09-07] MEDS: LASIX PO SCH (09:04)
[2023-09-07] MEDS: PEPCID 20 MG VIAL 20 MG in NS 50 ML IV 50 ML IV SCH (09:04)
[2023-09-07] MEDS: MICRO K EXTEN CAP 10 MEQ PO SCH (09:04)
[2023-09-07] MEDS: COREG TAB 3.125 MG PO SCH (09:04)
[2023-09-07 09:42] VITALS: BP 131/61; PULSE 78; TEMP 97.8; O2SAT 97
[2023-09-07] MEDS: PULMICORT NEB TX 0.5 MG NEB SCH (09:45)
[2023-09-07] MEDS: ROCEPHIN VIAL 1 GRAM 1 G in NS 100 ML IV 100 ML IV SCH (09:52)
[2023-09-07] MEDS ORDERED: K-DUR TAB 20 MEQ PO SCH (10:00)
== END 2023-09-07 12:10 | disposition home health service (06) | DRG 690 ==
LOC: ER 11:23 → MED/SURG 15:53
PROVIDERS: ADMIT Internal Medicine; ATTEND Internal Medicine
DX: K92.1 Melena; J44.9 Chronic obstructive pulmonary disease, unspecified; R53.1 Weakness; I11.0 Hypertensive heart disease with heart failure; D64.89 Other specified anemias; N39.0 Urinary tract infection, site not specified; I50.9 Heart failure, unspecified

== ENCOUNTER 2024-05-15 16:34 | Inpatient (IN) ==
--- NOTE | 2024-05-15 16:41 | DR.SOBA ---
HPI Time Seen Time Seen by Provider: 05/15/24 16:41 HPI Comment HPI Comment: 89 y/o with copd on chronic oxygen brought in by ems reports worsening cough and sob over the past week; she's been getting weaker and weaker as well; she denies fever, chills, cp and palpitations; she has intermittent abd pain but denies n/v/d; last bm yesterday wnl. PMH PMH Past Medical History: COPD and Hypertension Past Surgical History: Yes Surgical History: Cholecystectomy, Hysterectomy, Joint Replacement and Other Family History Family Medical History: Diabetes Mellitus, Cancer and [place] Social History Do you use any recreational Drugs:: No ROS Review of Systems Constitutional: No Symptoms Reported Eyes: No Symptoms Reported ENTM: No Symptoms Reported Respiratoy: See HPI Cardiovascular: No Symptoms Reported Gastrointestinal/Abdominal: No Symptoms Reported Genitourinary: No Symptoms Reported Neurological: No Symptoms Reported Musculoskeletal: See HPI Integumentary: No Symptoms Reported Hematologic/Lymphatic: No Symptoms Reported Endocrine: No Symptoms Reported Psychiatric: No Symptoms Reported PE Vital Signs Vitals: Vital Signs Temperature 98.3 F Pulse Rate 96 Pulse Rate 96 Respiratory Rate 37 Respiratory Rate 15 Blood Pressure 125/69 O2 Sat by Pulse Oximetry 98 O2 Sat by Pulse Oximetry 99 General Limitations: No Limitations General Appearance: Alert, In No Apparent Distress and Other (unkempt) Head Head Exam: Normal Inspection Eyes Eye exam: Normal Appearance ENT ENT Exam: Normal Exam Neck Neck Exam: Normal Inspection Chest Chest Inspection: Normal Inspection Respiratory Respiratory Exam: Normal Lung Sounds Bilat Respiratory Exam: Bilateral: Clear to Auscultation Cardiovascular Cardiovascular Exam: Regular Rate and Normal Rhythm Abdominal Exam Abdominal Exam: Normal Inspection, Normal Bowel Sounds and Soft Extremities Extremities Exam: Other (thin) Back Back Exam: Normal Inspection Neurologic Neurological Exam: Alert and Oriented X3 Psychiatric Psychiatric Exam: Normal Affect and Normal Mood Skin Skin Exam: Warm (thin), Dry and Intact ROR Labs Reviewed Laboratory Results Reviewed?: Yes 05/17/24 05:22 05/17/24 05:22 Laboratory: WBC 9.6 X10^3/uL (3.6-10.0) 05/15/24 17:00 RBC 3.75 X10^6/uL (3.5-5.4) 05/15/24 17:00 Hgb 11.6 g/dL (12.0-16.0) L 05/15/24 17:00 Hct 35.0 % (36.0-47.0) L 05/15/24 17:00 MCV 93.5 fL (80.0-100.0) 05/15/24 17:00 MCH 30.9 pg (27.0-34.0) 05/15/24 17:00 MCHC 33.0 g/dL (33.0-35.0) 05/15/24 17:00 RDW 13.8 % (11.6-16.5) 05/15/24 17:00 Plt Count 360 X10^3/uL (150.0-450.0) 05/15/24 17:00 MPV 7.6 fL (7.4-11.0) 05/15/24 17:00 Neut % (Auto) 72.0 % (42.0-75.0) 05/15/24 17:00 Lymph % (Auto) 17.3 % (21.0-51.0) L 05/15/24 17:00 [place] % (Auto) 8.7 % (0.0-13.0) 05/15/24 17:00 Eos % (Auto) 1.5 % (0.9-2.9) 05/15/24 17:00 Baso % (Auto) 0.5 % (0.2-1.0) 05/15/24 17:00 Neut # (Auto) 6.9 x10^3/uL (2.2-4.8) H 05/15/24 17:00 Lymph # (Auto) 1.7 X10^3/uL (1.3-2.9) 05/15/24 17:00 [place] # (Auto) 0.8 x10^3/uL (0.3-0.8) 05/15/24 17:00 Eos # (Auto) 0.1 x10^3/uL (0.0-0.2) 05/15/24 17:00 Baso # (Auto) 0.0 X10^3/uL (0.0-0.1) 05/15/24 17:00 Absolute Nucleated RBC 0.1 /100WBC 05/15/24 17:00 Sodium 137 mmol/L (136-145) 05/15/24 17:00 Corrected Sodium 138 mmol/L (136-145) 05/15/24 17:00 Potassium 3.3 mmol/L (3.5-5.1) L 05/15/24 17:00 Chloride 96 mmol/L (98-107) L 05/15/24 17:00 Carbon Dioxide 37.4 mmol/L (21-32) H 05/15/24 17:00 BUN 11 mg/dL (7-18) 05/15/24 17:00 Creatinine 0.62 mg/dL (0.55-1.02) 05/15/24 17:00 Est GFR (MDRD) Af Amer > 60 (>60) 05/15/24 17:00 Est GFR (MDRD) Non-Af > 60 (>60) 05/15/24 17:00 Glucose 138 mg/dL (65-99) H 05/15/24 17:00 Calcium 8.8 mg/dL (8.5-10.1) 05/15/24 17:00 Corrected Calcium 10.3 mg/dL (8.5-10.1) H 05/15/24 17:00 Total Bilirubin 0.40 mg/dL (0.2-1.0) 05/15/24 17:00 AST 20 Units/L (15-37) 05/15/24 17:00 ALT 8 Units/L (12-78) L 05/15/24 17:00 Alkaline Phosphatase 61 Units/L (46-116) 05/15/24 17:00 Creatine Kinase 15 Units/L (26-192) L 05/15/24 17:00 Troponin I High Sens 17.4 ng/L (4.0-60.0) 05/15/24 17:00 B-Natriuretic Peptide 184 pg/mL (0-79) H 05/15/24 17:00 Total Protein 6.6 g/dL (6.4-8.2) 05/15/24 17:00 Albumin 2.1 g/dL (3.4-5.0) L 05/15/24 17:00 Globulin 4.5 g/dL (2.5-4.5) 05/15/24 17:00 Albumin/Globulin Ratio 0.5 Ratio (1.1-2.1) L 05/15/24 17:00 SARS-CoV-2 (PCR) Negative (NEGATIVE) 05/15/24 17:00 Influenza Type A (PCR) Negative (NEGATIVE) 05/15/24 17:00 Influenza Type B (PCR) Negative (NEGATIVE) 05/15/24 17:00 RSV (PCR) Negative (NEGATIVE) 05/15/24 17:00 XRAY XRAY Interpreted by: Both X-ray Results: ct chest: 1. There is a conglomeration of consolidation seen in the left upper lung zone with a mixed pattern of interlobular septal thickening. There is associated emphysema/COPD. This may represent acute or chronic airspace disease. Follow-up to complete resolution may be obtained as clinically indicated. This was not present on the prior study. 2. There is a large right pleural effusion which appears loculated in oblique. Superimposed consolidation is also present over the right pleural effusion. This could be infectious in etiology. Differential diagnosis should also include chronic airspace disease such as organizing pneumonia or malignancy. This was not present on the prior examination. 3. There is a compression fracture in the T12 vertebral body which appears osteoporotic in etiology. There is no retropulsion of bone fragment going into the spinal canal. 4. There is an abdominal aortic aneurysm measuring 29 x 28 mm which is heavily calcified. 5. Exam is also limited due to motion. 6. Mediastinal lymphadenopathy is seen most notable in the pretracheal space measuring 12 mm in short axis. This may be reactive in etiology. Differential diagnosis should include malignancy. Please note that this was present on a prior CT angiogram of the chest dated September 24, 2021. Therefore this may be chronic in etiology. pcxr: rll, jennifer opacity Opioid Opioid Risk Tool Age (Burak box if 16-45): No History of Preadolescent Sexual Abuse: No Total: 0 Total Score Risk Category: Low Risk Copyright: Kahlil GAINES predicting aberrant behaviors Discharge Plan Diagnosis Discharge Problem: Acute hypokalemia, COPD, severe, Cachectic, Community acquired bacterial pneumonia, Dependence on supplemental oxygen, Bedbound Discharge Plan Patient Disposition: ADMITTED INPATIENT Condition: Stable
[2024-05-15 17:10] LABS: BASOPHILS % (AUTO) 0.5 % (0.2-1.0); EOSINOPHILS # (AUTO) 0.1 x10^3/uL (0.0-0.2); EOSINOPHILS % (AUTO) 1.5 % (0.9-2.9); HEMOGLOBIN 11.6 g/dL (12.0-16.0); LYMPHOCYTES # (AUTO) 1.7 X10^3/uL (1.3-2.9); LYMPHOCYTES % (AUTO) 17.3 % (21.0-51.0); MEAN CORPUSCULAR HEMOGLOBIN 30.9 pg (27.0-34.0); MEAN CORPUSCULAR VOLUME 93.5 fL (80.0-100.0); MEAN PLATELET VOLUME 7.6 fL (7.4-11.0); MONOCYTES # (AUTO) 0.8 x10^3/uL (0.3-0.8); MONOCYTES % (AUTO) 8.7 % (0.0-13.0); NEUTROPHILS # (AUTO) 6.9 x10^3/uL (2.2-4.8); PLATELET COUNT 360 X10^3/uL (150.0-450.0); RED BLOOD COUNT 3.75 X10^6/uL (3.5-5.4); RED CELL DISTRIBUTION WIDTH 13.8 % (11.6-16.5); WHITE BLOOD COUNT 9.6 X10^3/uL (3.6-10.0)
--- NOTE | 2024-05-15 17:17 | EKG ---
Test Reason : sob Blood Pressure : */* mmHG Vent. Rate : 98 BPM Atrial Rate : 98 BPM P-R Int : 148 ms QRS Dur : 68 ms QT Int : 328 ms P-R-T Axes : 74 -54 65 degrees QTc Int : 418 ms Normal sinus rhythm Left axis deviation Nonspecific ST abnormality Abnormal ECG When compared with ECG of 09-JUL-2023 14:14, ST less depressed in Inferior leads Confirmed by Anastacio Donohue MD ([id number]) on 05/16/2024 7:40:17 AM Referred By: Confirmed By: Anastacio Donohue MD
[2024-05-15 17:25] LABS: ALANINE AMINOTRANSFERASE 8 Units/L (12-78); ALBUMIN 2.1 g/dL (3.4-5.0); ALKALINE PHOSPHATASE 61 Units/L (46-116); ASPARTATE AMINO TRANSFERASE 20 Units/L (15-37); BLOOD UREA NITROGEN 11 mg/dL (7-18); CALCIUM 8.8 mg/dL (8.5-10.1); CARBON DIOXIDE 37.4 mmol/L (21-32); CHLORIDE 96 mmol/L (98-107); COR CA(FOR HYPOALB) 10.3 mg/dL (8.5-10.1); COR NA(FOR HYPERGLY) 138 mmol/L (136-145); CREATINE KINASE 15 Units/L (26-192); CREATININE 0.62 mg/dL (0.55-1.02); GLUCOSE 138 mg/dL (65-99); POTASSIUM 3.3 mmol/L (3.5-5.1); SODIUM 137 mmol/L (136-145); TOTAL PROTEIN 6.6 g/dL (6.4-8.2); eGFR NON BLACK RACES > 60 (>60)
--- NOTE | 2024-05-15 20:20 | CT ---
EXAM:CT CHEST WITHOUT CONTRASTHISTORY:Patient is short of breath and there is concern for a right lower lobe massCOMPARISON:CT angiogram chest dated 09/24/2021TECHNIQUE:Axial images were acquired of the chest without IV contrast. Sagittal and coronal reformatted images were provided. All images were reviewed in a variety of windows and levels. 3D MIPS were performed and reviewed.RADIATION REDUCTION TECHNIQUE: Automated exposure control, Adjustment of the mA and/or kV according to patient size, or iterative reconstruction techniques were used.FINDINGS:CHEST:Please note that lack of IV contrast limits evaluation of soft tissue structures and vascular detail. Exam is also limited due to motion.THYROID GLAND: The thyroid gland is grossly unremarkable.HEART AND VESSELS: The heart size is within normal limits. There is no evidence of a pericardial effusion. The thoracic aorta is normal is size without evidence of an aneurysm. The main pulmonary artery size is within normal limits. Heavy calcified plaque burden is seen in the [place] coronary vasculatureLYMPHNODES: Mediastinal lymphadenopathy is seen most notable in the pretracheal space measuring 12 mm in short axis. There is no evidence of hilar or axillary lymphadenopathy.AIRWAY: The trachea and mainstem bronchi are patent. There are no intraluminal lesions seen.LUNGS: There is a conglomeration of consolidation seen in the left upper lung zone with a mixed pattern of interlobular septal thickening. There is emphysematous changes present. Volume loss is seen in the right lung. There is a small left pleural effusion. There is a large right pleural effusion which appears loculated in oblique. Superimposed consolidation is also present over the right pleural effusion. Pneumothorax.ESOPHAGUS: The esophagus is grossly unremarkable.BONES: The visualized bones demonstrate degenerative changes. There are no concerning lytic or blastic lesions identified. There is a compression fracture in the T12 vertebral body which appears osteoporotic in etiology. There is no retropulsion of bone fragment going into the spinal canal.UPPER ABDOMINAL STRUCTURES: The visualized portions of the upper abdominal structures demonstrate postoperative changes from cholecystectomy. There is an abdominal aortic aneurysm measuring 29 x 28 mm which is heavily calcified.IMPRESSION:1. There is a conglomeration of consolidation seen in the left upper lung zone with a mixed pattern of interlobular septal thickening. There is associated emphysema/COPD. This may represent acute or chronic airspace disease. Follow-up to complete resolution may be obtained as clinically indicated. This was not present on the prior study.2. There is a large right pleural effusion which appears loculated in oblique. Superimposed consolidation is also present over the right pleural effusion. This could be infectious in etiology. Differential diagnosis should also include chronic airspace disease such as organizing pneumonia or malignancy. This was not present on the prior examination.3. There is a compression fracture in the T12 vertebral body which appears osteoporotic in etiology. There is no retropulsion of bone fragment going into the spinal canal.4. There is an abdominal aortic aneurysm measuring 29 x 28 mm which is heavily calcified.5. Exam is also limited due to motion.6. Mediastinal lymphadenopathy is seen most notable in the pretracheal space measuring 12 mm in short axis. This may be reactive in etiology. Differential diagnosis should include malignancy. Please note that this was present on a prior CT angiogram of the chest dated September 24, 2021. Therefore this may be chronic in etiology.THIS IS AN ELECTRONICALLY VERIFIED FINAL REPORT05/15/2024 8:17 PM - Electronically signed by Lobito Jain MD
[2024-05-15] MEDS: SALINE 0.9% 3 ML NEB TX ONE (21:05)
[2024-05-15] MEDS: ROCEPHIN VIAL 1 GRAM 1 G in NS 100 ML IV 100 ML IV SCH (21:14)
[2024-05-15] MEDS: NS 1/2 1,000 ML IV 1,000 ML IV SCH ×2 (21:15→22:46)
[2024-05-15] MEDS: NS 100 ML IV 100 ML ONE (21:40)
[2024-05-15] MEDS: ROCEPHIN VIAL 1 GRAM ONE (21:40)
[2024-05-15] MEDS: NS 1/2 1,000 ML IV 1,000 ML IV ONE (21:40)
--- NOTE | 2024-05-15 21:54 | DR.SOBA ---
HPI Time Seen Time Seen by Provider: 05/15/24 16:41 Primary Care Physician Primary Care Physician: shaniqua gutierrez HPI Comment HPI Comment: Patient lives alone. She had noticed some shortness of breath and not feeling well. Called EMS and was brought to emergency room for evaluation Complaints Chief Complaint Doctors Comments: Shortness of breath, not feeling well Chief Complaint:: Patient states for the last week she has been having increased sob with exertion and general malase that keeps getting worse. decrease appetite. denies any pain at this time. COVID-19 Coronavirus risk:travel/contact w/high risk person: No Has patient experienced Coronavirus symptoms: No Reviewed Nurses Notes Reviewed: Yes Source History Provided: Patient Mode of Arrival Mode of Arrival: Stretcher Timing Onset of Chief Complaint: 05/08/24 PMH PMH Past Medical History: Yes Past Medical History: Anemia, COPD and Hypertension Past Surgical History: Yes Surgical History: Cholecystectomy, Hysterectomy, Joint Replacement and Other Family History History of Family Medical Conditions: Yes Family Medical History: Diabetes Mellitus, Cancer and [place] Social History Does patient currently use any type of tobacco product: Yes Have you used tobacco products in the last 12 months: Yes Type of Tobacco Use: Vape Does any household member use tobacco: Yes Alcohol Use: None Do you use any recreational Drugs:: No Lives With: Alone Lives Where: Home Travel Risk Coronavirus risk:travel/contact w/high risk person: No Has patient experienced Coronavirus symptoms: No Infectious screening In the last 2 months have you had wt loss of >10#?: NO Have you had fever, night sweats or hemotysis?: No Have you traveled outside the country in the last 6 months?: No Isolation: Standard ROS Review of Systems Constitutional: Malaise and Weakness Eyes: No Symptoms Reported ENTM: No Symptoms Reported Respiratoy: Short of Breath Cardiovascular: Palpitations Gastrointestinal/Abdominal: No Symptoms Reported Genitourinary: No Symptoms Reported Neurological: No Symptoms Reported Musculoskeletal: Joint Pain and Muscle Stiffness Integumentary: Dryness Hematologic/Lymphatic: No Symptoms Reported PE Vital Signs Vitals: Vital Signs Temperature 98.3 F Pulse Rate 101 Pulse Rate 106 Pulse Rate 107 Pulse Rate 104 Pulse Rate 102 Pulse Rate 101 Pulse Rate 101 Pulse Rate 100 Pulse Rate 101 Pulse Rate 96 Pulse Rate 95 Pulse Rate 95 Pulse Rate 97 Pulse Rate 96 Pulse Rate 96 Respiratory Rate 23 Respiratory Rate 36 Respiratory Rate 36 Respiratory Rate 38 Respiratory Rate 39 Respiratory Rate 39 Respiratory Rate 42 Respiratory Rate 28 Respiratory Rate 22 Respiratory Rate 44 Respiratory Rate 26 Respiratory Rate 26 Respiratory Rate 46 Respiratory Rate 37 Respiratory Rate 15 Blood Pressure 120/59 Blood Pressure 115/62 Blood Pressure 115/62 Blood Pressure 125/69 O2 Sat by Pulse Oximetry 99 O2 Sat by Pulse Oximetry 99 O2 Sat by Pulse Oximetry 97 O2 Sat by Pulse Oximetry 98 O2 Sat by Pulse Oximetry 97 O2 Sat by Pulse Oximetry 98 O2 Sat by Pulse Oximetry 97 O2 Sat by Pulse Oximetry 97 O2 Sat by Pulse Oximetry 97 O2 Sat by Pulse Oximetry 98 O2 Sat by Pulse Oximetry 97 O2 Sat by Pulse Oximetry 97 O2 Sat by Pulse Oximetry 94 O2 Sat by Pulse Oximetry 98 O2 Sat by Pulse Oximetry 99 General Limitations: No Limitations General Appearance: Alert, Anxious and Cachectic Head Head Exam: Other (temporal wasting ) Eyes Eye exam: Normal Appearance and PERRL ENT ENT Exam: Normal Exam and Normal Oropharynx Neck Neck Exam: Normal Inspection and Full ROM Chest Chest Inspection: Normal Inspection and Symmetric Chest Wall Rise Respiratory Respiratory Exam: Prolonged Expiratory Phase Cardiovascular Cardiovascular Exam: +S1 and +S2 Abdominal Exam Abdominal Exam: Normal Inspection, Normal Bowel Sounds and Soft Neurologic Neurological Exam: Alert Skin Skin Exam: Dry Other Exam Other Exam: cn 2-12 intact ,upper and lower ext tone and power symmetrical MDM Additional Information Obtained Additional Information Obtained From: Old Records Additional Findings:: COPD exacerbation ,cachexia ,bedbound COURSE Treatment Treatment: labs Reevaluation 1st: Unchanged ROR Labs Reviewed Laboratory Results Reviewed?: Yes 05/15/24 17:00 05/15/24 17:00 Laboratory: WBC 9.6 X10^3/uL (3.6-10.0) 05/15/24 17:00 RBC 3.75 X10^6/uL (3.5-5.4) 05/15/24 17:00 Hgb 11.6 g/dL (12.0-16.0) L 05/15/24 17:00 Hct 35.0 % (36.0-47.0) L 05/15/24 17:00 MCV 93.5 fL (80.0-100.0) 05/15/24 17:00 MCH 30.9 pg (27.0-34.0) 05/15/24 17:00 MCHC 33.0 g/dL (33.0-35.0) 05/15/24 17:00 RDW 13.8 % (11.6-16.5) 05/15/24 17:00 Plt Count 360 X10^3/uL (150.0-450.0) 05/15/24 17:00 MPV 7.6 fL (7.4-11.0) 05/15/24 17:00 Neut % (Auto) 72.0 % (42.0-75.0) 05/15/24 17:00 Lymph % (Auto) 17.3 % (21.0-51.0) L 05/15/24 17:00 [place] % (Auto) 8.7 % (0.0-13.0) 05/15/24 17:00 Eos % (Auto) 1.5 % (0.9-2.9) 05/15/24 17:00 Baso % (Auto) 0.5 % (0.2-1.0) 05/15/24 17:00 Neut # (Auto) 6.9 x10^3/uL (2.2-4.8) H 05/15/24 17:00 Lymph # (Auto) 1.7 X10^3/uL (1.3-2.9) 05/15/24 17:00 [place] # (Auto) 0.8 x10^3/uL (0.3-0.8) 05/15/24 17:00 Eos # (Auto) 0.1 x10^3/uL (0.0-0.2) 05/15/24 17:00 Baso # (Auto) 0.0 X10^3/uL (0.0-0.1) 05/15/24 17:00 Absolute Nucleated RBC 0.1 /100WBC 05/15/24 17:00 Sodium 137 mmol/L (136-145) 05/15/24 17:00 Corrected Sodium 138 mmol/L (136-145) 05/15/24 17:00 Potassium 3.3 mmol/L (3.5-5.1) L 05/15/24 17:00 Chloride 96 mmol/L (98-107) L 05/15/24 17:00 Carbon Dioxide 37.4 mmol/L (21-32) H 05/15/24 17:00 BUN 11 mg/dL (7-18) 05/15/24 17:00 Creatinine 0.62 mg/dL (0.55-1.02) 05/15/24 17:00 Est GFR (MDRD) Af Amer > 60 (>60) 05/15/24 17:00 Est GFR (MDRD) Non-Af > 60 (>60) 05/15/24 17:00 Glucose 138 mg/dL (65-99) H 05/15/24 17:00 Calcium 8.8 mg/dL (8.5-10.1) 05/15/24 17:00 Corrected Calcium 10.3 mg/dL (8.5-10.1) H 05/15/24 17:00 Total Bilirubin 0.40 mg/dL (0.2-1.0) 05/15/24 17:00 AST 20 Units/L (15-37) 05/15/24 17:00 ALT 8 Units/L (12-78) L 05/15/24 17:00 Alkaline Phosphatase 61 Units/L (46-116) 05/15/24 17:00 Creatine Kinase 15 Units/L (26-192) L 05/15/24 17:00 Troponin I High Sens 17.4 ng/L (4.0-60.0) 05/15/24 17:00 B-Natriuretic Peptide 184 pg/mL (0-79) H 05/15/24 17:00 Total Protein 6.6 g/dL (6.4-8.2) 05/15/24 17:00 Albumin 2.1 g/dL (3.4-5.0) L 05/15/24 17:00 Globulin 4.5 g/dL (2.5-4.5) 05/15/24 17:00 Albumin/Globulin Ratio 0.5 Ratio (1.1-2.1) L 05/15/24 17:00 SARS-CoV-2 (PCR) Negative (NEGATIVE) 05/15/24 17:00 Influenza Type A (PCR) Negative (NEGATIVE) 05/15/24 17:00 Influenza Type B (PCR) Negative (NEGATIVE) 05/15/24 17:00 RSV (PCR) Negative (NEGATIVE) 05/15/24 17:00 Other Results Comments: CT possible compression fracture old ,CONGLOMERATION OF CONSOLIDATIONS .lara infestation in the house, living alone Opioid Opioid Risk Tool Age (Burak box if 16-45): No History of Preadolescent Sexual Abuse: No Total: 0 Total Score Risk Category: Low Risk Copyright: Kahlil GAINES predicting aberrant behaviors Discharge Plan Diagnosis Discharge Problem: Acute hypokalemia, COPD, severe, Cachectic, Community acquired bacterial pneumonia, Dependence on supplemental oxygen, Bedbound Discharge Plan Patient Disposition: ADMITTED INPATIENT Condition: Stable ADDITIONAL NOTES Additional Notes Additional Notes: spoke with ex daughter in law also. Spoke with Dr. King. Agrees to have patient admit .Cont with oxygen Antibiotics. Pt post hospital care discussed .She is interested on correction /hospice and palliative care
[2024-05-15] MEDS ORDERED: CONSULT PHARMACY - POTASSIUM & MAGNESIUM XX SCH (22:00)
[2024-05-15] MEDS: VIBRAMYCIN 100 MG in NS 100 ML IV + SPIKE MINIBAG* 100 ML IV SCH (22:46)
[2024-05-15] MEDS: VIBRAMYCIN 100 MG in D5W 250 ML IV 250 ML IV SCH (22:54)
--- NOTE | 2024-05-16 02:12 | RAD ---
EXAM:CHEST, 1 VIEWHISTORY:sob;COMPARISON:07/11/2023 r.br.br.br unremarkable. There is increased opacification in the right lower hemithorax due to small pleural effusion and/or basilar atelectasis or consolidation. The left lung is clear. The bony thorax is unremarkable.IMPRESSION:COPD.Small right pleural effusion with right basilar atelectasis and/or consolidationTHIS IS AN ELECTRONICALLY VERIFIED FINAL REPORT05/16/2024 2:09 AM - Electronically signed by Sekou Bae MD
[2024-05-16 06:36] LABS: BASOPHILS # (AUTO) 0.1 X10^3/uL (0.0-0.1); BASOPHILS % (AUTO) 0.7 % (0.2-1.0); EOSINOPHILS # (AUTO) 0.4 x10^3/uL (0.0-0.2); EOSINOPHILS % (AUTO) 4.2 % (0.9-2.9); HEMATOCRIT 35.6 % (36.0-47.0); HEMOGLOBIN 11.7 g/dL (12.0-16.0); LYMPHOCYTES # (AUTO) 1.8 X10^3/uL (1.3-2.9); LYMPHOCYTES % (AUTO) 20.1 % (21.0-51.0); MEAN CORPUSCULAR HEMOGLOBIN 30.6 pg (27.0-34.0); MEAN CORPUSCULAR HGB CONC 32.7 g/dL (33.0-35.0); MEAN CORPUSCULAR VOLUME 93.5 fL (80.0-100.0); MEAN PLATELET VOLUME 8.7 fL (7.4-11.0); MONOCYTES # (AUTO) 1.1 x10^3/uL (0.3-0.8); MONOCYTES % (AUTO) 12.2 % (0.0-13.0); NEUTROPHILS # (AUTO) 5.6 x10^3/uL (2.2-4.8); NEUTROPHILS % (AUTO) 62.8 % (42.0-75.0); PLATELET COUNT 331 X10^3/uL (150.0-450.0); RED BLOOD COUNT 3.81 X10^6/uL (3.5-5.4); RED CELL DISTRIBUTION WIDTH 13.6 % (11.6-16.5)
[2024-05-16 06:51] LABS: ALANINE AMINOTRANSFERASE 10 Units/L (12-78); ALKALINE PHOSPHATASE 58 Units/L (46-116); ASPARTATE AMINO TRANSFERASE 38 Units/L (15-37); BLOOD UREA NITROGEN 10 mg/dL (7-18); CALCIUM 8.8 mg/dL (8.5-10.1); CARBON DIOXIDE 39.7 mmol/L (21-32); CHLORIDE 95 mmol/L (98-107); COR CA(FOR HYPOALB) 10.4 mg/dL (8.5-10.1); CREATININE 0.54 mg/dL (0.55-1.02); GLUCOSE 86 mg/dL (65-99); SODIUM 136 mmol/L (136-145); TOTAL PROTEIN 6.8 g/dL (6.4-8.2); eGFR NON BLACK RACES > 60 (>60)
[2024-05-16 06:56] LABS: POTASSIUM 4.7 mmol/L (3.5-5.1)
[2024-05-16 07:01] LABS: PLATELET MORPHOLOGY COMMENT NORMAL (NORMAL); WHITE BLOOD COUNT 9.5 X10^3/uL (3.6-10.0)
--- NOTE | 2024-05-16 07:55 | RAD ---
EXAM: CHEST, 1 VIEW HISTORY: pneumonia; COMPARISON: 05/15/2024 FINDINGS: Focal areas of abnormal opacity in the right lower lung in the left upper lung are most consistent wi th pneumonia. Small right pleural effusion. No left pleural effusion. Not much changed from yesterday. Heart size is normal. Atherosclerotic calcifications are present in the aorta. The bones are unremarkable. EKG leads are noted. IMPRESSION: 1. Unchanged pneumonia 2. Unchanged right pleural effusion THIS IS AN ELECTRONICALLY VERIFIED FINAL REPORT 05/16/2024 7:43 AM - Electronically signed by Drew Hyman MD
[2024-05-16] MEDS: ROBITUSSIN DM PO SCH (08:26)
[2024-05-16] MEDS: PULMICORT NEB TX 0.5 MG NEB SCH (08:47)
[2024-05-16] MEDS: DUONEB 0.5 MG/3 MG (3 mL) NEB SCH (08:47)
[2024-05-16] MEDS: COREG TAB 3.125 MG PO SCH (09:55)
[2024-05-16] MEDS: CYTOTEC PO SCH (09:55)
[2024-05-16] MEDS: LOVENOX INJ 40 MG SYR SC SCH (09:56)
[2024-05-16] MEDS: PROTONIX TAB 40 MG PO SCH (10:16)
--- NOTE | 2024-05-16 17:26 | DR.H&P ---
H&P History & Physical for Day of: H&P Date: 05/15/24 Chief Complaint Chief Complaint: WEAKNESS, SOB History of Present Illness History of Present Illness: Patient states for the last week she has been having increased sob with exertion and general malaise that keeps getting worse, decrease appetite. Pt has COPD, under the care of Sivan Cruz, states she has had zpack and ordered breathing treatments. Past Medical History Past Medical History: Anemia, COPD and Hypertension Past Surgical History Surgical History: Cholecystectomy, Hysterectomy, Joint Replacement and Other Family History Family Medical History: Diabetes Mellitus, Cancer and [place] Social History Does patient currently use any type of tobacco product: Yes Have you used tobacco products in the last 12 months: Yes Type of Tobacco Use: Cigarettes Does any household member use tobacco: Yes Alcohol Use: Occasionally Drug Use: None Medications Home Medications: Home Medications Medication Instructions Recorded Confirmed Type atorvastatin 10 mg tablet (Lipitor) 10 mg PO HS 03/22/22 11/08/23 History carvedilol 3.125 mg tablet (Coreg) 3.125 mg PO BID 03/22/22 11/08/23 History furosemide 20 mg tablet (Lasix) 20 mg PO BID 03/22/22 11/08/23 History ergocalciferol (vitamin D2) 1,250 1,250 mcg PO 2XW 11/08/23 11/08/23 History mcg (50,000 unit) capsule (Vitamin D2) potassium chloride 10 mEq 10 meq PO BID 11/08/23 11/08/23 History tablet,extended release tramadol 50 mg tablet 50 mg PO Q4H PRN 11/08/23 11/08/23 History Allergies Allergies Allergy/AdvReac Type Severity Reaction Status Date / Time codeine Allergy Unknown Verified 05/15/24 16:44 Labs 05/16/24 06:05 05/16/24 06:05 Labs: 05/16/24 10:25 Sputum - Expectorated Sputum - Final Laboratory WBC 9.5 X10^3/uL (3.6-10.0) 05/16/24 06:05 RBC 3.81 X10^6/uL (3.5-5.4) 05/16/24 06:05 Hgb 11.7 g/dL (12.0-16.0) L 05/16/24 06:05 Hct 35.6 % (36.0-47.0) L 05/16/24 06:05 MCV 93.5 fL (80.0-100.0) 05/16/24 06:05 MCH 30.6 pg (27.0-34.0) 05/16/24 06:05 MCHC 32.7 g/dL (33.0-35.0) L 05/16/24 06:05 RDW 13.6 % (11.6-16.5) 05/16/24 06:05 Plt Count 331 X10^3/uL (150.0-450.0) 05/16/24 06:05 Plt Count Comment Adequate (ADEQUATE) 05/16/24 06:05 MPV 8.7 fL (7.4-11.0) 05/16/24 06:05 Neut % (Auto) 62.8 % (42.0-75.0) 05/16/24 06:05 Lymph % (Auto) 20.1 % (21.0-51.0) L 05/16/24 06:05 Gage % (Auto) 12.2 % (0.0-13.0) 05/16/24 06:05 Eos % (Auto) 4.2 % (0.9-2.9) H 05/16/24 06:05 Baso % (Auto) 0.7 % (0.2-1.0) 05/16/24 06:05 Neut # (Auto) 5.6 x10^3/uL (2.2-4.8) H 05/16/24 06:05 Lymph # (Auto) 1.8 X10^3/uL (1.3-2.9) 05/16/24 06:05 Gage # (Auto) 1.1 x10^3/uL (0.3-0.8) H 05/16/24 06:05 Eos # (Auto) 0.4 x10^3/uL (0.0-0.2) H 05/16/24 06:05 Baso # (Auto) 0.1 X10^3/uL (0.0-0.1) 05/16/24 06:05 Absolute Nucleated RBC 0.0 /100WBC 05/16/24 06:05 Plt Morphology Comment Normal (NORMAL) 05/16/24 06:05 RBC Morphology Normal (NORMAL) 05/16/24 06:05 Sodium 136 mmol/L (136-145) 05/16/24 06:05 Corrected Sodium TNP 05/16/24 06:05 Potassium 4.7 mmol/L (3.5-5.1) 05/16/24 06:05 Chloride 95 mmol/L (98-107) L 05/16/24 06:05 Carbon Dioxide 39.7 mmol/L (21-32) H 05/16/24 06:05 BUN 10 mg/dL (7-18) 05/16/24 06:05 Creatinine 0.54 mg/dL (0.55-1.02) L 05/16/24 06:05 Est GFR (MDRD) Af Amer > 60 (>60) 05/16/24 06:05 Est GFR (MDRD) Non-Af > 60 (>60) 05/16/24 06:05 Glucose 86 mg/dL (65-99) 05/16/24 06:05 Calcium 8.8 mg/dL (8.5-10.1) 05/16/24 06:05 Corrected Calcium 10.4 mg/dL (8.5-10.1) H 05/16/24 06:05 Total Bilirubin 0.60 mg/dL (0.2-1.0) 05/16/24 06:05 AST 38 Units/L (15-37) H 05/16/24 06:05 ALT 10 Units/L (12-78) L 05/16/24 06:05 Alkaline Phosphatase 58 Units/L (46-116) 05/16/24 06:05 Creatine Kinase 15 Units/L (26-192) L 05/15/24 17:00 Troponin I High Sens 17.4 ng/L (4.0-60.0) 05/15/24 17:00 B-Natriuretic Peptide 184 pg/mL (0-79) H 05/15/24 17:00 Total Protein 6.8 g/dL (6.4-8.2) 05/16/24 06:05 Albumin 2.0 g/dL (3.4-5.0) L 05/16/24 06:05 Globulin 4.8 g/dL (2.5-4.5) H 05/16/24 06:05 Albumin/Globulin Ratio 0.4 Ratio (1.1-2.1) L 05/16/24 06:05 SARS-CoV-2 (PCR) Negative (NEGATIVE) 05/15/24 17:00 Influenza Type A (PCR) Negative (NEGATIVE) 05/15/24 17:00 Influenza Type B (PCR) Negative (NEGATIVE) 05/15/24 17:00 RSV (PCR) Negative (NEGATIVE) 05/15/24 17:00 Review of Systems Constitutional: Weakness and Malaise Eyes: No Symptoms Reported ENT: Nose Congestion Respiratory: Cough, Shortness of Breath and SOB with Excertion Cardiovascular: No Symptoms Reported Gastrointestinal: No Symptoms Reported Genitourinary: No Symptoms Reported and Frequency Musculoskeletal: Back Pain Skin: No Symptoms Reported Neurological: Weakness Physical Exam Vital Signs: Vital Signs Temperature 97.9 F Temperature 97.6 F Pulse Rate [Brachial] 92 Pulse Rate [Brachial] 94 Respiratory Rate 18 Respiratory Rate 20 Blood Pressure [Left Arm] 109/55 Blood Pressure [Left Arm] 130/74 O2 Sat by Pulse Oximetry 100 O2 Sat by Pulse Oximetry 98 Oriented: Normal Eyes: Normal Nose: Normal Throat: Exudate and Dry Respiratory: RLL Diminished and LLL Diminished Cardiovascular: Tachycardia : Normal Auscultation: Bowel Sounds: Normal Palpation: Normal Tenderness: Normal Skin: Decreased Turgur Musculoskeletal: Back:Lumbar Psychiatric: Anxiety Mood Description: Anxious Affect: Anxious Speech Pattern: Clear and Appropriate Assessment/Plan (1) Pneumonia: Qualifiers: Pneumonia type: due to unspecified organism Laterality: right Lung location: unspecified part of lung Qualified Code(s): J18.9 - Pneumonia, unspecified organism Narrative Support Text: admit, RESP SWAB IV HYDRATION, SUPPLEMENTAL IV ATBX, BP CONTROL VERIFY HOME MEDICATIONS Status: Acute (2) CHF (congestive heart failure): Qualifiers: Heart failure type: unspecified Heart failure chronicity: chronic Qualified Code(s): I50.9 - Heart failure, unspecified Status: Chronic (3) HTN (hypertension): Qualifiers: Hypertension type: primary hypertension Qualified Code(s): I10 - Essential (primary) hypertension Status: Chronic (4) Anemia: Qualifiers: Anemia type: iron deficiency Iron deficiency anemia type: chronic blood loss Qualified Code(s): D50.0 - Iron deficiency anemia secondary to blood loss (chronic) Status: Acute (5) Pleural effusion on right: Status: Acute
[2024-05-16 18:17] LABS: ABG BASE EXCESS 12.7 mmol/L (-2.0-2.0)
[2024-05-16 18:19] LABS: ABG HCO3 38.9 mmol/L (22-26)
[2024-05-16] MEDS: LIPITOR TAB 10 MG PO SCH (20:43)
[2024-05-17 05:56] LABS: BASOPHILS % (AUTO) 0.5 % (0.2-1.0); EOSINOPHILS # (AUTO) 0.4 x10^3/uL (0.0-0.2); EOSINOPHILS % (AUTO) 5.9 % (0.9-2.9); HEMATOCRIT 32.8 % (36.0-47.0); HEMOGLOBIN 10.6 g/dL (12.0-16.0); LYMPHOCYTES # (AUTO) 1.5 X10^3/uL (1.3-2.9); LYMPHOCYTES % (AUTO) 20.8 % (21.0-51.0); MEAN CORPUSCULAR HEMOGLOBIN 30.5 pg (27.0-34.0); MEAN CORPUSCULAR HGB CONC 32.5 g/dL (33.0-35.0); MEAN CORPUSCULAR VOLUME 93.9 fL (80.0-100.0); MEAN PLATELET VOLUME 8.3 fL (7.4-11.0); MONOCYTES % (AUTO) 14.1 % (0.0-13.0); NEUTROPHILS # (AUTO) 4.1 x10^3/uL (2.2-4.8); NEUTROPHILS % (AUTO) 58.7 % (42.0-75.0); PLATELET COUNT 304 X10^3/uL (150.0-450.0); RED BLOOD COUNT 3.49 X10^6/uL (3.5-5.4); RED CELL DISTRIBUTION WIDTH 13.5 % (11.6-16.5); WHITE BLOOD COUNT 7.1 X10^3/uL (3.6-10.0)
[2024-05-17 06:19] LABS: ALANINE AMINOTRANSFERASE 11 Units/L (12-78); ALBUMIN 1.8 g/dL (3.4-5.0); ALKALINE PHOSPHATASE 49 Units/L (46-116); ASPARTATE AMINO TRANSFERASE 20 Units/L (15-37); BLOOD UREA NITROGEN 9 mg/dL (7-18); CALCIUM 8.6 mg/dL (8.5-10.1); CARBON DIOXIDE 37.8 mmol/L (21-32); CHLORIDE 97 mmol/L (98-107); COR CA(FOR HYPOALB) 10.4 mg/dL (8.5-10.1); CREATININE 0.58 mg/dL (0.55-1.02); GLUCOSE 88 mg/dL (65-99); POTASSIUM 3.1 mmol/L (3.5-5.1); SODIUM 137 mmol/L (136-145); TOTAL PROTEIN 5.8 g/dL (6.4-8.2); eGFR NON BLACK RACES > 60 (>60)
[2024-05-17] MEDS ORDERED: CONSULT PHARMACY - POTASSIUM & MAGNESIUM XX SCH (07:00)
[2024-05-17] MEDS: MICRO K EXTEN CAP 10 MEQ PO SCH (08:50)
[2024-05-17] MEDS: PROTONIX INJ 40 MG VIAL IVP SCH (13:35)
[2024-05-17] MEDS ORDERED: SOLU-Medrol 40 MG VIAL ONE (15:58)
[2024-05-17] MEDS: SOLU-Medrol 40 MG VIAL IVP ONE (16:24)
[2024-05-17] MEDS ORDERED: NS 1/2 1,000 ML IV 1,000 ML IV ONE (20:30)
[2024-05-18 06:32] LABS: BASOPHILS % (AUTO) 0.8 % (0.2-1.0); HEMATOCRIT 30.4 % (36.0-47.0); LYMPHOCYTES # (AUTO) 0.8 X10^3/uL (1.3-2.9); LYMPHOCYTES % (AUTO) 19.2 % (21.0-51.0); MEAN CORPUSCULAR HEMOGLOBIN 30.7 pg (27.0-34.0); MEAN CORPUSCULAR HGB CONC 32.8 g/dL (33.0-35.0); MEAN CORPUSCULAR VOLUME 93.5 fL (80.0-100.0); MEAN PLATELET VOLUME 8.3 fL (7.4-11.0); MONOCYTES # (AUTO) 0.2 x10^3/uL (0.3-0.8); MONOCYTES % (AUTO) 4.5 % (0.0-13.0); NEUTROPHILS % (AUTO) 75.5 % (42.0-75.0); PLATELET COUNT 290 X10^3/uL (150.0-450.0); RED BLOOD COUNT 3.25 X10^6/uL (3.5-5.4); RED CELL DISTRIBUTION WIDTH 13.2 % (11.6-16.5); WHITE BLOOD COUNT 3.9 X10^3/uL (3.6-10.0)
[2024-05-18 06:47] LABS: ALANINE AMINOTRANSFERASE 10 Units/L (12-78); ALBUMIN 1.7 g/dL (3.4-5.0); ALKALINE PHOSPHATASE 51 Units/L (46-116); ASPARTATE AMINO TRANSFERASE 15 Units/L (15-37); BLOOD UREA NITROGEN 10 mg/dL (7-18); CALCIUM 8.8 mg/dL (8.5-10.1); CARBON DIOXIDE 34.7 mmol/L (21-32); CHLORIDE 100 mmol/L (98-107); COR CA(FOR HYPOALB) 10.6 mg/dL (8.5-10.1); COR NA(FOR HYPERGLY) 138 mmol/L (136-145); GLUCOSE 136 mg/dL (65-99); MAGNESIUM 1.7 mg/dL (2.0-2.9); POTASSIUM 3.8 mmol/L (3.5-5.1); SODIUM 137 mmol/L (136-145); TOTAL PROTEIN 5.8 g/dL (6.4-8.2); eGFR NON BLACK RACES > 60 (>60)
[2024-05-19 07:04] LABS: BASOPHILS % (AUTO) 0.4 % (0.2-1.0); EOSINOPHILS # (AUTO) 0.4 x10^3/uL (0.0-0.2); EOSINOPHILS % (AUTO) 5.2 % (0.9-2.9); HEMATOCRIT 28.9 % (36.0-47.0); HEMOGLOBIN 9.5 g/dL (12.0-16.0); LYMPHOCYTES # (AUTO) 1.1 X10^3/uL (1.3-2.9); LYMPHOCYTES % (AUTO) 16.6 % (21.0-51.0); MEAN CORPUSCULAR HEMOGLOBIN 31.1 pg (27.0-34.0); MEAN CORPUSCULAR VOLUME 94.2 fL (80.0-100.0); MEAN PLATELET VOLUME 8.5 fL (7.4-11.0); MONOCYTES # (AUTO) 0.8 x10^3/uL (0.3-0.8); MONOCYTES % (AUTO) 12.1 % (0.0-13.0); NEUTROPHILS # (AUTO) 4.5 x10^3/uL (2.2-4.8); NEUTROPHILS % (AUTO) 65.7 % (42.0-75.0); PLATELET COUNT 330 X10^3/uL (150.0-450.0); RED BLOOD COUNT 3.07 X10^6/uL (3.5-5.4); RED CELL DISTRIBUTION WIDTH 13.5 % (11.6-16.5); WHITE BLOOD COUNT 6.9 X10^3/uL (3.6-10.0)
[2024-05-19 07:20] LABS: ALANINE AMINOTRANSFERASE 8 Units/L (12-78); ALBUMIN 1.6 g/dL (3.4-5.0); ALKALINE PHOSPHATASE 48 Units/L (46-116); ASPARTATE AMINO TRANSFERASE 16 Units/L (15-37); BLOOD UREA NITROGEN 11 mg/dL (7-18); CALCIUM 8.4 mg/dL (8.5-10.1); CARBON DIOXIDE 35.2 mmol/L (21-32); CHLORIDE 103 mmol/L (98-107); COR CA(FOR HYPOALB) 10.3 mg/dL (8.5-10.1); CREATININE 0.69 mg/dL (0.55-1.02); GLUCOSE 98 mg/dL (65-99); MAGNESIUM 1.6 mg/dL (2.0-2.9); POTASSIUM 3.5 mmol/L (3.5-5.1); SODIUM 140 mmol/L (136-145); TOTAL PROTEIN 5.4 g/dL (6.4-8.2); eGFR NON BLACK RACES > 60 (>60)
[2024-05-19] MEDS ORDERED: CONSULT PHARMACY - POTASSIUM & MAGNESIUM XX SCH (08:00)
[2024-05-19] MEDS: MAG-OX TAB PO SCH (08:23)
[2024-05-19 09:47] VITALS: BMI 17.4
[2024-05-19 10:53] VITALS: TEMP 97.6
[2024-05-19 11:40] VITALS: BP 128/56; PULSE 83; RESP 20; O2SAT 97
--- NOTE | 2024-05-23 08:51 | PCM.PROG ---
Progress Note Progress Note for Day of Date of Exam: 05/18/24 Subjective Subjective: This is an 89-year-old white female who was an ER admission on 05/[address] of the chest. The patient states that she had recently seen Sivan Cruz NP, and had taken a Z-Gennaro. She is on 2-3 L nasal cannula with her O2 saturation in the upper 90s. She had a repeat chest x-ray on 05/16 that showed continued pneumonia and a right pleural effusion. 05/16/24 ABG: PH 7.450, pc02 56, p02 108, hc03 38.9, 02 sat 98, fio2 32. We obtained blood and sputum cultures that were negative. Respiratory panel obtained and resulted moderate growth of haemophilus influenza yesterday. She is on doxycycline and rocephin. AM labs: hgb 10, wbc 3.9, bun 10/creatinine 0.50. Past Medical Family Social History Allergies: Allergies codeine Allergy (Unknown, Verified 05/15/24 16:44) Vital Signs and I&O's Intake and Output: Intake & Output 05/19/24 05/20/24 05/21/24 05/22/24 11:59 11:59 11:59 11:59 Intake Total 928 / 928 Balance 928 / 928 Physical Exam Oriented: Normal Eyes: Normal Ear: Normal Nose: Normal Throat: Exudate and Dry Respiratory: Diminished Cardiovascular: Normal : Normal Auscultation: Bowel Sounds: Normal Tenderness: Normal Skin: Decreased Turgur Musculoskeletal: Back:Lumbar Psychiatric: Anxiety Mood Description: Anxious Affect: Anxious Speech Pattern: Clear and Appropriate Laboratory and Diagnostics 05/19/24 05:08 05/19/24 05:08 Labs: 05/15/24 21:15 Blood Blood Culture - Final 05/15/24 21:10 Blood Blood Culture - Final 05/16/24 10:25 Sputum - Expectorated Sputum Sputum Culture - Final 05/16/24 10:25 Sputum - Expectorated Sputum - Final Laboratory WBC 6.9 X10^3/uL (3.6-10.0) 05/19/24 05:08 RBC 3.07 X10^6/uL (3.5-5.4) L 05/19/24 05:08 Hgb 9.5 g/dL (12.0-16.0) L 05/19/24 05:08 Hct 28.9 % (36.0-47.0) L 05/19/24 05:08 MCV 94.2 fL (80.0-100.0) 05/19/24 05:08 MCH 31.1 pg (27.0-34.0) 05/19/24 05:08 MCHC 33.0 g/dL (33.0-35.0) 05/19/24 05:08 RDW 13.5 % (11.6-16.5) 05/19/24 05:08 Plt Count 330 X10^3/uL (150.0-450.0) 05/19/24 05:08 Plt Count Comment Adequate (ADEQUATE) 05/16/24 06:05 MPV 8.5 fL (7.4-11.0) 05/19/24 05:08 Neut % (Auto) 65.7 % (42.0-75.0) 05/19/24 05:08 Lymph % (Auto) 16.6 % (21.0-51.0) L 05/19/24 05:08 [place]am % (Auto) 12.1 % (0.0-13.0) 05/19/24 05:08 Eos % (Auto) 5.2 % (0.9-2.9) H 05/19/24 05:08 Baso % (Auto) 0.4 % (0.2-1.0) 05/19/24 05:08 Neut # (Auto) 4.5 x10^3/uL (2.2-4.8) 05/19/24 05:08 Lymph # (Auto) 1.1 X10^3/uL (1.3-2.9) L 05/19/24 05:08 [place] # (Auto) 0.8 x10^3/uL (0.3-0.8) 05/19/24 05:08 Eos # (Auto) 0.4 x10^3/uL (0.0-0.2) H 05/19/24 05:08 Baso # (Auto) 0.0 X10^3/uL (0.0-0.1) 05/19/24 05:08 Absolute Nucleated RBC 0.1 /100WBC 05/19/24 05:08 Plt Morphology Comment Normal (NORMAL) 05/16/24 06:05 RBC Morphology Normal (NORMAL) 05/16/24 06:05 Sample Site Rb 05/16/24 18:12 ABG pH 7.450 (7.35-7.45) 05/16/24 18:12 ABG pCO2 56.0 mmHg (35.0-45.0) H* 05/16/24 18:12 ABG pO2 108.0 mmHg (80.0-100.0) H 05/16/24 18:12 ABG HCO3 38.9 mmol/L (22-26) H* 05/16/24 18:12 ABG O2 Saturation 98.0 % (90-100) 05/16/24 18:12 ABG Base Excess 12.7 mmol/L (-2.0-2.0) H 05/16/24 18:12 Nabeel Test N/a 05/16/24 18:12 A-a Gradient 50.0 mmHg 05/16/24 18:12 FiO2 32.0 05/16/24 18:12 Blood Gas Comments Pt soha well eb 05/16/24 18:12 Sodium 140 mmol/L (136-145) 05/19/24 05:08 Corrected Sodium TNP 05/19/24 05:08 Potassium 3.5 mmol/L (3.5-5.1) 05/19/24 05:08 Chloride 103 mmol/L (98-107) 05/19/24 05:08 Carbon Dioxide 35.2 mmol/L (21-32) H 05/19/24 05:08 BUN 11 mg/dL (7-18) 05/19/24 05:08 Creatinine 0.69 mg/dL (0.55-1.02) 05/19/24 05:08 Est GFR (MDRD) Af Amer > 60 (>60) 05/19/24 05:08 Est GFR (MDRD) Non-Af > 60 (>60) 05/19/24 05:08 Glucose 98 mg/dL (65-99) 05/19/24 05:08 Calcium 8.4 mg/dL (8.5-10.1) L 05/19/24 05:08 Corrected Calcium 10.3 mg/dL (8.5-10.1) H 05/19/24 05:08 Magnesium 1.6 mg/dL (2.0-2.9) L 05/19/24 05:08 Total Bilirubin 0.20 mg/dL (0.2-1.0) 05/19/24 05:08 AST 16 Units/L (15-37) 05/19/24 05:08 ALT 8 Units/L (12-78) L 05/19/24 05:08 Alkaline Phosphatase 48 Units/L (46-116) 05/19/24 05:08 Creatine Kinase 15 Units/L (26-192) L 05/15/24 17:00 Troponin I High Sens 17.4 ng/L (4.0-60.0) 05/15/24 17:00 B-Natriuretic Peptide 184 pg/mL (0-79) H 05/15/24 17:00 Total Protein 5.4 g/dL (6.4-8.2) L 05/19/24 05:08 Albumin 1.6 g/dL (3.4-5.0) L 05/19/24 05:08 Globulin 3.8 g/dL (2.5-4.5) 05/19/24 05:08 Albumin/Globulin Ratio 0.4 Ratio (1.1-2.1) L 05/19/24 05:08 SARS-CoV-2 (PCR) Negative (NEGATIVE) 05/15/24 17:00 Influenza Type A (PCR) Negative (NEGATIVE) 05/15/24 17:00 Influenza Type B (PCR) Negative (NEGATIVE) 05/15/24 17:00 RSV (PCR) Negative (NEGATIVE) 05/15/24 17:00 Resp Viral Panel (PCR) See scanned report 05/15/24 21:14 Plan (1) Pneumonia: Status: Acute Qualifiers: Laterality: right Lung location: unspecified part of lung Pneumonia type: due to unspecified organism Qualified Code(s): J18.9 - Pneumonia, unspecified organism Plan: consult hospice. continue iv abx, respiratory therapy, supplemental 02. (2) CHF (congestive heart failure): Status: Chronic Qualifiers: Heart failure chronicity: chronic Heart failure type: unspecified Qualified Code(s): I50.9 - Heart failure, unspecified (3) HTN (hypertension): Status: Chronic Qualifiers: Hypertension type: primary hypertension Qualified Code(s): I10 - Essential (primary) hypertension (4) Anemia: Status: Acute Qualifiers: Anemia type: iron deficiency Iron deficiency anemia type: chronic blood loss Qualified Code(s): D50.0 - Iron deficiency anemia secondary to blood loss (chronic) (5) Pleural effusion on right: Status: Acute
--- NOTE | 2024-05-23 08:51 | PCM.PROG ---
Progress Note Progress Note for Day of Date of Exam: 05/17/24 Subjective Subjective: This is an 89-year-old white female who was an ER admission with pneumonia confirmed on CT of the chest. The patient states that she had recently seen Sivan Cruz NP, and had taken a Z-Gennaro. She is on 3 L nasal cannula with her O2 saturation in the upper 90s. She had a repeat chest x-ray yesterday morning that showed continued pneumonia and a right pleural effusion. 05/16/24 ABG: PH 7.450, pc02 56, p02 108, hc03 38.9, 02 sat 98, fio2 32. Upon admission, we obtained blood and respiratory cultures- all negative. AM labs: hgb 10.6, wbc 7.1, k 3.1, bun 9/creatinine 0.58. Past Medical Family Social History Allergies: Allergies codeine Allergy (Unknown, Verified 05/15/24 16:44) Vital Signs and I&O's Vital Signs: Vital Signs Temperature 98.2 F Pulse Rate [Brachial] 93 Pulse Rate 97 Respiratory Rate 19 Blood Pressure [Left Arm] 145/64 O2 Sat by Pulse Oximetry 100 O2 Sat by Pulse Oximetry 99 Intake and Output: Intake & Output 05/15/24 05/16/24 05/17/24 05/18/24 11:59 11:59 11:59 11:59 Intake Total 474 / 474 1447 / 1447 Balance 474 / 474 1447 / 1447 Physical Exam Oriented: Normal Eyes: Normal Ear: Normal Nose: Normal Throat: Exudate and Dry Respiratory: Diminished Cardiovascular: Tachycardia : Normal Auscultation: Bowel Sounds: Normal Tenderness: Normal Skin: Decreased Turgur Musculoskeletal: Back:Lumbar Psychiatric: Anxiety Mood Description: Anxious Affect: Anxious Speech Pattern: Clear and Appropriate Laboratory and Diagnostics 05/19/24 05:08 05/19/24 05:08 Labs: 05/16/24 10:25 Sputum - Expectorated Sputum Sputum Culture - Preliminary 05/16/24 10:25 Sputum - Expectorated Sputum - Final 05/15/24 21:15 Blood Blood Culture - Preliminary 05/15/24 21:10 Blood Blood Culture - Preliminary Laboratory WBC 7.1 X10^3/uL (3.6-10.0) 05/17/24 05:22 RBC 3.49 X10^6/uL (3.5-5.4) L 05/17/24 05:22 Hgb 10.6 g/dL (12.0-16.0) L 05/17/24 05:22 Hct 32.8 % (36.0-47.0) L 05/17/24 05:22 MCV 93.9 fL (80.0-100.0) 05/17/24 05:22 MCH 30.5 pg (27.0-34.0) 05/17/24 05:22 MCHC 32.5 g/dL (33.0-35.0) L 05/17/24 05:22 RDW 13.5 % (11.6-16.5) 05/17/24 05:22 Plt Count 304 X10^3/uL (150.0-450.0) 05/17/24 05:22 Plt Count Comment Adequate (ADEQUATE) 05/16/24 06:05 MPV 8.3 fL (7.4-11.0) 05/17/24 05:22 Neut % (Auto) 58.7 % (42.0-75.0) 05/17/24 05:22 Lymph % (Auto) 20.8 % (21.0-51.0) L 05/17/24 05:22 [place]y % (Auto) 14.1 % (0.0-13.0) H 05/17/24 05:22 Eos % (Auto) 5.9 % (0.9-2.9) H 05/17/24 05:22 Baso % (Auto) 0.5 % (0.2-1.0) 05/17/24 05:22 Neut # (Auto) 4.1 x10^3/uL (2.2-4.8) 05/17/24 05:22 Lymph # (Auto) 1.5 X10^3/uL (1.3-2.9) 05/17/24 05:22 [place]y # (Auto) 1.0 x10^3/uL (0.3-0.8) H 05/17/24 05:22 Eos # (Auto) 0.4 x10^3/uL (0.0-0.2) H 05/17/24 05:22 Baso # (Auto) 0.0 X10^3/uL (0.0-0.1) 05/17/24 05:22 Absolute Nucleated RBC 0.0 /100WBC 05/17/24 05:22 Plt Morphology Comment Normal (NORMAL) 05/16/24 06:05 RBC Morphology Normal (NORMAL) 05/16/24 06:05 Sample Site [facility] 05/16/24 18:12 ABG pH 7.450 (7.35-7.45) 05/16/24 18:12 ABG pCO2 56.0 mmHg (35.0-45.0) H* 05/16/24 18:12 ABG pO2 108.0 mmHg (80.0-100.0) H 05/16/24 18:12 ABG HCO3 38.9 mmol/L (22-26) H* 05/16/24 18:12 ABG O2 Saturation 98.0 % (90-100) 05/16/24 18:12 ABG Base Excess 12.7 mmol/L (-2.0-2.0) H 05/16/24 18:12 Nabeel Test N/a 05/16/24 18:12 A-a Gradient 50.0 mmHg 05/16/24 18:12 FiO2 32.0 05/16/24 18:12 Blood Gas Comments Pt soha well eb 05/16/24 18:12 Sodium 137 mmol/L (136-145) 05/17/24 05:22 Corrected Sodium TNP 05/17/24 05:22 Potassium 3.1 mmol/L (3.5-5.1) L 05/17/24 05:22 Chloride 97 mmol/L (98-107) L 05/17/24 05:22 Carbon Dioxide 37.8 mmol/L (21-32) H 05/17/24 05:22 BUN 9 mg/dL (7-18) 05/17/24 05:22 Creatinine 0.58 mg/dL (0.55-1.02) 05/17/24 05:22 Est GFR (MDRD) Af Amer > 60 (>60) 05/17/24 05:22 Est GFR (MDRD) Non-Af > 60 (>60) 05/17/24 05:22 Glucose 88 mg/dL (65-99) 05/17/24 05:22 Calcium 8.6 mg/dL (8.5-10.1) 05/17/24 05:22 Corrected Calcium 10.4 mg/dL (8.5-10.1) H 05/17/24 05:22 Total Bilirubin 0.30 mg/dL (0.2-1.0) 05/17/24 05:22 AST 20 Units/L (15-37) 05/17/24 05:22 ALT 11 Units/L (12-78) L 05/17/24 05:22 Alkaline Phosphatase 49 Units/L (46-116) 05/17/24 05:22 Creatine Kinase 15 Units/L (26-192) L 05/15/24 17:00 Troponin I High Sens 17.4 ng/L (4.0-60.0) 05/15/24 17:00 B-Natriuretic Peptide 184 pg/mL (0-79) H 05/15/24 17:00 Total Protein 5.8 g/dL (6.4-8.2) L 05/17/24 05:22 Albumin 1.8 g/dL (3.4-5.0) L 05/17/24 05:22 Globulin 4.0 g/dL (2.5-4.5) 05/17/24 05:22 Albumin/Globulin Ratio 0.5 Ratio (1.1-2.1) L 05/17/24 05:22 SARS-CoV-2 (PCR) Negative (NEGATIVE) 05/15/24 17:00 Influenza Type A (PCR) Negative (NEGATIVE) 05/15/24 17:00 Influenza Type B (PCR) Negative (NEGATIVE) 05/15/24 17:00 RSV (PCR) Negative (NEGATIVE) 05/15/24 17:00 Resp Viral Panel (PCR) See scanned report 05/15/24 21:14 Plan (1) Pneumonia: Status: Acute Qualifiers: Laterality: right Lung location: unspecified part of lung Pneumonia type: due to unspecified organism Qualified Code(s): J18.9 - Pneumonia, unspecified organism Plan: potassium replacement, 1 time dose of solumedrol, consult hospice. continue iv abx, respiratory therapy, supplemental 02. (2) CHF (congestive heart failure): Status: Chronic Qualifiers: Heart failure chronicity: chronic Heart failure type: unspecified Qualified Code(s): I50.9 - Heart failure, unspecified (3) HTN (hypertension): Status: Chronic Qualifiers: Hypertension type: primary hypertension Qualified Code(s): I10 - Ess ential (primary) hypertension (4) Anemia: Status: Acute Qualifiers: Anemia type: iron deficiency Iron deficiency anemia type: chronic blood loss Qualified Code(s): D50.0 - Iron deficiency anemia secondary to blood loss (chronic) (5) Pleural effusion on right: Status: Acute
== END 2024-05-19 13:11 | disposition hospice, home (50) | DRG 194 ==
LOC: ER 16:34 → MED/SURG 20:58
PROVIDERS: ADMIT Internal Medicine; ATTEND Internal Medicine
DX: J90 Pleural effusion, not elsewhere classified; I11.0 Hypertensive heart disease with heart failure; E83.42 Hypomagnesemia; R94.31 Abnormal electrocardiogram [ECG] [EKG]; Z99.81 Dependence on supplemental oxygen; D50.0 Iron deficiency anemia secondary to blood loss (chronic); J14 Pneumonia due to Hemophilus influenzae; R10.84 Generalized abdominal pain; I50.9 Heart failure, unspecified; Z20.822 Contact with and (suspected) exposure to COVID-19; R06.02 Shortness of breath; E87.6 Hypokalemia; R26.89 Other abnormalities of gait and mobility; Z59.82 Transportation insecurity; J44.9 Chronic obstructive pulmonary disease, unspecified